=== PATIENT | female | born 1935 | race Caucasian/White ===

== ENCOUNTER → 2018-04-10 13:13 | Outpatient (CLI) | payer MEDICARE, OTHER, SELFPAY ==
[2018-04-10 13:50] LABS: Add Manual Diff / Slide Review NO; Basophils Percent Auto 1.2 % (0-2); Eosinophils Percent Auto 0.1 % (2-4); Hematocrit 31.2 % (36-46); Hemoglobin 10.9 g/dL (12.0-16.0); Lymphocytes Percent Auto 19.1 % (25-40); Mean Corpuscular HGB Conc 34.9 % (30-36); Mean Corpuscular Hemoglobin 33.7 PG (26-34); Mean Corpuscular Volume 96.7 fL (80-100); Monocytes Percent Auto 2.5 % (3-14); Neutrophils Absolute Auto 7500 /uL (3000-5900); Neutrophils Percent Auto 77.1 % (50-75); Platelet Count 245 X10^3/uL (150-400); Red Blood Cell Count 3.23 X10^6/uL (4.0-5.2); Red Cell Distribution Width 14.7 % (11.6-14.8); White Blood Cell Count 9.8 X10^3/uL (4.5-11.0)
[2018-04-10 14:02] LABS: BUN Creatinine Ratio 23.3 (6-22); Calcium 9.3 mg/dL (8.4-10.2); Estimated Glomerular Filt Rate 33.4 mL/min (>60); Glucose 114 mg/dL (80-110); HEMOLYSIS < 15 (0-50); Sodium 132 mmol/L (137-145)
== END ==
PROVIDERS: PCP Family Medicine; Visit Provider Internal Medicine Nephrology
DX: D63.1 Anemia in chronic kidney disease (principal)
CPT/HCPCS: 36415; 80048; 85025

== ENCOUNTER → 2018-05-08 13:04 | Oncology outpatient (ONC) | payer MEDICARE, OTHER, SELFPAY ==
[2018-05-08 13:29] LABS: Hematocrit 31.4 % (36-46); Hemoglobin 10.6 g/dL (12.0-16.0); Mean Corpuscular HGB Conc 33.7 % (30-36); Mean Corpuscular Hemoglobin 32.1 PG (26-34); Mean Corpuscular Volume 95.5 fL (80-100); Platelet Count 302 X10^3/uL (150-400); Red Blood Cell Count 3.29 X10^6/uL (4.0-5.2); White Blood Cell Count 12.5 X10^3/uL (4.5-11.0)
[2018-05-08 13:30] LABS: Add Manual Diff / Slide Review YES
[2018-05-08 13:33] LABS: Blood Urea Nitrogen 36 mg/dL (7-17); Calcium 9.5 mg/dL (8.4-10.2); Carbon Dioxide 30 mmol/L (22-32); Chloride 97 mmol/L (98-107); Estimated Glomerular Filt Rate 33.4 mL/min (>60); Glucose 89 mg/dL (80-110); HEMOLYSIS < 15 (0-50); Potassium 4.3 mmol/L (3.4-5.1); Sodium 136 mmol/L (137-145)
--- NOTE | 2018-05-08 13:48 | PC.NURSE ---
HG 10.6-no shot needed per parameters.Pt /caregiver informed
[2018-05-08 13:58] LABS: Neutrophils Absolute Manual 8625 /uL (3000-5900); Nucleated Red Blood Cells 1 #/Diff; RBC Morphology Normal Morphology; Total Cells Counted 100
== END ==
LOC: ONC 13:06
PROVIDERS: Internal Medicine Nephrology; PCP Family Medicine; Visit Provider Family Medicine
DX: D63.1 Anemia in chronic kidney disease (principal); D64.9 Anemia, unspecified
CPT/HCPCS: 36415; 80048; 85025

== ENCOUNTER → 2018-06-05 14:06 | Outpatient (CLI) | payer MEDICARE, OTHER, SELFPAY ==
[2018-06-05 14:24] LABS: Add Manual Diff / Slide Review NO; Basophils Percent Auto 0.7 % (0-2); Hematocrit 29.9 % (36-46); Hemoglobin 10.2 g/dL (12.0-16.0); Mean Corpuscular HGB Conc 34.1 % (30-36); Mean Corpuscular Hemoglobin 32.1 PG (26-34); Mean Corpuscular Volume 94.2 fL (80-100); Monocytes Percent Auto 4.1 % (3-14); Neutrophils Absolute Auto 9500 /uL (3000-5900); Neutrophils Percent Auto 80.2 % (50-75); Platelet Count 293 X10^3/uL (150-400); Red Blood Cell Count 3.17 X10^6/uL (4.0-5.2); Red Cell Distribution Width 14.5 % (11.6-14.8); White Blood Cell Count 11.9 X10^3/uL (4.5-11.0)
[2018-06-05 14:44] LABS: Blood Urea Nitrogen 35 mg/dL (7-17); Calcium 9.5 mg/dL (8.4-10.2); Carbon Dioxide 29 mmol/L (22-32); Chloride 94 mmol/L (98-107); Estimated Glomerular Filt Rate 36.1 mL/min (>60); Glucose 98 mg/dL (80-110); HEMOLYSIS < 15 (0-50); Potassium 4.4 mmol/L (3.4-5.1); Sodium 131 mmol/L (137-145)
== END ==
PROVIDERS: PCP Family Medicine; Visit Provider Internal Medicine Nephrology
DX: N18.3 Chronic kidney disease, stage 3 (moderate) (principal); D63.1 Anemia in chronic kidney disease
CPT/HCPCS: 36415; 80048; 85025

== ENCOUNTER 2018-06-14 10:55 | Inpatient (IN) | payer MEDICARE, OTHER, SELFPAY ==
[2018-06-14 11:00] VITALS: BP 170/88; PULSE 98; RESP 18; TEMP 36.4; O2SAT 99
--- NOTE | 2018-06-14 11:14 | ED_ITS ---
HPI - General Adult General Chief complaint: Altered Mental Status Stated complaint: sister states she is very distressed Time Seen by Provider: 06/14/18 11:02 Source: family Mode of arrival: ambulatory Limitations: no limitations History of Present Illness HPI narrative: 83-year-old female brought in by the family for concerns of not being able to take care of her at home. Patient's family reports that over the past several days the patient has become more confused and agitated at home. They report that she has been repeating herself on multiple things and apologizing all the time For no reason. No reports of trauma. Patient is living with her brother and his because the patient's is in a rehab facility after fall he took approximately 1 week ago. Patient's family reports that they feel like her mental status has been deteriorating over the past several days. Related Data Home Medications Medication Instructions Recorded Confirmed estradiol 1 mg PO QDAY #0 02/01/04 06/14/18 carvedilol [Coreg] 12.5 mg PO BID #0 11/12/16 06/14/18 prednisone 20 mg PO DAILY #0 05/03/17 06/14/18 sodium bicarbonate 650 mg PO BID #0 05/03/17 06/14/18 acyclovir 800 mg PO 5XD #0 09/19/17 06/14/18 potassium chloride [Klor-Con M20] 20 meq PO BIDCC #0 09/19/17 06/14/18 citalopram 20 mg tablet 20 mg PO DAILY 06/11/18 06/14/18 clotrimazole-betamethasone 1 1 applic TOP BID 10 Days #30 gram 06/11/18 06/14/18 %-0.05 % topical cream tqlzvtem-egj-QQ-lycopen-lutein 1 tab PO DAILY 06/14/18 06/14/18 [Centrum Silver] Previous Rx's Medication Instructions Recorded magnesium 200 mg PO QDAY #30 tab 03/26/17 quetiapine 100 mg tablet 100 mg PO HS 30 Days #30 tab 04/10/18 Allergies Allergy/AdvReac Type Severity Reaction Status Date / Time ascorbic acid Allergy Unknown Verified 06/14/18 11:44 aspirin [ASPIRIN] Allergy Unknown CHILDHOOD Verified 06/14/18 11:44 RX. Review of Systems Review of Systems Patient denies any symptoms Constitutional Denies headache(s) ENT Ears, Nose, Mouth, and Throat: Denies headache(s) Cardiovascular Denies chest pain and Denies dyspnea Respiratory Denies cough and Denies dyspnea Gastrointestinal Gastrointestinal: Denies abdominal pain, Denies diarrhea and Denies vomiting Genitourinary Denies dysuria and Denies urinary incontinence Musculoskeletal Denies myalgias and Denies arthralgias Integumentary/Breasts Denies lesions and Denies rash Neurologic Reports behavioral changes ( reported by family patient denies this), Denies confusion and Denies headache(s) Psychiatric Reports behavioral changes ( reported by family patient denies this) and Denies confusion Hematologic/Lymphatic Denies easy bleeding and Denies easy bruising PFSH Medical History Hypertension (Acute) Urinary retention (Acute) Social History Smoking Status: Never smoker Exam Initial Vital Signs Initial Vital Signs: Vital Signs Temperature 97.5 F L 06/14/18 11:00 Pulse Rate 98 H 06/14/18 11:00 Respiratory Rate 18 06/14/18 11:00 Blood Pressure 170/88 H 06/14/18 11:00 Pulse Oximetry 99 06/14/18 11:00 Const General: cooperative, comfortable, well groomed and No acute distress Orientation: alert and awake HENMT Head: normal to inspection and normocephalic Resp Effort & Inspection: normal respiratory effort Auscultation: clear to auscultation bilaterally Cardio Rate: regular rate Rhythm: regular rhythm Pulses: radial pulses present GI Inspection: non-distended Palpation: soft, No firm and No tender Other: patient with a bladder prolapse Back/Spine/Pelvis Back: No CVA tenderness Skin Lesions: no lesions Rashes: no rashes Neuro General: alert, awake and oriented ( person and place had trouble with the year) Speech: speech normal Extrem General: normal to inspection and capillary refill normal Psych Appearance: grossly normal, well kempt and not disheveled Course Orders Ordered: ED Orders 06/14/18 11:48 Consult to [employer] Stat 06/14/18 11:53 Acetaminophen Stat Ammonia (NH3) Stat Complete Blood Count AUTO DIFF Stat Comprehensive Metabolic Panel Stat Ethanol (ETOH) Stat Salicylate Stat Thyroid Stimulating Hormone Stat 06/14/18 13:25 Urinalysis and Microscopic Stat Urine Culture Stat Urine Drug Screen, Rapid Stat 06/14/18 16:36 Consult to Physician Routine 06/14/18 19:45 Education, smoking cessation ONGOING 06/14/18 19:49 Consult to [employer] Routine 06/15/18 05:00 Basic Metabolic Panel Routine Complete Blood Count AUTO DIFF Routine Magnesium Routine Acetaminophen (Tylenol) 650 mg PO Q6HR PRN PRN Reason: As Needed for Fever/Mild Pain Calcium Carbonate (Tums) 1,000 mg PO Q4HR PRN PRN Reason: Dyspepsia Carvedilol (Coreg) 12.5 mg PO BID [facility] Citalopram Hydrobromide (Celexa) 20 mg PO DAILY [facility] Enoxaparin Sodium (Lovenox) 30 mg SUBCUT DAILY [facility] Estradiol (Estrace) 1 mg PO DAILY IVAN Magnesium Hydroxide (Milk Of Magnesia) 30 ml PO DAILY PRN PRN Reason: Constipation Potassium Chloride (Klor-Con M20) 20 meq PO BIDWM IVAN Prednisone (Deltasone) 20 mg PO DAILY [facility] Quetiapine Fumarate (Seroquel) 100 mg PO BEDTIME [facility] Vital Signs - 8 hr 06/14/18 13:00 06/14/18 16:07 06/14/18 19:59 Pulse Rate 78 84 Respiratory Rate 21 18 Blood Pressure [Left Arm] 157/87 H 191/85 H Pulse Oximetry 98 99 99 Medical Decision Making [facility] Narrative Medical decision making narrative: patient is alert and oriented to person and place. She denies any symptoms upon my evaluation. She denies any urinary symptoms however did have a bladder prolapse and with multiple attempts to urinate here in the emergency department was unable to. A Arteaga catheter was placed with a return of greater than 1000 cc of urine. The Arteaga was left in place. It does not show that there is any signs of a urinary tract infection. Patient's family was at bedside state that she has been deteriorating over the past several days and is becoming more agitated. Unable to contact the patient' s primary doctor or her mental health provider because they are not in the office today. The last mental health provider notes stated they were going to increase her medication in the evening And then re-evaluate. This was done earlier this week. Patient was seen by social work here in the emergency department. She was also evaluated by the [facility] facility where her is currently located. They did not want to take the patient until they knew what her baseline mental status was at night. Patient's family refusing to take the patient home citing safety issues They state that they are not able to take care of her at home. discussed the case with Dr. Crowe who will admit for observation discussed the case with the family who are in agreement. The patient does not want to be admitted to the hospital. Does have an elevated white blood cell count but no other signs of infection patient is also hypothyroid Lab Data Lab results reviewed: Yes I reviewed the patient's lab results. Result diagrams: 06/14/18 11:53 06/14/18 11:53 Lab Results 06/14/18 06/14/18 06/14/18 Range/Units 11:53 11:53 11:53 WBC 13.3 H (4.5-11.0) X10^3/uL RBC 3.69 L (4.0-5.2) X10^6/uL Hgb 11.8 L (12.0-16.0) g/dL Hct 34.3 L (36-46) % MCV 93.2 (80-100) fL MCH 32.0 (26-34) PG MCHC 34.3 (30-36) % RDW 14.5 (11.6-14.8) % Plt Count 321 (150-400) X10^3/uL Neut % (Auto) 73.6 (50-75) % Lymph % (Auto) 19.7 L (25-40) % [place] % (Auto) 6.1 (3-14) % Eos % (Auto) 0.1 L (2-4) % Baso % (Auto) 0.5 (0-2) % Neut # (Auto) 9800 H (6403-2614) /uL Sodium 127 L (137-145) mmol/L Potassium 4.7 (3.4-5.1) mmol/L Chloride 92 L (98-107) mmol/L Carbon Dioxide 25 (22-32) mmol/L BUN 40 H (7-17) mg/dL Creatinine 1.60 H (0.52-1.04) mg/dL Estimated GFR 30.9 L (>60) mL/min BUN/Creatinine Ratio 25.0 H (6-22) Glucose 98 (80-110) mg/dL Calcium 10.1 (8.4-10.2) mg/dL Total Bilirubin 0.5 (0.2-1.3) mg/dL AST 29 (14-36) IU/L ALT 21 (9-52) IU/L Alkaline Phosphatase 68 (38-126) U/L Ammonia < 9.0 L (9-30) umol/L Total Protein 7.5 (6.3-8.2) g/dL Albumin 4.3 (3.5-5.0) g/dL Globulin 3.2 (1.7-4.1) g/dL Albumin/Globulin Ratio 1.3 (1.0-2.8) TSH (0.47-4.68) uIU/mL Urine Color Urine Appearance Urine pH (4.5-8.0) Ur Specific [place] (1.000-1.035) Urine Protein (Negative) Urine Glucose (UA) (Normal) g/dL Urine Ketones (NEGATIVE) Urine Occult Blood (Negative) Urine Nitrate (Negative) Urine Bilirubin (NEGATIVE) Urine Urobilinogen (0.2) E.U./dL Ur Leukocyte Esterase (NEGATIVE) Urine RBC (0-5/HPF) Urine WBC (0-5/HPF) Ur Squamous Epith Cells Urine Bacteria (None) Ur Culture Indicated? Micro UA Comment Salicylates < 1.0 (<20) mg/dL Urine Opiates Screen (Negative) Ur Oxycodone Screen (Negative) Urine Methadone Screen (Negative) Acetaminophen < 10 L (10-30) ug/mL Ur Barbiturates Screen (Negative) U Tricyclic Antidepress (Negative) Ur Phencyclidine Scrn (Negative) Ur Amphetamines Screen (Negative) U Methamphetamines Scrn (Negative) Ur MDMA Scrn (Ecstasy) (Negative) U Benzodiazepines Scrn (Negative) Urine Cocaine Screen (Negative) U Marijuana (THC) Screen (Negative) Ethyl Alcohol < 10 mg/dL 06/14/18 06/14/18 06/14/18 Range/Units 11:53 13:25 13:25 WBC (4.5-11.0) X10^3/uL RBC (4.0-5.2) X10^6/uL Hgb (12.0-16.0) g/dL Hct (36-46) % MCV (80-100) fL MCH (26-34) PG MCHC (30-36) % RDW (11.6-14.8) % Plt Count (150-400) X10^3/uL Neut % (Auto) (50-75) % Lymph % (Auto) (25-40) % [place] % (Auto) (3-14) % Eos % (Auto) (2-4) % Baso % (Auto) (0-2) % Neut # (Auto) (1771-8694) /uL Sodium (137-145) mmol/L Potassium (3.4-5.1) mmol/L Chloride (98-107) mmol/L Carbon Dioxide (22-32) mmol/L BUN (7-17) mg/dL Creatinine (0.52-1.04) mg/dL Estimated GFR (>60) mL/min BUN/Creatinine Ratio (6-22) Glucose (80-110) mg/dL Calcium (8.4-10.2) mg/dL Total Bilirubin (0.2-1.3) mg/dL AST (14-36) IU/L ALT (9-52) IU/L Alkaline Phosphatase (38-126) U/L Ammonia (9-30) umol/L Total Protein (6.3-8.2) g/dL Albumin (3.5-5.0) g/dL Globulin (1.7-4.1) g/dL Albumin/Globulin Ratio (1.0-2.8) TSH 16.70 H (0.47-4.68) uIU/mL Urine Color Yellow Urine Appearance Clear Urine pH 7.0 (4.5-8.0) Ur Specific [place] 1.015 (1.000-1.035) Urine Protein Negative (Negative) Urine Glucose (UA) Negative (Normal) g/dL Urine Ketones Negative (NEGATIVE) Urine Occult Blood Trace-lysed (Negative) Urine Nitrate Negative (Negative) Urine Bilirubin Negative (NEGATIVE) Urine Urobilinogen 0.2 (0.2) E.U./dL Ur Leukocyte Esterase Negative (NEGATIVE) Urine RBC 1-5/hpf (0-5/HPF) Urine WBC 0-1/hpf (0-5/HPF) Ur Squamous Epith Cells 0-1 /hpf Urine Bacteria Occasional (0-1) (None) Ur Culture Indicated? Not Reportable Micro UA Comment Not Reportable Salicylates (<20) mg/dL Urine Opiates Screen Negative (Negative) Ur Oxycodone Screen Negative (Negative) Urine Methadone Screen Negative (Negative) Acetaminophen (10-30) ug/mL Ur Barbiturates Screen Negative (Negative) U Tricyclic Antidepress Positive H (Negative) Ur Phencyclidine Scrn Negative (Negative) Ur Amphetamines Screen Negative (Negative) U Methamphetamines Scrn Negative (Negative) Ur MDMA Scrn (Ecstasy) Negative (Negative) U Benzodiazepines Scrn Negative (Negative) Urine Cocaine Screen Negative (Negative) U Marijuana (THC) Screen Negative (Negative) Ethyl Alcohol mg/dL Discharge Plan Departure Patient Disposition: Admitted as Observation Clinical Impression: Acute urinary retention, Hypothyroid, Acute alteration in mental status Discharge Date/Time: 06/14/18 16:47 Admit Date/Time: 06/14/18 16:31 Admit Provider: Malik Crowe
--- NOTE | 2018-06-14 11:42 | PC.NURSE ---
Pt has prolapsed bladder noted when pt escorted to bathroom. Pt states she can not void. Dr. Sheriff made aware.
[2018-06-14 12:25] LABS: Acetaminophen < 10 ug/mL (10-30); Alanine Aminotransferase 21 IU/L (9-52); Albumin 4.3 g/dL (3.5-5.0); Albumin Globulin Ratio 1.3 (1.0-2.8); Alkaline Phosphatase 68 U/L (38-126); Ammonia (NH3) < 9.0 umol/L (9-30); Aspartate Aminotransferase 29 IU/L (14-36); Bilirubin Total 0.5 mg/dL (0.2-1.3); Blood Urea Nitrogen 40 mg/dL (7-17); Calcium 10.1 mg/dL (8.4-10.2); Carbon Dioxide 25 mmol/L (22-32); Chloride 92 mmol/L (98-107); Estimated Glomerular Filt Rate 30.9 mL/min (>60); Ethanol (ETOH) < 10 mg/dL; Globulin 3.2 g/dL (1.7-4.1); Glucose 98 mg/dL (80-110); HEMOLYSIS 39 (0-50); Potassium 4.7 mmol/L (3.4-5.1); Sodium 127 mmol/L (137-145); Total Protein 7.5 g/dL (6.3-8.2)
[2018-06-14 12:26] LABS: Add Manual Diff / Slide Review NO; Basophils Percent Auto 0.5 % (0-2); Eosinophils Percent Auto 0.1 % (2-4); Hematocrit 34.3 % (36-46); Hemoglobin 11.8 g/dL (12.0-16.0); Lymphocytes Percent Auto 19.7 % (25-40); Mean Corpuscular HGB Conc 34.3 % (30-36); Mean Corpuscular Volume 93.2 fL (80-100); Monocytes Percent Auto 6.1 % (3-14); Neutrophils Absolute Auto 9800 /uL (3000-5900); Neutrophils Percent Auto 73.6 % (50-75); Platelet Count 321 X10^3/uL (150-400); Red Blood Cell Count 3.69 X10^6/uL (4.0-5.2); Red Cell Distribution Width 14.5 % (11.6-14.8); Salicylate < 1.0 mg/dL (<20); White Blood Cell Count 13.3 X10^3/uL (4.5-11.0)
[2018-06-14 13:00] VITALS: BP 157/87; PULSE 78; RESP 21; O2SAT 98
--- NOTE | 2018-06-14 13:31 | PC.NURSE ---
Dr. Sheriff reduced prolapsed bladder and I placed gandara without difficulty. > 1000 cc out.
[2018-06-14 13:41] LABS: Appearance Urine UA CLEAR; Bilirubin Urine UA NEGATIVE (NEGATIVE); Color Urine UA YELLOW; Glucose Urine UA NEGATIVE (Normal); Ketones Urine UA NEGATIVE (NEGATIVE); Leukocyte Esterase Urine UA NEGATIVE (NEGATIVE); Nitrite Urine UA Negative (Negative); Occult Blood Urine UA TRACE-LYSED (Negative); Protein Urine UA NEGATIVE (Negative); Specific Gravity Urine UA 1.015 (1.000-1.035); Urobilinogen Urine UA 0.2 E.U./dL (0.2)
[2018-06-14 13:52] LABS: Bacteria Urine Occasional (0-1); RBC Urine 1-5/HPF (0-5/HPF); Squamous Epithelial Cell Urine 0-1 /HPF; WBC Urine 0-1/HPF (0-5/HPF)
[2018-06-14 13:57] LABS: Urine Amphetamines Negative (Negative); Urine Barbiturates Negative (Negative); Urine Benzodiazepines Negative (Negative); Urine Cocaine Negative (Negative); Urine MDMA Negative (Negative); Urine Methadone Negative (Negative); Urine Methamphetamines Negative (Negative); Urine Morphine/Opi cutoff 2000 Negative (Negative); Urine Phencyclidine Negative (Negative); Urine Tetrahydrocannabinol Negative (Negative)
[2018-06-14 13:58] LABS: Urine Oxycodone Negative (Negative); Urine Tricyclic Antidepressant Positive (Negative)
[2018-06-14 16:07] VITALS: BP 191/85; PULSE 84; RESP 18; O2SAT 99
[2018-06-14 16:55] VITALS: BMI 20.4
[2018-06-14 19:10] VITALS: BP 192/95; PULSE 78; RESP 16; TEMP 36.9; O2SAT 97
--- NOTE | 2018-06-14 19:48 | PC.NURSE ---
Pt to acute care approx at 1710. Pt able to transfer from ER stretcher to AC bed SBA. Pt agitated and tearful stating, I don't know why I am here. I feel like I am getting railroaded by my sister and her ! Frequent reminders needed to pt to remind her that she has a catheter in place. Arteaga patent, draining clear yellow urine. Pt denies pain, nausea. and numbness and tingling. BA in place. Pt niece at bedside. 99% RA, LS clear. Pt orientated to room, call light, and bed controls with reminders needed d/t pt baseline dementia. Will continue to monitor.
--- NOTE | 2018-06-14 19:53 | PM.HP.1 ---
History of Present Illness Date Patient Seen: 06/14/18 Time Patient Seen: 19:53 Chief complaint: sister states she is very distressed Narrative: 83-year-old patient who usually lives with her who had a rather significant fall of a couple weeks ago I think falling down the stairs at home causing some bleeding intracranially as well as a neck injury that led to a visit 1st to our ER and then to [facility] for stay. On discharge from there he moved to [facility] which he's has been at for the past 4 days. In the meantime patient has been living with her brother and [id number] I think but apparently she has been quite disturbed by this process, quite confused, up through the night loudly complaining and disruptive. Seems to be getting worse apparently so she was brought to the emergency room today for evaluation. She was found to have significant urinary retention but nothing else that seen at the place. It seemed most appropriate for her to return home to see her usual MD in the office tomorrow but the family refused to take her home as the disruption that she caused was causing issues for the family that they could no longer tolerate. Talking with the patient today she has no idea why she is here she has a sense that it is due to some issues with family so she is frustrated and fearful she insisted several times that she just wanted to be back home with her even as I explained the above. She denies any particular complaints denies any issues at home. A grandniece I think came in later and added a calming influence. Patient History Medical History Hypertension (Acute) Family & Social History Safety & Behavioral: Feels Safe in Current Yes Environment Been Physically Hurt or No Threatened By a Person Tobacco & Substance use: Smoking Status Never smoker alcohol intake frequency 0-2 drinks per day Substance Use Type does not use Meds Home Medications Medication Instructions Recorded Confirmed Type estradiol 1 mg PO QDAY #0 02/01/04 06/14/18 History carvedilol [Coreg] 12.5 mg PO BID #0 11/12/16 06/14/18 History magnesium 200 mg PO QDAY #30 tab 03/26/17 06/14/18 Rx prednisone 20 mg PO DAILY #0 05/03/17 06/14/18 History sodium bicarbonate 650 mg PO BID #0 05/03/17 06/14/18 History acyclovir 800 mg PO 5XD #0 09/19/17 06/14/18 History potassium chloride [Klor-Con M20] 20 meq PO BIDCC #0 09/19/17 06/14/18 History quetiapine 100 mg tablet 100 mg PO HS 30 Days #30 tab 04/10/18 06/14/18 Rx citalopram 20 mg tablet 20 mg PO DAILY 06/11/18 06/14/18 History clotrimazole-betamethasone 1 1 applic TOP BID 10 Days #30 gram 06/11/18 06/14/18 History %-0.05 % topical cream amlucnsr-gad-RB-lycopen-lutein 1 tab PO DAILY 06/14/18 06/14/18 History [Centrum Silver] Allergies Allergy/AdvReac Type Severity Reaction Status Date / Time ascorbic acid Allergy Unknown Verified 06/14/18 11:44 aspirin [ASPIRIN] Allergy Unknown CHILDHOOD Verified 06/14/18 11:44 RX. Exam Vital Signs (past 8 hours): - 06/14/18 13:00 06/14/18 16:07 Pulse Rate 78 84 Respiratory Rate 21 18 Blood Pressure [Left Arm] 157/87 H 191/85 H Pulse Oximetry 98 99 Oxygen Delivery Method Room Air Objective Labs Result Diagrams: 06/14/18 11:53 06/14/18 11:53 Labs: Laboratory Results - last 24 hr 06/14/18 06/14/18 06/14/18 11:53 11:53 11:53 WBC 13.3 H RBC 3.69 L Hgb 11.8 L Hct 34.3 L MCV 93.2 MCH 32.0 MCHC 34.3 RDW 14.5 Plt Count 321 Neut % (Auto) 73.6 Lymph % (Auto) 19.7 L [place] % (Auto) 6.1 Eos % (Auto) 0.1 L Baso % (Auto) 0.5 Neut # (Auto) 9800 H Sodium 127 L Potassium 4.7 Chloride 92 L Carbon Dioxide 25 BUN 40 H Creatinine 1.60 H Estimated GFR 30.9 L BUN/Creatinine Ratio 25.0 H Glucose 98 Calcium 10.1 Total Bilirubin 0.5 AST 29 ALT 21 Alkaline Phosphatase 68 Ammonia < 9.0 L Total Protein 7.5 Albumin 4.3 Globulin 3.2 Albumin/Globulin Ratio 1.3 TSH Urine Color Urine Appearance Urine pH Ur Specific [place] Urine Protein Urine Glucose (UA) Urine Ketones Urine Occult Blood Urine Nitrate Urine Bilirubin Urine Urobilinogen Ur Leukocyte Esterase Urine RBC Urine WBC Ur Squamous Epith Cells Urine Bacteria Ur Culture Indicated? Micro UA Comment Salicylates < 1.0 Urine Opiates Screen Ur Oxycodone Screen Urine Methadone Screen Acetaminophen < 10 L Ur Barbiturates Screen U Tricyclic Antidepress Ur Phencyclidine Scrn Ur Amphetamines Screen U Methamphetamines Scrn Ur MDMA Scrn (Ecstasy) U Benzodiazepines Scrn Urine Cocaine Screen U Marijuana (THC) Screen Ethyl Alcohol < 10 06/14/18 06/14/18 06/14/18 11:53 13:25 13:25 WBC RBC Hgb Hct MCV MCH MCHC RDW Plt Count Neut % (Auto) Lymph % (Auto) [place] % (Auto) Eos % (Auto) Baso % (Auto) Neut # (Auto) Sodium Potassium Chloride Carbon Dioxide BUN Creatinine Estimated GFR BUN/Creatinine Ratio Glucose Calcium Total Bilirubin AST ALT Alkaline Phosphatase Ammonia Total Protein Albumin Globulin Albumin/Globulin Ratio TSH 16.70 H Urine Color Yellow Urine Appearance Clear Urine pH 7.[address] [place] [address] [place] 1.015 Urine Protein Negative Urine Glucose (UA) Negative Urine Ketones Negative Urine Occult Blood Trace-lysed Urine Nitrate Negative Urine Bilirubin Negative Urine Urobilinogen 0.2 Ur Leukocyte Esterase Negative Urine RBC 1-5/hpf Urine WBC 0-1/hpf Ur Squamous Epith Cells 0-1 /hpf Urine Bacteria Occasional (0-1) Ur Culture Indicated? Not Reportable Micro UA Comment Not Reportable Salicylates Urine Opiates Screen Negative Ur Oxycodone Screen Negative Urine Methadone Screen Negative Acetaminophen Ur Barbiturates Screen Negative U Tricyclic Antidepress Positive H Ur Phencyclidine Scrn Negative Ur Amphetamines Screen Negative U Methamphetamines Scrn Negative Ur MDMA Scrn (Ecstasy) Negative U Benzodiazepines Scrn Negative Urine Cocaine Screen Negative U Marijuana (THC) Screen Negative Ethyl Alcohol Assessment & Plan (1) Acute urinary retention: Problem details: No clear cause but this statue retention of over a L Current visit: Yes Status: Acute (2) 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 Significant issue for today with confusion, frustration, Current visit: Yes Status: Chronic (7) Chronic kidney disease (CKD) stage G3a/A1, moderately decreased glomerular filtration rate (GFR) between 45-59 mL/min/1.73 square meter and albuminuria creatinine ratio less than 30 mg/g: Current visit: Yes Status: Acute Plan: Assessment/Plan Narrative: In for the night, will be admitted tonight as well, at her request will arrange for a visit between the 2. He may be here another couple days and then back to snf, so she will need to have another place to stay as it seems that she cannot live at home alone. I will leave that up to her usual m.d. Dr. Nixon. For mariely will keep her Arteaga in place and provide basic care.
[2018-06-14 19:59] VITALS: O2SAT 99
[2018-06-14] MEDS: ESTRADIOL 1 MG TABLET PO (21:03)
[2018-06-14] MEDS: CARVEDILOL 12.5 MG TABLET PO (21:04)
[2018-06-14] MEDS: POTASSIUM CHLORIDE 20 MEQ TAB PO (21:04)
[2018-06-14] MEDS: QUETIAPINE 100 MG TABLET PO (21:04)
[2018-06-15] VITALS (10 sets, daily range): BP systolic 110–146; BP diastolic 56–81; PULSE 74–87; RESP 16; TEMP 35.9–36.7; O2SAT 96–99
--- NOTE | 2018-06-15 01:36 | PC.NURSE ---
Addendum entered by Hannah Ochoa R.N. 06/15/18 05:07: Silvina visited at 0310, she was less agitated, seemed to be comfortable being at 's bedside even though he was not interested in having conversation. She was much more cooperative when she returned to her room, although still fussy about the bed and particular way Gandara was secured to her leg. She is eager to consume food, and accepts most suggestions for snacks. No pain, vitals stable, moves well. Original Note: Shift summary [id number] - Silvina was awake at change of shift, anxious about circumstances, stating that she trusted relatives to help her with day to day care and they brought her to hospital without reason. She is angry about the lack of communication and fact that she has been unable to see her , Asad, who was hospitalized. Relatives would not take her to [place] to visit him, and now he is admitted to [facility] ( room 222) and she is worried about his condition. She complains of hunger, bed comfort, gandara catheter and general inconveniences of being in a hospital room without her possessions. She was given soup, and taken to her 's room ( her was asleep ) but she was given an update on his condition and informed that he had fever. She was less agitated after visit, more agreeable to eating, consumed ice cream and went to sleep. Silvina ambulates well with 1 person assist, she is able to fully communicate needs although she tends to perseverate and has evidence of short term memory deficits.
[2018-06-15 05:44] LABS: Add Manual Diff / Slide Review NO; Basophils Percent Auto 0.4 % (0-2); Eosinophils Percent Auto 0.3 % (2-4); Hematocrit 31.4 % (36-46); Hemoglobin 10.7 g/dL (12.0-16.0); Lymphocytes Percent Auto 28.5 % (25-40); Mean Corpuscular HGB Conc 34.2 % (30-36); Mean Corpuscular Hemoglobin 32.1 PG (26-34); Mean Corpuscular Volume 94.1 fL (80-100); Monocytes Percent Auto 7.5 % (3-14); Neutrophils Absolute Auto 7700 /uL (3000-5900); Neutrophils Percent Auto 63.3 % (50-75); Platelet Count 298 X10^3/uL (150-400); Red Blood Cell Count 3.34 X10^6/uL (4.0-5.2); White Blood Cell Count 12.2 X10^3/uL (4.5-11.0)
[2018-06-15 05:53] LABS: BUN Creatinine Ratio 24.7 (6-22); Blood Urea Nitrogen 37 mg/dL (7-17); Calcium 9.6 mg/dL (8.4-10.2); Carbon Dioxide 24 mmol/L (22-32); Chloride 92 mmol/L (98-107); Estimated Glomerular Filt Rate 33.3 mL/min (>60); Glucose 118 mg/dL (80-110); HEMOLYSIS < 15 (0-50); Magnesium 2.1 mg/dL (1.6-2.3); Potassium 3.7 mmol/L (3.4-5.1); Sodium 125 mmol/L (137-145)
[2018-06-15] MEDS: predniSONE 20 MG TABLET PO (09:43)
[2018-06-15] MEDS: POTASSIUM CHLORIDE 20 MEQ TAB PO ×2 (09:43→18:20)
[2018-06-15] MEDS: CARVEDILOL 12.5 MG TABLET PO ×2 (09:43→21:34)
[2018-06-15] MEDS: ESTRADIOL 1 MG TABLET PO (09:43)
[2018-06-15] MEDS: ENOXAPARIN 30 MG/0.3 ML SYRINGE SUBCUT (09:43)
[2018-06-15] MEDS: CITALOPRAM 20 MG TABLET PO (09:43)
--- NOTE | 2018-06-15 13:25 | PM.CN ---
History of Present Illness Chief complaint: sister states she is very distressed Reason for consult: Restlessness/agitation in hospital Requesting provider: Hugo Nixon Narrative: CC: I'm so happy to see you! HOSPITAL COURSE: Admitted 06/14/18, brought to hospital by family who stated they were unable to handle things at home, refused to take her home for follow-up as an outpatient with PCP. Vitals largely stable, labwork in the ED unremarkable, comparable to previous values, with the exception of TSH which is elevated compared to previous. COLLATERAL FROM STAFF: Some agitation overnight. Accepting po meds. Wanting to spend time with her who is also in the hospital. INTERVIEW: Pt is known to this sports writer with most recent visit on 06/11/2018. 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 She has responded well to Seroquel, and has not appeared overtly manic or paranoid in several months. Patient states that she is happy to see this provider, and easily recognizes me as Dr. Chen before I introduced myself. She reports feeling okay, frustrated about not being able to see her , and frustrated about what's been going on with her family before she came here. She is frustrated about being here, but is happy to be able to see her . She denies physical complaints, states overall she is feeling okay. I reflected that she looks like she is feeling better than when I saw her in clinic last week, and she smiles. She reports not sleeping last night because she was anxious to spend time with her . She states that she knows he needs medical treatment, but is open to see him a few times today if possible. She clearly identifies that she is in the hospital, aware of current situation, and recognizes this provider easily. PAST PSYCHIATRIC HISTORY: Manic and psychotic symptoms when I 1st met patient in July 2017 which have responded to Seroquel. Other psychiatric history is relatively unremarkable. [facility] Medical History Hypertension (Acute) Urinary retention (Acute) Social History household members: family Smoking Status: Never smoker Meds Home Medications Medication Instructions Recorded Confirmed Type estradiol 1 mg PO QDAY #0 01/31/06/14/18 History carvedilol [Coreg] 12.5 mg PO BID #0 11/12/16 06/14/18 History magnesium 200 mg PO QDAY #30 tab 03/26/17 06/14/18 Rx prednisone 20 mg PO DAILY #0 05/03/17 06/14/18 History sodium bicarbonate 650 mg PO BID #0 05/03/17 06/14/18 History acyclovir 800 mg PO 5XD #0 09/19/17 06/14/18 History potassium chloride [Klor-Con M20] 20 meq PO BIDCC #0 09/19/17 06/14/18 History quetiapine 100 mg tablet 100 mg PO HS 30 Days #30 tab 04/10/18 06/14/18 Rx citalopram 20 mg tablet 20 mg PO DAILY 06/11/18 06/14/18 History clotrimazole-betamethasone 1 1 applic TOP BID 10 Days #30 gram 06/11/18 06/14/18 History %-0.05 % topical cream [id number]-lycopen-lutein 1 tab PO DAILY 06/14/18 06/14/18 History [Centrum Silver] Allergies Allergy/AdvReac Type Severity Reaction Status Date / Time ascorbic acid Allergy Unknown Verified 06/14/18 11:44 aspirin [ASPIRIN] Allergy Unknown CHILDHOOD Verified 06/14/18 11:44 RX. Review of Systems Constitutional Constitutional: Denies difficulty sleeping and Denies fatigue ENT Ears, Nose, Mouth, and Throat: No dizziness Cardiovascular Cardiovascular: Reports system reviewed; no additional complaints, except as documented Respiratory Respiratory: Reports system reviewed and no additional complaints, except as documented Genitourinary Genitourinary: Denies difficulty voiding (prior to admission) and Denies urinary incontinence Musculoskeletal Musculoskeletal: Denies back pain and Denies stiffness Neurologic Neurologic: Denies behavioral changes and Denies dizziness Psychiatric Psychiatric: Reports as per HPI and Denies behavioral changes Endocrine Endocrine: Denies fatigue Exam Vital Signs (past 8 hours): - 06/15/18 07:00 06/15/18 08:39 06/15/18 12:11 Temperature 98 F 97.8 F Pulse Rate 82 81 Respiratory Rate 16 16 Blood Pressure 135/56 H 143/71 H Pulse Oximetry 97 97 99 Oxygen Delivery Method Room Air Oxygen Flow Rate 0 Narrative Exam Narrative: MENTAL STATUS EXAM: Appearance: Petite female with thinning white hair, wearing hospital garb Behavior: Calm, good eye contact, no psychomotor agitation or slowing Gait: Not observed today Speech: normal volume & rate, easily interruptible Mood: ? ok ? Affect: euthymic, congruent, mildly irritable at times, normal range and reactivity, even improved from last week Thought Process: linear, perseverative, goal-oriented Thought Content: Denies SI, no evidence of HI, no clear evidence of hallucinations, no evidence of paranoia today Attention: Distractible Orientation: grossly oriented to place, person, date, situation Memory: Some impairment, not formally tested Insight: Fair to Limited Judgment: fair to limited Objective Labs Result Diagrams: 06/15/18 05:30 06/15/18 05:30 Labs: Laboratory Results - last 24 hr 06/14/18 06/14/18 06/15/18 13:25 13:25 05:30 WBC 12.2 H RBC 3.34 L Hgb 10.7 L Hct 31.4 L MCV 94.1 MCH 32.1 MCHC 34.2 RDW 14.0 Plt Count 298 Neut % (Auto) 63.3 Lymph % (Auto) 28.5 [place] % (Auto) 7.5 Eos % (Auto) 0.3 L Baso % (Auto) 0.4 Neut # (Auto) 7700 H Sodium Potassium Chloride Carbon Dioxide BUN Creatinine Estimated GFR BUN/Creatinine Ratio Glucose Calcium Magnesium Urine Color Yellow Urine Appearance Clear Urine pH 7.0 Ur Specific [place] 1.015 Urine Protein Negative Urine Glucose (UA) Negative Urine Ketones Negative Urine Occult Blood Trace-lysed Urine Nitrate Negative Urine Bilirubin Negative Urine Urobilinogen 0.2 Ur Leukocyte Esterase Negative Urine RBC 1-5/hpf Urine WBC 0-1/hpf Ur Squamous Epith Cells 0-1 /hpf Urine Bacteria Occasional (0-1) Ur Culture Indicated? Not Reportable Micro UA Comment Not Reportable Urine Opiates Screen Negative Ur Oxycodone Screen Negative Urine Methadone Screen Negative Ur Barbiturates Screen Negative U Tricyclic Antidepress Positive H Ur Phencyclidine Scrn Negative Ur Amphetamines Screen Negative U Methamphetamines Scrn Negative Ur MDMA Scrn (Ecstasy) Negative U Benzodiazepines Scrn Negative Urine Cocaine Screen Negative U Marijuana (THC) Screen Negative 06/15/18 05:30 WBC RBC Hgb Hct MCV MCH MCHC RDW Plt Count Neut % (Auto) Lymph % (Auto) [place] % (Auto) Eos % (Auto) Baso % (Auto) Neut # (Auto) Sodium 125 L Potassium 3.7 Chloride 92 L Carbon Dioxide 24 BUN 37 H Creatinine 1.50 H Estimated GFR 33.3 L BUN/Creatinine Ratio 24.7 H Glucose 118 H Calcium 9.6 Magnesium 2.1 Urine Color Urine Appearance Urine pH Ur Specific [place] Urine Protein Urine Glucose (UA) Urine Ketones Urine Occult Blood Urine Nitrate Urine Bilirubin Urine Urobilinogen Ur Leukocyte Esterase Urine RBC Urine WBC Ur Squamous Epith Cells Urine Bacteria Ur Culture Indicated? Micro UA Comment Urine Opiates Screen Ur Oxycodone Screen Urine Methadone Screen Ur Barbiturates Screen U Tricyclic Antidepress Ur Phencyclidine Scrn Ur Amphetamines Screen U Methamphetamines Scrn Ur MDMA Scrn (Ecstasy) U Benzodiazepines Scrn Urine Cocaine Screen U Marijuana (THC) Screen Assessment & Plan Plan: Assessment/Plan Narrative: ASSESSMENT: Silvina Pavon is an 83-year-old female, , with autoimmune renal disease, anemia, and hypergammaglobulinemia; known to me from outpatient clinic where I follow her for symptoms of mood and paranoia including episode in July likely precipitated by ongoing corticosteroid treatment. Quetiapine has been quite effective for her, with significant improvement in manic and paranoid symptoms, and we have maintained her on this medication at 100 mg dose each night. By my assessment, she is at her baseline, appears less anxious than when I saw her in clinic one week ago. Certainly, the stress of her 's accident and medical illness, as well as change in living situation are stressful for her, and I suspect that some level of agitation is due to increased stress. She has the potential for manic symptoms, particularly due to the need for ongoing treatment with prednisone, so we should monitor closely if she is not sleeping consistently. We had stopped citalopram previously, with no adverse consequences for mood or anxiety, this can be stopped in the hospital. Given her response to quetiapine, it would also be appropriate to use a 25 mg dose b.i.d. as needed for severe agitation or anxiety. I would be concerned about giving medications like benzodiazepines as they may cause disinhibition or worsen agitation. I would like to get EKG for current QTc, as quetiapine can cause prolongation & we were planning to repeat this in the near future with PCP. Medically, her TSH is elevated, I will defer to PCP if this needs to be addressed. Since I have known this patient, her sister Katya has been a good source of support and I suspect she may have input about disposition. DIAGNOSES: Unspecified mood disorder F39 History of manic episode induced by corticosteroids RECOMMENDATIONS: - Stop citalopram - Continue quetiapine 100mg PO QHS - Start quetiapine 25mg BID prn agitation - defer to primary team if TSH needs to be addressed - Obtain EKG to check QTc Time Spent With Patient Time with patient: 25 - 35 minutes
--- NOTE | 2018-06-15 13:28 | P.CONS_ITS ---
History of Present Illness Chief complaint: sister states she is very distressed Reason for consult: Restlessness/agitation in hospital Requesting provider: Hugo Nixon Narrative: CC: I'm so happy to see you! HOSPITAL COURSE: Admitted 06/14/18, brought to hospital by family who stated they were unable to handle things at home, refused to take her home for follow-up as an outpatient with PCP. Vitals largely stable, labwork in the ED unremarkable, comparable to previous values, with the exception of TSH which is elevated compared to previous. COLLATERAL FROM STAFF: Some agitation overnight. Accepting po meds. Wanting to spend time with her who is also in the hospital. INTERVIEW: Pt is known to this sql report writer with most recent visit on 06/11/2018. 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 She has responded well to Seroquel, and has not appeared overtly manic or paranoid in several months. Patient states that she is happy to see this provider, and easily recognizes me as Dr. Chen before I introduced myself. She reports feeling okay, frustrated about not being able to see her , and frustrated about what's been going on with her family before she came here. She is frustrated about being here, but is happy to be able to see her . She denies physical complaints, states overall she is feeling okay. I reflected that she looks like she is feeling better than when I saw her in clinic last week, and she smiles. She reports not sleeping last night because she was anxious to spend time with her . She states that she knows he needs medical treatment, but is open to see him a few times today if possible. She clearly identifies that she is in the hospital, aware of current situation, and recognizes this provider easily. PAST PSYCHIATRIC HISTORY: Manic and psychotic symptoms when I 1st met patient in July 2017 which have responded to Seroquel. Other psychiatric history is relatively unremarkable. [facility] Medical History Hypertension (Acute) Urinary retention (Acute) Social History household members: family Smoking Status: Never smoker Meds Home Medications Medication Instructions Recorded Confirmed Type estradiol 1 mg PO QDAY #0 01/31/06/14/18 History carvedilol [Coreg] 12.5 mg PO BID #0 11/12/16 06/14/18 History magnesium 200 mg PO QDAY #30 tab 03/26/17 06/14/18 Rx prednisone 20 mg PO DAILY #0 05/03/17 06/14/18 History sodium bicarbonate 650 mg PO BID #0 05/03/17 06/14/18 History acyclovir 800 mg PO 5XD #0 09/19/17 06/14/18 History potassium chloride [Klor-Con M20] 20 meq PO BIDCC #0 09/19/17 06/14/18 History quetiapine 100 mg tablet 100 mg PO HS 30 Days #30 tab 04/10/18 06/14/18 Rx citalopram 20 mg tablet 20 mg PO DAILY 06/11/18 06/14/18 History clotrimazole-betamethasone 1 1 applic TOP BID 10 Days #30 gram 06/11/18 History %-0.05 % topical cream [id number]-sib-[id number]-lycopen-lutein 1 tab PO DAILY 06/14/18 06/14/18 History [Centrum Silver] Allergies Allergy/AdvReac Type Severity Reaction Status Date / Time ascorbic acid Allergy Unknown Verified 06/14/18 11:44 aspirin [ASPIRIN] Allergy Unknown CHILDHOOD Verified 06/14/18 11:44 RX. Review of Systems Constitutional Constitutional: Denies difficulty sleeping and Denies fatigue ENT Ears, Nose, Mouth, and Throat: No dizziness Cardiovascular Cardiovascular: Reports system reviewed; no additional complaints, except as documented Respiratory Respiratory: Reports system reviewed and no additional complaints, except as documented Genitourinary Genitourinary: Denies difficulty voiding (prior to admission) and Denies urinary incontinence Musculoskeletal Musculoskeletal: Denies back pain and Denies stiffness Neurologic Neurologic: Denies behavioral changes and Denies dizziness Psychiatric Psychiatric: Reports as per HPI and Denies behavioral changes Endocrine Endocrine: Denies fatigue Exam Vital Signs (past 8 hours): - 06/15/18 07:00 06/15/18 08:39 06/15/18 12:11 Temperature 98 F 97.8 F Pulse Rate 82 81 Respiratory Rate 16 16 Blood Pressure 135/56 H 143/71 H Pulse Oximetry 97 97 99 Oxygen Delivery Method Room Air Oxygen Flow Rate 0 Narrative Exam Narrative: MENTAL STATUS EXAM: Appearance: Petite female with thinning white hair, wearing hospital garb Behavior: Calm, good eye contact, no psychomotor agitation or slowing Gait: Not observed today Speech: normal volume & rate, easily interruptible Mood: ? ok ? Affect: euthymic, congruent, mildly irritable at times, normal range and reactivity, even improved from last week Thought Process: linear, perseverative, goal-oriented Thought Content: Denies SI, no evidence of HI, no clear evidence of hallucinations, no evidence of paranoia today Attention: Distractible Orientation: grossly oriented to place, person, date, situation Memory: Some impairment, not formally tested Insight: Fair to Limited Judgment: fair to limited Objective Labs Result Diagrams: 06/15/18 05:30 06/15/18 05:30 Labs: Laboratory Results - last 24 hr 06/14/18 06/14/18 06/15/18 13:25 13:25 05:30 WBC 12.2 H RBC 3.34 L Hgb 10.7 L Hct 31.4 L MCV 94.1 MCH 32.1 MCHC 34.2 RDW 14.0 Plt Count 298 Neut % (Auto) 63.3 Lymph % (Auto) 28.5 [place] % (Auto) 7.5 Eos % (Auto) 0.3 L Baso % (Auto) 0.4 Neut # (Auto) 7700 H Sodium Potassium Chloride Carbon Dioxide BUN Creatinine Estimated GFR BUN/Creatinine Ratio Glucose Calcium Magnesium Urine Color Yellow Urine Appearance Clear Urine pH 7.0 Ur Specific [place] 1.015 Urine Protein Negative Urine Glucose (UA) Negative Urine Ketones Negative Urine Occult Blood Trace-lysed Urine Nitrate Negative Urine Bilirubin Negative Urine Urobilinogen 0.2 Ur Leukocyte Esterase Negative Urine RBC 1-5/hpf Urine WBC 0-1/hpf Ur Squamous Epith Cells 0-1 /hpf Urine Bacteria Occasional (0-1) Ur Culture Indicated? Not Reportable Micro UA Comment Not Reportable Urine Opiates Screen Negative Ur Oxycodone Screen Negative Urine Methadone Screen Negative Ur Barbiturates Screen Negative U Tricyclic Antidepress Positive H Ur Phencyclidine Scrn Negative Ur Amphetamines Screen Negative U Methamphetamines Scrn Negative Ur MDMA Scrn (Ecstasy) Negative U Benzodiazepines Scrn Negative Urine Cocaine Screen Negative U Marijuana (THC) Screen Negative 06/15/18 05:30 WBC RBC Hgb Hct MCV MCH MCHC RDW Plt Count Neut % (Auto) Lymph % (Auto) [place] % (Auto) Eos % (Auto) Baso % (Auto) Neut # (Auto) Sodium 125 L Potassium 3.7 Chloride 92 L Carbon Dioxide 24 BUN 37 H Creatinine 1.50 H Estimated GFR 33.3 L BUN/Creatinine Ratio 24.7 H Glucose 118 H Calcium 9.6 Magnesium 2.1 Urine Color Urine Appearance Urine pH Ur Specific [place] Urine Protein Urine Glucose (UA) Urine Ketones Urine Occult Blood Urine Nitrate Urine Bilirubin Urine Urobilinogen Ur Leukocyte Esterase Urine RBC Urine WBC Ur Squamous Epith Cells Urine Bacteria Ur Culture Indicated? Micro UA Comment Urine Opiates Screen Ur Oxycodone Screen Urine Methadone Screen Ur Barbiturates Screen U Tricyclic Antidepress Ur Phencyclidine Scrn Ur Amphetamines Screen U Methamphetamines Scrn Ur MDMA Scrn (Ecstasy) U Benzodiazepines Scrn Urine Cocaine Screen U Marijuana (THC) Screen Assessment & Plan Plan: Assessment/Plan Narrative: ASSESSMENT: Silvina Pavon is an 83-year-old female, , with autoimmune renal disease , anemia, and hypergammaglobulinemia; known to me from outpatient clinic where I follow her for symptoms of mood and paranoia including episode in July likely precipitated by ongoing corticosteroid treatment. Quetiapine has been quite effective for her, with significant improvement in manic and paranoid symptoms, and we have maintained her on this medication at 100 mg dose each night. By my assessment, she is at her baseline, appears less anxious than when I saw her in clinic one week ago. Certainly, the stress of her 's accident and medical illness, as well as change in living situation are stressful for her , and I suspect that some level of agitation is due to increased stress. She has the potential for manic symptoms, particularly due to the need for ongoing treatment with prednisone, so we should monitor closely if she is not sleeping consistently. We had stopped citalopram previously, with no adverse consequences for mood or anxiety, this can be stopped in the hospital. Given her response to quetiapine, it would also be appropriate to use a 25 mg dose b.i.d. as needed for severe agitation or anxiety. I would be concerned about giving medications like benzodiazepines as they may cause disinhibition or worsen agitation. I would like to get EKG for current QTc, as quetiapine can cause prolongation & we were planning to repeat this in the near future with PCP. Medically, her TSH is elevated, I will defer to PCP if this needs to be addressed. Since I have known this patient, her sister Katya has been a good source of support and I suspect she may have input about disposition. DIAGNOSES: Unspecified mood disorder F39 History of manic episode induced by corticosteroids RECOMMENDATIONS: - Stop citalopram - Continue quetiapine 100mg PO QHS - Start quetiapine 25mg BID prn agitation - defer to primary team if TSH needs to be addressed - Obtain EKG to check QTc Time Spent With Patient Time with patient: 25 - 35 minutes
--- NOTE | 2018-06-15 16:11 | CM.IDA ---
DCP Assessment Note: Pt was seen in the ED by ANODE WORKER, ILSA Ocampo, unable to access her note. [facility] declined to admit from the ED d/t pt's h/o wondering at night and unknown Seroquel dosing(?) [facility] requests addtl observation at in order to identify pt's needs and decide if [facility] can accommodate patient. This ANODE WORKER was able to review case w/ Dr Hutson and Dr Chen today after their assessment. Dr Hutson familiar w/this pt and family but feels there is no home plan that is safe at this time. Family can not continue to care for pt at their home and spouse is not capable anymore -short term and skilled nursing(he is currently admitted in the ICU). Dr Chen has seen pt in the outpt setting, see her note. She feels pt is doing well today, she has remained calm and cooperative w/care today, see note for information. According to brief conversation w/ Michelle Enriquez, ED SWer, family might have some funding for private payment but inevitably Medicaid might be needed for assembler arranger care planning. DPOA is sister Katya P# [phone]. This ANODE WORKER unable to contact pt's DPOA to review DCP options and encourage the completion of a Medicaid application. I did contact Eri at [facility] and requested continue review of this pt's needs and a decision on [facility]'s capacity to care for this pt. Likely private payment to begin, pt remains observation status. Follow closely and f/u w/DPOA this w/e. Dr Chen back next week. ZEINA [place] Discharge Planning/Care Management CM Discharge Assessment Start: 06/15/18 16:07 Freq: Status: Active Protocol: Document 06/15/18 16:07 VIGNESH (Rec: 06/15/18 16:11 VIGNESH [id number]) Discharge Planning Assessment Assigned Offset Label Rewinder VIGNESH History Provided By Family Member Medical Record Prior Living Arrangements House Household Members family Type of transporation used prior to Relies on Others admit Independent with ADL's No Is patient alert and oriented? No Patient Discharge Plan Description Intermediate Facility Referrals Initiated Intermediate Review Status In Process Next Review Type Discharge Review
--- NOTE | 2018-06-15 16:42 | CM.SWNOTE ---
ED PLYWOOD AND VENEER REPAIRER Note: Note from June 15 original note not found Presenting problem: According to not provided to ED PLYWOOD AND VENEER REPAIRER written by pt's brother, she has been confused, repeating the same thing over and over. Although given reassurances, she has been fearful, and worried about going to a chcf. She was reported to be very demanding, sitting in the dark, compaining about the TV, too much light from the windows and wanted all music off. It was stated that she tended to be picky with food, but was eating small amounts. In terms of ADLS, pt was basically staying in bed a lot, but supposedly was able to get out of bed to go to the bathroom on her own. According to ehr brother Chris, who composed the information provided, pt had some periods of lucidity, but was often confused. Until June 06, pt's had been caring for pt, but he fell, was taken to [place] and then was residing at [facility]. The hope was that this pt could also go to [facility]. Nadia, from [facility] evaluated pt and did not feel that she could accept ehr at this time. She was concerned that pt might have more needs than could be managed at their facility especially with the concerns of the night time calls, and need for the bathroom. Although pt currently had a catheter, she did not seem to understand that there was not a need to go to the toilet. ED PLYWOOD AND VENEER REPAIRER had a lengthy meeting with pt's sister Katya ( Joanna Gonzalez) [phone]. She stated that she is the HCPOA if is unable to make the decisions. (at the time of this meeting pt's was back in the ED to be re-evaluated) Pt's sister Katya expressed that they had a very caring supportive family. Silvina Cruz has 2 surviving daughters; one son is due to suicide. Pt's daughters are Gabriela and Suzanne. Pt and her have been for 48 years. 's daughter Joan is also involved and supportive, but at this time, focused on the care and concerns of her father, pt's . [facility] met very briefly with pt with pt's RN, and pt's sister and char in the room. She had been inquiring about her and it was determined that it was important for pt to know that her was back in the emergency room, but not a lot of other information was provided to her. Her stare was vacant, and she seemed to lack the insight about her condition. She expressed a lot of anger towards her sister and repeatedly stated that she had trusted her. She responded well to her neice and at that point pt was escorted upstairs to a room. ED PLYWOOD AND VENEER REPAIRER spoke with Dennise, the PLYWOOD AND VENEER REPAIRER in care management about this pt and situation. It was determined that pt would need to be hospitalized given that she was not accepted at [facility] and there was not a safe discharge. Pt's MH dx was not provided, but she is followed by Dr Nixon (PCP) and Dr Chen(psychiatrist) CM to follow for discharge planning. Discharge Planning/Care Management CM Discharge Assessment Start: 06/15/18 16:07 Freq: Status: Active Protocol: Document 06/15/18 16:07 VIGNESH (Rec: 06/15/18 16:11 [id number]) Discharge Planning Assessment Assigned Soap Mixer History Provided By Family Member Medical Record Prior Living Arrangements House Household Members family Type of transporation used prior to Relies on Others admit Independent with ADL's No Is patient alert and oriented? No Patient Discharge Plan Description Senior Care Facility Referrals Initiated Senior Care Review Status In Process Next Review Type Discharge Review ED Crisis Response Assessment Start: 06/15/18 16:38 Freq: Status: Active Protocol: Document 06/14/18 14:38 BG (Rec: 06/15/18 16:42 BG [id number]) ED Crisis Response Assessment PLYWOOD AND VENEER REPAIRER Assessment Type Other Reason for PLYWOOD AND VENEER REPAIRER Referral Discharge planning Referred by ED staff Presenting Problem Pt is an 83 yo woman who has been increasingly agitated at home. She has been staying with ehr brother since her fell 06/06/18. Crisis Plan Pt is not able to return to brother's home as she was up throughout the night, fearful, agitated and needing constant reassurance. Resources Provided see attached note Action taken Admitted to hospital
--- NOTE | 2018-06-15 18:30 | PM.PN.1 ---
Subjective Date Patient Seen: 06/15/18 Time Patient Seen: 07:31 Interval history: Patient feeling better today. Has Arteaga placed. No other significant changes or complaints. Less anxious today. Was able to see her . Still struggling with mental status intermittently. Was a little confused last night. Otherwise no significant new changes or complaints. No abdominal pain. No frequency or urgency. Exam Vital Signs (past 8 hours): - 06/15/18 12:11 06/15/18 15:36 Temperature 97.8 F 98.0 F Pulse Rate 81 74 Respiratory Rate 16 16 Blood Pressure 143/71 H 138/81 H Pulse Oximetry 99 97 Oxygen Delivery Method Room Air Oxygen Flow Rate 0 Narrative Exam Narrative: Alert elderly female in no acute distress Lungs are clear. Heart regular rate and rhythm. Abdomen is soft positive bowel sounds nontender. Extremities are normal. 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 Appreciate Dr. Chen and her input. Will start intermittent Seroquel for agitation. Clearly this is the major issue that is keeping her from being able to go home. Very difficult. It has been the major stress on her . But otherwise seems to be okay. Patient at this time appears to be stable on will continue following. Hypothyroidism. Patient has been hypothyroid for some time. Has refused medication due to her perceived side effects. No change in treatment. Urinary retention. Will continue Arteaga and discontinued tomorrow morning. Re-evaluate at that time. History of autoimmune renal disease. Stable. Will re-evaluate in a.m.. 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 Will follow. DVT prophylaxis. On treatment. Disposition. Discussed extensively today with social Service. Really is the issue is placement. Her is in the hospital and has been recently injured. She is incapable of taking care of herself at home. Family is now apparently refusing to be involved. At this point will continue to search for safe environment and re-evaluate tomorrow Quality VTE Deep Vein Thrombosis/Pulmonary Embolism Present on Admission: No
--- NOTE | 2018-06-15 19:45 | PC.NURSE ---
iv catheter has infiltrated, per dr. Hutson, okay with no iv access. per family, would like a nutrition and dietary consult, dr. Hutson states he will order for patient. family was here to visit and help patient to ICU to visit . patient is resting in bed at this time with call light in reach.
[2018-06-15] MEDS: QUETIAPINE 100 MG TABLET PO (21:35)
[2018-06-16] VITALS (7 sets, daily range): BP systolic 123–132; BP diastolic 54–70; PULSE 64–70; RESP 13–18; TEMP 36.3–36.4; O2SAT 94–99
--- NOTE | 2018-06-16 02:25 | PC.NURSE ---
Addendum entered by Hannah Ochoa R.N. 06/16/18 05:24: Silvina has been sleeping soundly without wakening [id number], aroused for purposes of vitals and to remove the Arteaga, also to assess whether she wants to visit . She was comfortable in bed, preferred to remain sleeping and did not want to get up. Arteaga removed at 0520. Original Note: Shift summary [id number] - Silvina was awake at change of shift, seemed to be in a good mood, she reviewed her day, and seemed less anxious about her situation about being hospitalized. She shared that she wanted to see her night and requested that I take her down to see him. Shortly after being reassured that I would take her to ICU later in shift to visit, she fell soundly asleep.
[2018-06-16 05:57] LABS: Add Manual Diff / Slide Review NO; Basophils Percent Auto 0.1 % (0-2); Eosinophils Percent Auto 0.1 % (2-4); Hematocrit 29.9 % (36-46); Hemoglobin 10.3 g/dL (12.0-16.0); Lymphocytes Percent Auto 28.3 % (25-40); Mean Corpuscular HGB Conc 34.4 % (30-36); Mean Corpuscular Hemoglobin 32.1 PG (26-34); Mean Corpuscular Volume 93.4 fL (80-100); Monocytes Percent Auto 6.8 % (3-14); Neutrophils Absolute Auto 5800 /uL (3000-5900); Neutrophils Percent Auto 64.7 % (50-75); Platelet Count 270 X10^3/uL (150-400); Red Cell Distribution Width 14.2 % (11.6-14.8)
[2018-06-16 06:01] LABS: HEMOLYSIS < 15 (0-50); Sodium 127 mmol/L (137-145)
[2018-06-16 06:04] LABS: BUN Creatinine Ratio 21.3 (6-22); Blood Urea Nitrogen 32 mg/dL (7-17); Calcium 9.1 mg/dL (8.4-10.2); Carbon Dioxide 25 mmol/L (22-32); Chloride 97 mmol/L (98-107); Estimated Glomerular Filt Rate 33.3 mL/min (>60); Glucose 93 mg/dL (80-110); Potassium 4.3 mmol/L (3.4-5.1)
--- NOTE | 2018-06-16 09:14 | P.PN_ITS ---
Subjective Date Patient Seen: 06/16/18 Time Patient Seen: 09:11 Interval history: The patient is sleeping this morning. Cranky and irritated when I woke her up. No complaints of pain or other issues. Overall has had a good night. Exam Vital Signs (past 8 hours): - 06/16/18 04:05 06/16/18 05:06 06/16/18 08:23 Temperature 97.5 F L Pulse Rate 68 Respiratory Rate 16 Blood Pressure 128/70 H Pulse Oximetry 94 94 95 Oxygen Delivery Method Room Air Oxygen Flow Rate 0 Narrative Exam Narrative: Alert elderly female lying in bed no acute distress. Lungs are clear. Heart regular rate and rhythm. Abdomen is soft positive bowel sounds nontender. She is angry but interactive and appropriate. Not cooperative with questions or unclear of orientation. 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 At this point she seems to be stable. While she has difficult I do not think she has unable to be cared for outside the hospital. Will need to make some changes and hopefully find placement either with family or in another location. Biggest issue we have. Hypothyroidism. Patient has refused in the past for treatment will hold treatment at this time. Urinary retention etiology is unclear. Hopefully will be resolved Arteaga was discontinued. Hopefully she will remain stable. Re-evaluate over the next 8 hr. History of autoimmune renal failure. Stable. Will continue prednisone. Hypogammaglobinemia. Not an issue at this time. Will be followed as outpatient. DVT prophylaxis. On treatment. Disposition. Really this is a placement issue at this time. Have discussed extensively with social service. Family appears not to be willing to take her home. I think she is stable. Should be okay to go both emotionally and medically. We will see what we can set up. Quality VTE Deep Vein Thrombosis/Pulmonary Embolism Present on Admission: No
--- NOTE | 2018-06-16 09:17 | PC.NURSE ---
Day shift: Pt very agitated this AM on with staff home therapy rn. HR reg. VS ok. Lungs clear and RA 96%. 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 Bed alarm on. High fall risk. Dr Nixon met w/ Pt as well and she was not cooperative. stated that hard part would be finding placement for the Pt. Call light in reach and door ajar. Pt refused AM meds as well. When she is more cooperative will give meds. Will continue to monitor Pt.
--- NOTE | 2018-06-16 12:05 | PT.IPTN ---
Current Diagnoses Iron deficiency anemia, unspecified (06/14/18) Hypo-osmolality and hyponatremia (06/14/18) Hypokalemia (06/14/18) Unspecified dementia without behavioral disturbance (06/14/18) Major depressive disorder, single episode, unspecified (06/14/18) Chronic kidney disease, stage 3 (moderate) (06/14/18) Other retention of urine (06/14/18) Physical Therapy Treatment Note M3 PT-IP Subjective Start: 06/16/18 12:03 Freq: NEEDED Status: Active Protocol: Document 06/16/18 12:03 AB (Rec: 06/16/18 12:04 AB [id number]) Subjective Physical Therapy Visit Type Type Patient Refusal Notes attempted eval x 3 but pt refused. pt not very pleasant and stated that she is sleeping and not to talk to her.
--- NOTE | 2018-06-16 12:09 | PC.NURSE ---
Day shift: Pt refusing care from BIOSTATISTICIAN. Has been clam though. Family member was in w/ Pt at approx 1130 and Pt did not want to wake up. Per that family member more family will be up to see Pt this afternoon. Call light in reach. Bed alarm on. Door ajar. No s/s of pain or discomfort at this time.
[2018-06-16] MEDS: CARVEDILOL 12.5 MG TABLET PO (13:28)
[2018-06-16] MEDS: POTASSIUM CHLORIDE 20 MEQ TAB PO (13:28)
[2018-06-16] MEDS: ESTRADIOL 1 MG TABLET PO (13:29)
[2018-06-16] MEDS: QUETIAPINE 25 MG TABLET PO (13:29)
[2018-06-16] MEDS: predniSONE 20 MG TABLET PO (13:29)
--- NOTE | 2018-06-16 13:32 | PC.NURSE ---
Day shift: Pt awake now and vry confused. keeps asking what is going on. Family in room to help answer questions. Will give AM meds now that she is more cooperative. Called Dr Hutson to let know she is awake and family in room. He did not want to give any Magnesium at this time. Call light in reach.
--- NOTE | 2018-06-16 14:12 | CM.DPC ---
DCP Cont: Per MD, pt is medically stable for discharge pending safe d/c plan. Pt's spouse still in ICU and currently somewhat confused and not able to fully participate in d/c planning discussion for the pt and spouse likely hospitalized for at least a week before discharge. CASS called [facility] admissions Eri and confirmed that she spoke extensively yesterday with pt's DPOA/Sister Zeferino and discussed possible options for d/c including potential for private pay at [facility], possible Respite at [facility] if they have an opening, or [facility] for Respite/LTC per sister Zeferino's preference since she lives in [place]. Per Eri today, [facility] would need at least 48 hours of RN notes on the pt to determine her behaviors and needs before considering her for private pay placement. CASS called pt's DPOA sister Zeferino ([phone]) and confirmed that she plans to further discuss d/c planning with the pt today to determine likely preference of 1) Respite stay at [facility] 2) Respite stay/LTC at [facility] (and they likely will have an opening on Monday). CASS called admissions Carmencita at [facility] to inquire about availability and possible Respite for the pt and Carmencita confirmed with her Administrators that currently they do not have an opening for Respite but to call back on Monday. Plan: SW to follow closely with sister/DPVIDA Mcgarry after her discussion with the pt regarding d/c planning preferences. [facility] currently is full. [facility] on [facility] anticipates an opening for Respite on Monday. [facility] needs 48 hours of RN notes on behaviors and pt needs to determine if they can accept pt for private pay Respite while pt's spouse is currently admitted in ICU. ZEINA Davis
--- NOTE | 2018-06-16 14:48 | OT.IP.EVAL ---
Current Diagnoses Iron deficiency anemia, unspecified (06/14/18) Hypo-osmolality and hyponatremia (06/14/18) Hypokalemia (06/14/18) Unspecified dementia without behavioral disturbance (06/14/18) Major depressive disorder, single episode, unspecified (06/14/18) Chronic kidney disease, stage 3 (moderate) (06/14/18) Other retention of urine (06/14/18) Past Medical History (Last Updated 06/14/18 @ 20:30 by Cristopher Sheriff DO) Hypertension (Acute) Urinary retention (Acute) Occupational Therapy Inpatient Evaluation/Re-Eval M1 PT/OT-IP Prior Functional Status Start: 06/16/18 14:25 Freq: NEEDED Status: Active Protocol: Document 06/16/18 14:25 [facility] (Rec: 06/16/18 14:48 [facility] [id number]) Medical Review Prior Functional Status Medical History Reviewed Yes Prior Functional Level (Other details) Family not present, pt poor historian and not will talk about or aware of her situation. Social History Household Members family Living Arrangements House M2 OT-IP Current Condition Start: 06/16/18 14:25 Freq: Status: Active Protocol: Document 06/16/18 14:25 [facility] (Rec: 06/16/18 14:48 [facility] [id number]) Occupational Therapy Current Condition Current Condition Evaluation Date 06/16/18 Treatment Diagnosis Unspecified mood disorder Diagnosis Onset Date 06/14/18 Weight Bearing Status Weight Bearing Status Weight Bear as Tolerated M3 OT- IP Subjective and Pain Start: 06/16/18 14:25 Freq: Status: Active Protocol: Document 06/16/18 14:25 [facility] (Rec: 06/16/18 14:48 [facility] [id number]) OT- Subjective Occupational Therapy Visit Type Type Initial Evaluation Visit Start Time 12:50 Visit Stop Time 13:05 Total Visit Minutes 15 Occupational Therapy Visit Comments Patient Comments Pt very agitated, having difficulty to follow commands, and decreased memory. OT Pain Assessment Pain When Pain Assessed At Rest Pain Present Pain Present Denied Pain M4 OT- IP ADL's Start: 06/16/18 14:25 Freq: Status: Active Protocol: Document 06/16/18 14:25 [facility] (Rec: 06/16/18 14:48 [facility] [id number]) OT ADL-Dressing General Eval Lower Body Dressing Ability Total Assistance Comments OT Dressing Comments Pt refusing to kylie her socks and wanting therapist to kylie socks for her. OT ADL-Toileting General Evaluation Toileting Ability Standby Assistance Devices Toileting Assistive Devices Commode Comments OT Toileting Comments SBA to transfer without device to BSC, assist for set-up for toilet paper and wipes and able to do her own pericare needs. M6 OT- IP Functional Cognition Start: 06/16/18 14:25 Freq: Status: Active Protocol: Document 06/16/18 14:25 [facility] (Rec: 06/16/18 14:48 [facility] [id number]) Cognitive Factors Limiting Selfcare Function Cognitive Ability Level of Alertness Confusional State Patient Orientation Name Cognitive Comments Cognitive Assessment Comments Pt responds to name however not wanting to partake in therapy and needing encouragement and reminders that she wanted to get up and use the bathroom/BSC. OT- Vision and Hearing OT- Vision Assessment Vision Assessment Comments Pt states lights are too bright for her therefore bathroom light turned off and BSC brought out to pt. M7 OT- IP Mobility and Balance Start: 06/16/18 14:25 Freq: Status: Active Protocol: Document 06/16/18 14:25 [facility] (Rec: 06/16/18 14:48 [facility] [id number]) OT- Bed Mobility Assessment Rolling Type of Rolling Roll to Left Level of Assistance Standby Assistance Supine to Sit Supine to Sit Assist Standby Assistance Sit to Supine Sit to Supine Assist Standby Assistance Scooting Scooting to Edge of Bed Standby Assistance OT-Transfer Assessment Sit to and From Stand Sit to and from Stand Standby Assistance Transfers Transfer Ability Standby Assistance 1 Person Assistance Technique Transfer Destination Bed Bedside Commode Transfer Technique Stand Step Pivot Devices Transfer Assistive Devices None Comments Mobility Comments Pt able to get into and out of the bed with SBA and transfer to and from BSC SBA. OT- Gait Assessment Comments Gait Ability Comments Pt only wanting to get use the BSC and not wanting to do anything else for OT eval. OT- Balance Assessment Sitting Balance and Reactions Static Sitting Balance Ability Normal Dynamic Sitting Balance Ability Normal Standing Balance and Reactions Static Standing Balance Ability Good M8 OT- IP Objective Assessments Start: 06/16/18 14:25 Freq: Status: Active Protocol: Document 06/16/18 14:25 [facility] (Rec: 06/16/18 14:48 [facility] [id number]) OT Gross Range of Motion Upper Extremity Range of Motion ROM Impairments WFL for needs of bed mobility and toileting. OT Sensation Assessment Comments Summary Comments Pt states her hands are cold and bluish in color. M9 OT- IP Assessment and Plan Start: 06/16/18 14:25 Freq: Status: Active Protocol: Document 06/16/18 14:25 [facility] (Rec: 06/16/18 14:48 [facility] [id number]) OT Summary Assessment and Plan Potential Rehabilitation Potential Poor Analytic Complexity at Evaluation Low Summary OT Impairments Balance Coordination Functional Cognition Functional Mobility Self-Feeding Grooming Dressing Toileting Bathing Progress Towards Goals Slow Progress due to Medical Issues Slow Progress due to Activity Tolerance Slow Progress due to Cognition Assessment Summary Pt decreased rehab potential due to confusion, frustrated, and needing lots of encouragement to participate in therapy. Per doctor's note , feel that pt is at her baseline. Pt will need assist at home mainly due to her decreased functional cognition . Therefore discharge pt from OT services.
--- NOTE | 2018-06-16 15:25 | PT.IPTN ---
Current Diagnoses Iron deficiency anemia, unspecified (06/14/18) Hypo-osmolality and hyponatremia (06/14/18) Hypokalemia (06/14/18) Unspecified dementia without behavioral disturbance (06/14/18) Major depressive disorder, single episode, unspecified (06/14/18) Chronic kidney disease, stage 3 (moderate) (06/14/18) Other retention of urine (06/14/18) Physical Therapy Treatment Note M3 PT-IP Subjective Start: 06/16/18 12:03 Freq: NEEDED Status: Active Protocol: Document 06/16/18 15:24 AB (Rec: 06/16/18 15:24 AB [id number]) Subjective Physical Therapy Visit Type Type Patient Refusal Notes checked on pt 3x and pt gets agitated easily and refusing PT.
--- NOTE | 2018-06-16 22:39 | PC.NURSE ---
Evening Shift Note Pt alert and confused, otherwise sleeping. Pt constantly reminded of why she was admitted and stating she is confused. Pt unhappy w/ care from this RN. This RN attempted to ask pt what it is that she needs. 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 Don't you know how to do your job? Are you new at this? I'm paying you all this money for you not to know what to do. Pt also verbally abusive in similar fashion to CLINICAL INFORMATICS MANAGER. Various attempts made to communicate w/ pt in an attempt to fulfill needs, pt refusing care and medication at times. Only cooperative when family is present. Family apologetic of pt's behavior, pt continually expressing to family members of dislike of this RN and cheapness of hospital d/t to lack of flannel blankets and cotton underwear. Also telling family members to please find her a new place to stay and pay any amount necessary. VSS, 98% on RA, no complaints of pain. Up several times to bathroom w/ family, refusing help from this RN. Pt family helped pt back to bed and currently sleeping peacefully. Bed alarm on, pt w/in view from nurses station.
[2018-06-17] VITALS (12 sets, daily range): BP systolic 128–148; BP diastolic 67–79; PULSE 62–93; RESP 16–20; TEMP 36.1–36.6; O2SAT 95–99
--- NOTE | 2018-06-17 01:33 | PC.NURSE ---
Addendum entered by Mariely Arenas R.N. 06/17/18 06:53: Still unable to urinate. Bladder scan indicating 402cc in bladder. Dr Nixon informed of I&O since catheter removed and stated to allow patient more time to urinate. Original Note: Addendum entered by Mariely Arenas R.N. 06/17/18 04:08: Up to bathroom again stating she needs to urinate but unable to void. Bladder scan indicating 382cc. Will continue to monitor. Original Note: Patient has been asleep since start of shift but now awakened and expressing anxiety/fear over not knowing where she is or why she is here. Very pleasant but particular about how cares are provided. Was cooperative with staff maintaining calm environment and constant reassurance. Repetitive in conversation and seems very distressed but can be reassured for brief periods of time. Does know who she is and date and remembers that fell. Complains of humming noise in ears but no hearing difficulty noted. Breath sounds are CTA with RA sat of 98%. HRR. Denies nausea. BT present and abdomen is soft; did get up to bathroom and had very small amounts of formed stool; did not urinate. Denies any pain. Is independent with bed mobility and is assisted to bathroom with walker and 1 assist; fearful of falling but is unsure if she has had any falls. Skin is dry but otherwise intact. Fall risk score is high and bed alarm is activated.
[2018-06-17] MEDS: POTASSIUM CHLORIDE 20 MEQ TAB PO ×2 (09:10→16:43)
[2018-06-17] MEDS: predniSONE 20 MG TABLET PO (09:11)
[2018-06-17] MEDS: QUETIAPINE 25 MG TABLET PO ×2 (09:11→16:44)
[2018-06-17] MEDS: CARVEDILOL 12.5 MG TABLET PO ×2 (09:11→20:18)
[2018-06-17] MEDS: ENOXAPARIN 30 MG/0.3 ML SYRINGE SUBCUT (09:12)
[2018-06-17] MEDS: ESTRADIOL 1 MG TABLET PO (09:13)
--- NOTE | 2018-06-17 10:42 | PM.PN.1 ---
Subjective Date Patient Seen: 06/17/18 Time Patient Seen: 10:43 Interval history: The patient feeling somewhat down this morning. Feeling weak. No pain anywhere that she can state. No headaches. No other complaints. Having difficulty urinating. Did have a bowel movement this morning. Exam Vital Signs (past 8 hours): - 06/17/18 06:35 06/17/18 08:01 06/17/18 08:49 Temperature 97.8 F 97.4 F L Pulse Rate 62 65 Respiratory Rate 20 16 Blood Pressure 148/79 H 146/73 H Pulse Oximetry 99 99 96 Oxygen Delivery Method Room Air Oxygen Flow Rate 0 Narrative Exam Narrative: Alert elderly female no acute distress HEENT exam is unremarkable. Neck is supple without adenopathy. Lungs are clear. Heart regular rate and rhythm. Abdomen is soft positive bowel sounds nontender. She is alert seems to be oriented to me and place. Nonfocal neurologic exam. Objective Labs Result Diagrams: 06/16/18 05:33 06/16/18 05:33 Assessment & Plan Plan: Assessment/Plan Narrative: Urinary retention. I am hoping we do not have to put the catheter back and I am not sure why this is developing. Does not appear to be infection. Medications have not changed but at this point was placed catheter and will need to be on a catheter until Urology sees since we do not have that access here. We will see what happens over the next 2 hr. If not will placed. Patient understands. Hyponatremia. New. Patient has not been drinking a lot of fluid. May be related to her mental disease. We will see how things go. I do not think we have to restrict her fluids but will re-evaluate in a.m.. Will check other metabolic panels at that time. I do not think her renal disease is active at this time. Mood disorder. Overall stable. Major issue in her care. Will follow. Weakness. I think this is a combination of issues. I think a lot of this has to do with her being less mobile. No other changes. Will follow up in a.m.. PT OT consult. DVT prophylaxis. On treatment. Disposition. PT OT evaluation. We will see what her sodium does. Re-evaluate in a.m.. Discussed with social service clearly will have to find placement. At this point I am not sure she is safe will see how PT and OT evaluate her. She understands questions answered Quality VTE Deep Vein Thrombosis/Pulmonary Embolism Present on Admission: No
--- NOTE | 2018-06-17 11:18 | PC.NURSE ---
Day shift: Morning has been good with Pt. Anxiety still present as well as repeating the same question many times (I don't know what is going on and why am I here). Pt does respond well to reorientation to her current situation. She can ambulate using the FWW to the BR. She is also able to feed herself. She is confused and would not be safe to be home alone. Bladder scanned at approx 1100 and 585ml present. Per Dr Nixon he wants to wait as long as possible to place a Arteaga. Pt denies any bladder discomfort and no distention present. Pt did have a medium and well formed BM this AM as well. Plan for lunch is to take her to ICU to visit w/ her spouse. Most of her anxiety has been r/t him as well as her current situation. Family in room as this is written. Call light in reach. Pt aware of todays plan and she took all her AM meds as well as the Lovenox injection.
--- NOTE | 2018-06-17 12:12 | PC.NURSE ---
Day shift: Pt going to ICU now (1212) to have lunch w/ her spouse followed by approx 6 family members. HEATHER Pollack is pushing Pt in WC. Pt has sweatshirt and sweatpants on and appears to be comfortable but still has increased anxiety. She will likely be down there for 30 minutes.
--- NOTE | 2018-06-17 12:25 | PT.IIE ---
Current Diagnoses Iron deficiency anemia, unspecified (06/14/18) Hypo-osmolality and hyponatremia (06/14/18) Hypokalemia (06/14/18) Unspecified dementia without behavioral disturbance (06/14/18) Major depressive disorder, single episode, unspecified (06/14/18) Chronic kidney disease, stage 3 (moderate) (06/14/18) Other retention of urine (06/14/18) Medical History (Last Updated 06/14/18 @ 20:30 by Cristopher Sheriff DO) Hypertension (Acute) Urinary retention (Acute) Physical Therapy Inpatient Evaluation/Re-Eval M1 PT/OT-IP Prior Functional Status Start: 06/16/18 12:03 Freq: NEEDED Status: Active Protocol: Document 06/17/18 12:25 [facility] (Rec: 06/17/18 15:36 [facility] [id number]) Medical Review Prior Functional Status Medical History Reviewed Yes Mobility and Gait Pt does not note what her prior level of mobility is. Social History Household Members family Living Arrangements House Number of Floors (Floors) Two Floors Number of Stairs To Enter/Railing? 2 SE without rail; 15 steps to get to 2nd level (per spouse' s PT note) L rail ascending Home Environment Walk in Shower Built-In Shower Seat Home Equipment Straight Cane Grab Bars In Shower Employment Status Retired Additional Social History Comment pt's spouse is also currently admitted @ [facility], planning for him to d/c back to [facility]. M1 PT/OT-IP Prior Functional Status Start: 06/16/18 14:25 Freq: NEEDED Status: Active Protocol: Document 06/16/18 14:25 [facility] (Rec: 06/16/18 14:48 [facility] [id number]) Medical Review Prior Functional Status Medical History Reviewed Yes Prior Functional Level (Other details) Family not present, pt poor historian and not will to talk or aware of her sitiuation. Social History Household Members family Living Arrangements House M2 PT-IP Current Condition Start: 06/16/18 12:03 Freq: NEEDED Status: Active Protocol: Document 06/17/18 12:25 RCC (Rec: 06/17/18 15:36 RCC [id number]) Physical Therapy Current Condition Current Condition Evaluation Date 06/17/18 Treatment Diagnosis distressed, impaired activity tolerance, hyponatremia, urinary retention Onset Date 06/14/18 Weight Bearing Status Weight Bearing Status Weight Bear as Tolerated M3 PT-IP Subjective Start: 06/16/18 12:03 Freq: NEEDED Status: Active Protocol: Document 06/17/18 12:25 RCC (Rec: 06/17/18 15:36 [facility] [id number]) Subjective Physical Therapy Visit Type Type Initial Evaluation Visit Start Time 12:14 Visit Stop Time 12:25 Total Visit Minutes 11 Notes Pt on BSC with CNAs prior to ambulation. Number of MOLD YARD SUPERVISOR Visits 0 Physical Therapy Visit Comments Patient Comments pt states I have no idea what 's going on right now, I want to see my . Short Term Goals to see her M4 PT-IP Mobility and Gait Start: 06/16/18 12:03 Freq: NEEDED Status: Active Protocol: Document 06/17/18 12:25 RCC (Rec: 06/17/18 15:36 [facility] [id number]) PT-Transfer Assessment Sit to and From Stand Sit to and from Stand Contact Guard Assistance Equipment Transfer Assistive Device Gait Belt Front Wheeled Walker Transfers Transfer Destination Wheelchair Transfer Technique Stand Step Pivot Transfer Ability Level of Assist Contact Guard Assistance Gait Assessment Gait Gait Assistance Required: Standby Assistance Distance (Feet) (feet) 10 Assistive Devices Assistive Device Gait Belt Front Wheeled Walker Gait Deviations General Gait Pattern Ataxic Decreased Stride Length Decreased Feet Clearance Factors Limiting Gait Function Factors Limiting Gait Function Decreased Activity Tolerance Decreased Strength Difficulty Following Directions Poor Balance Poor Safety Awareness Comments Gait Comments pt initially turned L vs R when cued verbally, focused on going to see her and increased coaxing required to get pt to ambulate to w/c. She demonstrates unsteady gait using a FWW, requires constant cuing with mobility. PT-Balance Assessment Sitting Balance and Reactions Static Sitting Balance Ability Good Dynamic Sitting Balance Ability Fair Standing Balance and Reactions Static Standing Balance Ability Fair Dynamic Standing Balance Ability Poor Device Used FWW M5 PT-IP Objective Assessments Start: 06/16/18 12:03 Freq: NEEDED Status: Active Protocol: Document 06/17/18 12:25 RCC (Rec: 06/17/18 15:36 [facility] [id number]) Orientation Orientation/Cognition Level of Alertness Confusional State Orientation Name Safety Awareness Decreased Safety Awareness Strength Comments Strength Comments not able to be assessed. M6 PT-IP Treatment Start: 06/16/18 12:03 Freq: NEEDED Status: Active Protocol: Document 06/17/18 12:25 RCC (Rec: 06/17/18 15:36 [facility] [id number]) Physical Therapy Treatment Education Education Provided Safety M7 PT-IP Assessment and Plan Start: 06/16/18 12:03 Freq: NEEDED Status: Active Protocol: Document 06/17/18 12:25 RCC (Rec: 06/17/18 15:36 [facility] [id number]) PT Summary Assessment and Plan Potential Rehabilitation Potential Fair Status of Condition at Evaluation Evolving Summary Impairments Strength Balance Cognition Transfers Gait Activity Tolerance Assessment Summary Pt willing to ambulate a short distance to the w/c to be transported for lunch with her in his ICU room. Otherwise, pt not motivated at this time to mobilize further . She is not safe to be out of bed without close guarding, and demonstrates unsteady gait using a FWW. Her is typically her care-licensed home inspector, but given his current state, he will not be able to provide assistance. Pt wants to d/c to where her is d/c to, and the burden of care of this pt, according to ER documentation, was too high for them to handle safely at home. Goals Bed Mobility Goal Standby Assistance Transfer Goal Standby Assistance Gait Goal Standby Assistance Front Wheel Walker Gait Distance 150 Other Goals up/down 2 steps without rail and CGA Days to Meet Goals 3 Frequency of Treatment Frequency Of Treatment Once a Day Treatment Plan Physical Therapy Treatment Plan Bed Mobility Training Transfer Training Gait Training Therapeutic Exercise Balance Retraining Discharge Planning Neuromuscular Re-ed Recommendations To Nursing Amount of Assist Needed 1 Person Assist Discharge Recommendations PT Discharge Recommendations Home with 24/7 Assist SNF Rehab Other Discharge Recommendations pt will require 24/7 assistance
--- NOTE | 2018-06-17 12:43 | PC.NURSE ---
Day shift: Pt back on unit at approx 1240 from PACU under the care of HEATHER Pollack. Pt still attempting to void. Has had multiple well formed BM's. Per MD Arteaga to be placed. Will check if MD ordered Arteaga placement.
--- NOTE | 2018-06-17 13:39 | PC.NURSE ---
Day shift: Arteaga placed by Flori GARCIA at approx 1330. She reported badder prolapse out of the vagina. She tucked it back in. Junaid SZYMANSKI as this is written.
--- NOTE | 2018-06-17 13:56 | PC.NURSE ---
Day shift: Called Dr Nixon's phone and left message about Arteaga placement ant the 2 inch prolapse out of vagina at 1400. Left call back number w/ any questions. Answering service did not answer and on hold for over 10 minutes 3 times.
--- NOTE | 2018-06-17 14:06 | PC.NURSE ---
Pt tollerated catheter placement well. Pt's bladder was protruding from her interior vagina wall approx. 2 inches outside of vagina. Bladder was gently tucked back up inside the vagina after catheter placement.
--- NOTE | 2018-06-17 14:54 | CM.DPC ---
DCP/continued: Reviewed chart. Per UR/RN patient changed to inpatient status today by Dr. Nixon. Met briefly with patient to explain role and updated white board. Patient appeared slightly agitated at time of LEVEL VIAL INSIDE GRINDER visit. Notified patient of her current status. Patient reports that she is not interested in discussing d/c planning at this time. However, does mention that she would like to go where her spouse goes. Current plan for spouse is to return to [facility] when medically stable if bed available. LEVEL VIAL INSIDE GRINDER left vm with admit at [facility] requesting that they review both patient and spouse records. P: Pending. Patient confirms that she would like to go to [facility] if spouse returns there however, unwilling to discuss additional options. ZEINA Parry
--- NOTE | 2018-06-17 17:15 | PC.NURSE ---
Addendum entered by Leanne Bautista R.N. 06/17/18 17:22: Pt resting peacefully in bed after dinner. Bed alarm on. W/in direct view of nurses station. Original Note: Evening Shift Note Pt alert, confused/forgetful of current situation, easily redirected/comforted. Pt very pleasant this shift in contrast to yesterday. Very appreciative of care and attention stating you guys take good care of me. Frequently apologizing for forgetfulness and current state. Pt reassured, easily comforted w/ company from this RN and ACCIDENT REPORT CLERK. Seroquel given x1 for increased anxiety, has not slept today. VSS, 98% on RA. No complaints of pain. Pt w/ good appetite, drank 2 ensures and a vanilla pudding. Currently being fed dinner by ACCIDENT REPORT CLERK. Arteaga patent and draining clear ortiz urine. Skin intact, mesh brief on.
[2018-06-17] MEDS: QUETIAPINE 100 MG TABLET PO (20:19)
[2018-06-18] VITALS (7 sets, daily range): BP systolic 140–175; BP diastolic 61–79; PULSE 66–77; RESP 16–18; TEMP 36.3–36.8; O2SAT 95–100
--- NOTE | 2018-06-18 00:11 | PC.NURSE ---
NOC shift pt is calm and resting in bed; bed alarm on. Patient cooperative to care, but fixated on and how he is doing. Patient kept asking about and how he is doing in between answering my questions. Reassured patient that we will get an update for her. Denying pain. Arteaga draining to gravity. Alert and oriented to self, situation, and month.
[2018-06-18 05:40] LABS: Alanine Aminotransferase 22 IU/L (9-52); Albumin 3.4 g/dL (3.5-5.0); Albumin Globulin Ratio 1.3 (1.0-2.8); Alkaline Phosphatase 63 U/L (38-126); Aspartate Aminotransferase 17 IU/L (14-36); BUN Creatinine Ratio 32.1 (6-22); Bilirubin Total 0.2 mg/dL (0.2-1.3); Blood Urea Nitrogen 45 mg/dL (7-17); Calcium 9.4 mg/dL (8.4-10.2); Carbon Dioxide 27 mmol/L (22-32); Chloride 99 mmol/L (98-107); Estimated Glomerular Filt Rate 36.1 mL/min (>60); Globulin 2.7 g/dL (1.7-4.1); Glucose 102 mg/dL (80-110); HEMOLYSIS < 15 (0-50); Potassium 4.7 mmol/L (3.4-5.1); Sodium 130 mmol/L (137-145); Total Protein 6.1 g/dL (6.3-8.2)
--- NOTE | 2018-06-18 08:37 | PM.PN.1 ---
Subjective Date Patient Seen: 06/18/18 Time Patient Seen: 08:37 Interval history: Patient actually feeling a little better this morning. Little more relaxed. No other significant changes. No pain. Less confused this morning. Had catheter placed. Definitely had prolapse on placement. Exam Vital Signs (past 8 hours): Oxygen Delivery Method Room Air Oxygen Flow Rate 0 Narrative Exam Narrative: Alert female in no acute distress Lungs are clear. Heart regular rate and rhythm. Abdomen is soft positive bowel sounds nontender. Extremities are normal. Neurologic exam is nonfocal. Objective Labs Result Diagrams: 06/16/18 05:33 06/18/18 05:14 Labs: Laboratory Results - last 24 hr 06/18/18 05:14 Sodium 130 L Potassium 4.7 Chloride 99 Carbon Dioxide 27 BUN 45 H Creatinine 1.40 H Estimated GFR 36.1 L BUN/Creatinine Ratio 32.1 H Glucose 102 Calcium 9.4 Total Bilirubin 0.2 AST 17 ALT 22 Alkaline Phosphatase 63 Total Protein 6.1 L Albumin 3.4 L Globulin 2.7 Albumin/Globulin Ratio 1.3 Assessment & Plan Plan: Assessment/Plan Narrative: Hyponatremia. Actually improved today. Will hold any type of fluid restrictions and re-evaluate in a.m. to make sure stable. Urinary retention. Possibly secondary to uterine prolapse. Consult Dr. Loredo. Discussed with her. Continue Arteaga for now. May be pessary. Mood disorder. Overall stable. Appreciate Dr. Chen input. Weakness. Continue physical and occupational therapy. DVT prophylaxis. Stable. On treatment. Disposition. Hopefully will have placed in the next 24-48 hours depending on how things go. Re-evaluate in a.m.. Discussed with social service for Quality VTE Deep Vein Thrombosis/Pulmonary Embolism Present on Admission: No
[2018-06-18] MEDS: ESTRADIOL 1 MG TABLET PO (09:12)
[2018-06-18] MEDS: POTASSIUM CHLORIDE 20 MEQ TAB PO ×2 (09:12→17:19)
[2018-06-18] MEDS: CARVEDILOL 12.5 MG TABLET PO ×2 (09:12→20:23)
[2018-06-18] MEDS: ENOXAPARIN 30 MG/0.3 ML SYRINGE SUBCUT (09:12)
[2018-06-18] MEDS: QUETIAPINE 25 MG TABLET PO ×2 (09:12→20:23)
[2018-06-18] MEDS: predniSONE 20 MG TABLET PO (09:13)
--- NOTE | 2018-06-18 09:20 | PT.IPTN ---
Current Diagnoses Iron deficiency anemia, unspecified (06/17/18) Hypo-osmolality and hyponatremia (06/17/18) Hypokalemia (06/17/18) Unspecified dementia without behavioral disturbance (06/17/18) Major depressive disorder, single episode, unspecified (06/17/18) Chronic kidney disease, stage 3 (moderate) (06/17/18) Other retention of urine (06/17/18) Altered mental status, unspecified (06/17/18) Physical Therapy Treatment Note M2 PT-IP Current Condition Start: 06/16/18 12:03 Freq: NEEDED Status: Active Protocol: Document 06/18/18 09:40 TMS (Rec: 06/18/18 11:03 TMS [id number]) Physical Therapy Current Condition Current Condition Evaluation Date 06/17/18 Treatment Diagnosis distressed, impaired activity tolerance, hyponatremia, urinary retention Onset Date 06/14/18 Weight Bearing Status Weight Bearing Status Weight Bear as Tolerated M3 PT-IP Subjective Start: 06/16/18 12:03 Freq: NEEDED Status: Active Protocol: Document 06/18/18 09:40 TMS (Rec: 06/18/18 11:03 TMS [id number]) Subjective Physical Therapy Visit Type Type Treatment Note Visit Start Time 09:20 Visit Stop Time 09:40 Total Visit Minutes 20 Number of KENNEL ASSISTANT Visits 1 Physical Therapy Visit Comments Patient Comments Pt. sitting on EOB with RN present, needs to go to B.R. M4 PT-IP Mobility and Gait Start: 06/16/18 12:03 Freq: NEEDED Status: Active Protocol: Document 06/18/18 09:40 TMS (Rec: 06/18/18 11:03 TMS [id number]) PT-Transfer Assessment Sit to and From Stand Sit to and from Stand Contact Guard Assistance Equipment Transfer Assistive Device Gait Belt Front Wheeled Walker Transfers Transfer Destination Toilet Transfer Ability Level of Assist Contact Guard Assistance Minimal Assistance Gait Assessment Gait Gait Assistance Required: Contact Guard Assist Distance (Feet) (feet) 20 Assistive Devices Assistive Device Gait Belt Front Wheeled Walker Gait Deviations General Gait Pattern Ataxic Decreased Stride Length Decreased Feet Clearance Factors Limiting Gait Function Factors Limiting Gait Function Decreased Activity Tolerance Decreased Strength Difficulty Following Directions Poor Balance Poor Safety Awareness Comments Gait Comments Pt. needs cues and min-A to help steer walker with toilet and sink approach M5 PT-IP Objective Assessments Start: 06/16/18 12:03 Freq: NEEDED Status: Active Protocol: Document 06/17/18 12:25 RCC (Rec: 06/17/18 15:36 RCC [id number]) Orientation Orientation/Cognition Level of Alertness Confusional State Orientation Name Safety Awareness Decreased Safety Awareness Strength Comments Strength Comments not able to be assessed. M6 PT-IP Treatment Start: 06/16/18 12:03 Freq: NEEDED Status: Active Protocol: Document 06/17/18 12:25 RCC (Rec: 06/17/18 15:36 RCC [id number]) Physical Therapy Treatment Education Education Provided Safety M7 PT-IP Assessment and Plan Start: 06/16/18 12:03 Freq: NEEDED Status: Active Protocol: Document 06/18/18 09:40 TMS (Rec: 06/18/18 11:03 TMS [id number]) PT Summary Assessment and Plan Summary Assessment Summary Pt. very anxious, slighly unsteady with gait with many cues needed for turns and sink /toilet approach. Not willing to walk further secondary to anxiety. Frequency of Treatment Frequency Of Treatment Once a Day Treatment Plan Physical Therapy Treatment Plan Bed Mobility Training Transfer Training Gait Training Therapeutic Exercise Balance Retraining Discharge Planning Neuromuscular Re-ed Recommendations To Nursing Amount of Assist Needed 1 Person Assist Discharge Recommendations PT Discharge Recommendations SNF Rehab
--- NOTE | 2018-06-18 10:58 | PC.NURSE ---
Day shift: Pt more oriented to situation this AM. Understands and knows her is sick and downstairs in ICU. HAs small BM this AM. Arteaga output good. Eating well. Does still have anxiety but better than previous days. HAs been appreciative of care. Pt's spouse was brought up by ICU PASSENGER FLAGMAN this morning for a visit at approx 1015. No reports of any drama.
--- NOTE | 2018-06-18 15:06 | CM.DPNOTE ---
DCP/continued: Reviewed chart. Spoke with Dr. Nixon this AM re: d/c planning. PT/OT evaluating for potential needs. DINKEY DISPATCHER had brief discussion with patient on 06-17-18 during that visit patient agreeable to have [facility] evaluate. Patient reports that she would like to go where my spouse is going. Patient currently patient at [facility] and came from [facility]. DINKEY DISPATCHER placed call to Nadia at [facility] this AM she will evaluate both patient and spouse today. Nadia inquiring about medication for anxiety. Notified Nadia that DINKEY DISPATCHER would discuss with Dr. Nixon in AM. P: Pending. [facility] reviewing for admit. ZEINA Parry
[2018-06-18] MEDS: QUETIAPINE 100 MG TABLET PO (20:23)
[2018-06-19] VITALS (8 sets, daily range): BP systolic 149–154; BP diastolic 49–82; PULSE 66–75; RESP 16–18; TEMP 36.2–36.6; O2SAT 96–100; BMI 19.8
--- NOTE | 2018-06-19 07:42 | PC.NURSE ---
Day shift: Talked with Dr Loredo and she wants Pt to go to [facility] to have procedure done. Discussed w/ MULTIPLE WIRE SAWYER and charge out clerk. More to follow.
--- NOTE | 2018-06-19 08:16 | PC.NURSE ---
Day shift: Pt A&Ox3 this AM. She presents with mild anxiety but much improved from 3 days prior. She is eating and drinking. SBA to BR. Arteaga output good. Denies pain. Not impulsive. VS stable. RA 97%. Report of some skin breakdown coccyx and rt glute. Will inspect when Pt up to BSC. Call light in reach. Keeping her high fall risk. Bed alarm on. She likes her door open so it is. She is also sensitive to the lights.
--- NOTE | 2018-06-19 08:18 | PM.PN.1 ---
Subjective Date Patient Seen: 06/19/18 Time Patient Seen: 08:18 Interval history: Overall patient doing well this morning. Sleepy. No complaints of pain. Dr. Loredo tried to see her yesterday but patient was sleeping. No other changes. Exam Vital Signs (past 8 hours): - 06/19/18 00:32 06/19/18 01:00 06/19/18 08:08 Temperature 97.7 F Pulse Rate 66 Respiratory Rate 16 Blood Pressure 149/49 H Pulse Oximetry 99 98 96 Oxygen Delivery Method Room Air Oxygen Flow Rate 0 Narrative Exam Narrative: Alert smiling female no acute distress. Mucous membranes moist. Neck is supple without adenopathy. Lungs are clear. Heart regular rate and rhythm. Abdomen is soft positive bowel sounds nontender. Extremities without cyanosis clubbing edema. Objective Labs Result Diagrams: 06/16/18 05:33 06/18/18 05:14 Assessment & Plan Plan: Assessment/Plan Narrative: Hyponatremia. Actually seems to be doing well. I think we are okay. Will continue on current medicine make no changes in treatment and follow-up in a.m.. I suspect no further treatment will be needed but will see how things go. With her renal disease will have to follow. Urinary retention. Appreciate Dr. Loredo help. Discussed with her she will be taken to her office so she can get her into the full lithotomy position and make exam he is here. Hopefully pessary will be placed today. Otherwise seems to be doing well. Mood disorder. Discussed with Dr. Chen. Appreciate her input. Question will be whether we can add a benzodiazepine for transfer. Also needs EKG for QT interval evaluation. Weakness. Continue physical therapy and occupational therapy. Multifactorial. Do not feel stroke or other issue is present. May have been related to her hyponatremia will see how she does. DVT prophylaxis on treatment. Disposition. Hopefully discharge tomorrow. Quality VTE Deep Vein Thrombosis/Pulmonary Embolism Present on Admission: No
--- NOTE | 2018-06-19 09:06 | PC.NURSE ---
Day shift: Per discussion with charge attendant Pt's can't leave the unit and go to the [facility].
--- NOTE | 2018-06-19 09:15 | PC.NURSE ---
Day shift: proof carrier talked with Angie and the plan is back to the original. Pt will go to Dr Palacios at 1345 today.
--- NOTE | 2018-06-19 09:25 | OT.IP.TRT ---
Current Diagnoses Iron deficiency anemia, unspecified (06/17/18) Hypo-osmolality and hyponatremia (06/17/18) Hypokalemia (06/17/18) Unspecified dementia without behavioral disturbance (06/17/18) Unspecified psychosis not due to a substance or known physiological condition (06/17/18) Major depressive disorder, single episode, unspecified (06/17/18) Unspecified mood [affective] disorder (06/17/18) Chronic kidney disease, stage 3 (moderate) (06/17/18) Other retention of urine (06/17/18) Altered mental status, unspecified (06/17/18) Occupational Therapy Treatment Note M2 OT-IP Current Condition Start: 06/16/18 14:25 Freq: Status: Active Protocol: Document 06/16/18 14:25 CCC (Rec: 06/16/18 14:48 [facility] [id number]) Occupational Therapy Current Condition Current Condition Evaluation Date 06/16/18 Treatment Diagnosis Unspecified mood disorder Diagnosis Onset Date 06/14/18 Weight Bearing Status Weight Bearing Status Weight Bear as Tolerated M3 OT- IP Subjective and Pain Start: 06/16/18 14:25 Freq: Status: Active Protocol: Document 06/19/18 13:31 PJM (Rec: 06/19/18 13:47 PJM [id number]) OT- Subjective Occupational Therapy Visit Type Type Treatment Note Visit Start Time 08:40 Visit Stop Time 09:25 Total Visit Minutes 45 Notes OUTSIDE SALES MANAGER requested OT recheck pt's self care status today. Occupational Therapy Visit Comments Patient Comments I don't see why I have to do all this. You are bothering me . Patient/Caregiver Goals to go to sleep OT Pain Assessment Pain When Pain Assessed After Treatment Pain Present Pain Present Denied Pain M4 OT- IP ADL's Start: 06/16/18 14:25 Freq: Status: Active Protocol: Document 06/19/18 13:31 PJM (Rec: 06/19/18 13:47 PJM [id number]) OT YDY-Njau-Hzedyjt General Evaluation Self-Feeding Ability Independent OT ADL-Grooming General Evaluation Grooming Ability Standby Assistance OT ADL-Oral Care General Eval Oral Care Ability Standby Assistance Comments Oral Care Comments Pt did not get any toothpaste on brush, and declined assistance with applying it resulting in decreased thoroughness for task. OT ADL-Dressing General Eval Upper Body Dressing Ability Standby Assistance Areas Needing Assistance Shoes Comments OT Dressing Comments Pt SBA to don slip on shoes; pt declined other dressing tasks this session. OT ADL-Toileting Comments OT Toileting Comments Pt has gandara in place. OT ADL-Bathing Comments OT Bathing Comments Pt declined shower. M6 OT- IP Functional Cognition Start: 06/16/18 14:25 Freq: Status: Active Protocol: Document 06/19/18 13:31 PJM (Rec: 06/19/18 13:47 PJ [id number]) Cognitive Factors Limiting Selfcare Function Cognitive Ability Level of Alertness Alert Patient Orientation Name Place Attention Span Ability Capable of Focused Attention Ability to Follow Commands Able to Follow One Step Commands Memory Description Short Term Impaired Problem Solving Ability Unable to Identify Errors Executive Function Ability Unable to Remember Details Cognitive Comments Cognitive Assessment Comments Pt irritable with conversation /questions from therapist and mildly argumentative. Illogical thought processes. Pt able to sequence basic self care but with decreased attention to detail resulting in decreased thoroughness. OT- Vision and Hearing OT- Hearing Assessment OT- Hearing Assessment WFL M7 OT- IP Mobility and Balance Start: 06/16/18 14:25 Freq: Status: Active Protocol: Document 06/19/18 13:31 PJM (Rec: 06/19/18 13:47 PJ [id number]) OT- Bed Mobility Assessment Rolling Level of Assistance Standby Assistance Sit to Supine Sit to Supine Assist Standby Assistance OT-Transfer Assessment Sit to and From Stand Sit to and from Stand Standby Assistance Transfers Transfer Ability Standby Assistance Technique Transfer Destination Bed Devices Transfer Assistive Devices Front Wheeled Walker Comments Mobility Comments Pt declined gait belt and any CGA from therapist. No loss of balance noted. OT- Gait Assessment Gait Gait Assistance Required: Standby Assistance Distance (Feet) (feet) 15 Assistive Devices Assistive Device Front Wheeled Walker Comments Gait Ability Comments Pt declined gait belt and any CGA from therapist. No loss of balance noted. Pt tends to leave FWW behind and states I don't use this thing at home . OT- Balance Assessment Sitting Balance and Reactions Static Sitting Balance Ability Good Standing Balance and Reactions Static Standing Balance Ability Good M9 OT- IP Assessment and Plan Start: 06/16/18 14:25 Freq: Status: Active Protocol: Document 06/19/18 13:31 PJM (Rec: 06/19/18 13:47 PJ [id number]) OT Summary Assessment and Plan Summary OT Impairments Functional Cognition Assessment Summary Pt seen again by OT today at OUTSIDE SALES MANAGER request. Pt SBA with functional mobility and grooming standing at sink. Pt difficult to engage in self care tasks with irritability noted, but no new sensorimotor deficits identified that would interfere with basic self care. Pt's major deficit appears to decreased functional cognition with history of dementia noted. Suspect pt's performance today may be close to her baseline. , who is currently an in pt here as well, is no longer able to care for pt. Pt currently needs 24 hr assist for safety, intermittent cuing for all self care tasks and assist with all IADL's due to cognitive deficits. No further OT goals identified for this admission. D/C OT. Treatment Plan Other Treatment Recommendations and Next D/C OT Treatment Focus Discharge Recommendations Other Discharge Recommendations Pt currently needs 24 hr assist for safety, intermittent cuing for all self care tasks and assist with all IADL's due to cognitive deficits
[2018-06-19 09:41] LABS: Blood Urea Nitrogen 39 mg/dL (7-17); Calcium 9.8 mg/dL (8.4-10.2); Carbon Dioxide 27 mmol/L (22-32); Chloride 98 mmol/L (98-107); Estimated Glomerular Filt Rate 39.3 mL/min (>60); Glucose 85 mg/dL (80-110); HEMOLYSIS < 15 (0-50); Potassium 4.1 mmol/L (3.4-5.1); Sodium 131 mmol/L (137-145)
[2018-06-19] MEDS: CARVEDILOL 12.5 MG TABLET PO ×2 (09:45→21:39)
[2018-06-19] MEDS: POTASSIUM CHLORIDE 20 MEQ TAB PO ×2 (09:45→21:39)
[2018-06-19] MEDS: ENOXAPARIN 30 MG/0.3 ML SYRINGE SUBCUT (09:45)
[2018-06-19] MEDS: predniSONE 20 MG TABLET PO (09:46)
[2018-06-19] MEDS: ESTRADIOL 1 MG TABLET PO (09:46)
[2018-06-19] MEDS: QUETIAPINE 25 MG TABLET PO (09:46)
--- NOTE | 2018-06-19 11:03 | PM.CN ---
History of Present Illness Chief complaint: sister states she is very distressed Requesting provider: Hugo Nixon Narrative: UPDATED HOSPITAL COURSE: -Ongoing urinary retention, new hyponatremia (consuming a lot of fluids) -quetiapine: receiving HS dosing, also receiving 25mg BID scheduled instead of prn (1 dose 13:29 06/16, 2 doses 06/17 -I have not been able to locate EKG INTERVIEW: Silvina Cruz has her niece Nicole present at bedside, would like her to stay for out interview. She reports being happy to see this internal communications writer. She reports feeling ok today, nothing specific bothering her, wishing she could spend more time with her . She also wonders when she can go home. She denies feeling scared or frightened in the hospital. She reports some anxiety, but not severe, and I reflected that she seems much less anxious compared to our clinic visits. She reports feeling more tired during the day than is typical for her. She easily recognizes this provider and easily identifies me as Dr. Chen. STAFF REPORT: Significant improvement in mental status over the last several days, fully oriented today to the exam, not seeming to need as needed dosing for a severe anxiety or agitation PFSH Medical History Hypertension (Acute) Urinary retention (Acute) Social History household members: family Smoking Status: Never smoker Meds Home Medications Medication Instructions Recorded Confirmed Type estradiol 1 mg PO QDAY #0 02/01/04 06/14/18 History carvedilol [Coreg] 12.5 mg PO BID #0 11/12/16 06/14/18 History magnesium 200 mg PO QDAY #30 tab 03/26/17 06/14/18 Rx prednisone 20 mg PO DAILY #0 05/03/17 06/14/18 History sodium bicarbonate 650 mg PO BID #0 05/03/17 06/14/18 History acyclovir 800 mg PO 5XD #0 09/19/17 06/14/18 History potassium chloride [Klor-Con M20] 20 meq PO BIDCC #0 09/19/17 06/14/18 History quetiapine 100 mg tablet 100 mg PO HS 30 Days #30 tab 04/10/18 06/14/18 Rx citalopram 20 mg tablet 20 mg PO DAILY 06/11/18 06/14/18 History clotrimazole-betamethasone 1 1 applic TOP BID 10 Days #30 gram 06/11/18 06/14/18 History %-0.05 % topical cream [id number]-bav-QW-lycopen-lutein 1 tab PO DAILY 06/14/18 06/14/18 History [Centrum Silver] Allergies Allergy/AdvReac Type Severity Reaction Status Date / Time ascorbic acid Allergy Unknown Verified 06/14/18 11:44 aspirin [ASPIRIN] Allergy Unknown CHILDHOOD Verified 06/14/18 11:44 RX. Review of Systems Constitutional Constitutional: Denies anorexia and Reports fatigue Eyes Eyes: Denies change in vision ENT Ears, Nose, Mouth, and Throat: No abnormal hearing Cardiovascular Cardiovascular: Denies chest pain Respiratory Respiratory: Denies cough Gastrointestinal Gastrointestinal: Denies abdominal pain Genitourinary Genitourinary: Reports difficulty voiding and Reports prolapse symptoms Musculoskeletal Musculoskeletal: Reports numbness (in feet, they fell asleep) Neurologic Neurologic: Denies abnormal hearing and Reports numbness (in feet, they fell asleep) Psychiatric Psychiatric: Reports as per HPI Endocrine Endocrine: Reports fatigue Exam Vital Signs (past 8 hours): - 06/19/18 08:00 06/19/18 08:08 Temperature 98 F Pulse Rate 75 Respiratory Rate 18 Blood Pressure 154/75 H Pulse Oximetry 100 96 Oxygen Delivery Method Room Air Oxygen Flow Rate 0 Narrative Exam Narrative: MENTAL STATUS EXAM: Appearance: Petite female with thinning white hair, covered with blanket Behavior: Calm, good eye contact, no psychomotor agitation or slowing, no overt tremor observed Gait: Not observed today Speech: normal volume & rate, easily interruptible Mood: ? ok ? Affect: euthymic, congruent, mildly irritable at times, normal range and reactivity Thought Process: linear, perseverative, goal-oriented Thought Content: Denies SI, no evidence of HI, no clear evidence of hallucinations, no evidence of paranoia today Attention: Distractible Orientation: grossly oriented to place, person, date, situation Memory: Some impairment, not formally tested Insight: Fair to Limited Judgment: fair to limited EKG completed, sinus rhythm with rate 69, QT 367, QTc 386 Objective Labs Result Diagrams: 06/16/18 05:33 06/19/18 08:25 Labs: Laboratory Results - last 24 hr 06/19/18 08:25 Sodium 131 L Potassium 4.1 Chloride 98 Carbon Dioxide 27 BUN 39 H Creatinine 1.30 H Estimated GFR 39.3 L BUN/Creatinine Ratio 30.0 H Glucose 85 Calcium 9.8 Assessment & Plan (1) Acute alteration in mental status: Current visit: Yes Status: Acute (2) Unspecified mood [affective] disorder: Current visit: No Status: Acute (3) Unspecified psychosis not due to a substance or known physiological condition: Current visit: No Status: Acute Plan: Assessment/Plan Narrative: ASSESSMENT: Silvina Pavon is an 83-year-old female, , with autoimmune renal disease, anemia, and hypergammaglobulinemia; known to me from outpatient clinic where I follow her for symptoms of mood and paranoia including episode in July likely precipitated by ongoing corticosteroid treatment. Quetiapine has been quite effective for her, with significant improvement in manic and paranoid symptoms, and we have maintained her on this medication at 100 mg dose each night. Patient appears to be stable from a psychiatric perspective, even better than her baseline in recent clinic visits. QTC is not elevated, which is reassuring given quetiapine. She is receiving schedule daytime doses of quetiapine rather than as needed, and I would like to switch this to as needed only for severe anxiety or agitation, both in the hospital and upon discharge. Given her history, I would be hesitant to use benzodiazepines in any kind of regular fashion with the potential to precipitate delirium and worsen her overall mental status. 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 Nixon. She should have existing follow-up visit with me scheduled. - Thank you for involving me in this patient's care, I will continue to check in as I am available while patient is in the hospital, and please contact me urgently for any worsening symptoms.
--- NOTE | 2018-06-19 11:21 | PC.NURSE ---
Day shift: Talked to Dr Chen this Am and she is going to stop the 25mg Seraquil morning dose. She will let Dr Nixon know. She also asked about the EKG results and those were read to her by this ghost writer.
--- NOTE | 2018-06-19 12:45 | PC.NURSE ---
Day shift: Pt allowed to sleep through lunch. Tray is in her room. No s/s of pain/discomfort/distress. Call light in reach and door open. Bed alarm is on as well.
--- NOTE | 2018-06-19 14:00 | PC.NURSE ---
Day shift: Pt off unit in WC w/ her niece and this verse writer at 1350. Taken to [facility] to see Dr Loredo. Pt tolerated the ride well. Pt has light sensitivity and has this writers sunglasses on. Awaiting call from Dr Loredo to retrieve Pt at this time. Pt is under their care until back to this unit.
--- NOTE | 2018-06-19 14:31 | PT.IPTN ---
Current Diagnoses Iron deficiency anemia, unspecified (06/17/18) Hypo-osmolality and hyponatremia (06/17/18) Hypokalemia (06/17/18) Unspecified dementia without behavioral disturbance (06/17/18) Unspecified psychosis not due to a substance or known physiological condition (06/17/18) Major depressive disorder, single episode, unspecified (06/17/18) Unspecified mood [affective] disorder (06/17/18) Chronic kidney disease, stage 3 (moderate) (06/17/18) Other retention of urine (06/17/18) Altered mental status, unspecified (06/17/18) Physical Therapy Treatment Note M2 PT-IP Current Condition Start: 06/16/18 12:03 Freq: NEEDED Status: Active Protocol: Document 06/18/18 09:40 TMS (Rec: 06/18/18 11:03 TMS [id number]) Physical Therapy Current Condition Current Condition Evaluation Date 06/17/18 Treatment Diagnosis distressed, impaired activity tolerance, hyponatremia, urinary retention Onset Date 06/14/18 Weight Bearing Status Weight Bearing Status Weight Bear as Tolerated M3 PT-IP Subjective Start: 06/16/18 12:03 Freq: NEEDED Status: Active Protocol: Document 06/19/18 14:28 AB (Rec: 06/19/18 14:31 AB [id number]) Subjective Physical Therapy Visit Type Type Patient Refusal Notes checked on pt again this afternoon and pt refused stating that she is sleeping and for PT to check on somebody else. Checked on pt again and nurse stated that they will get her up for a procedure and for PT to assist pt. initiated getting pt out of bed but pt refused stated that she needs to wake up first but nurse has checked on pt and woke her up 10 mins prior already. PT informed pt that the Dr is waiting for her and pt stated that the doctor can wait for her since she has been paying him enough already. pt's niece present. Pt continues to refuse to get out of bed. Left pt with nurse.
--- NOTE | 2018-06-19 14:39 | PC.NURSE ---
Day shift: Pt back on this unit at approx 1430 from [facility]. Pt's niece stated that the bladder was not prolapsed per Dr Loredo. Will pass along in report. Pt back to bed w/ no s/s of pain or discomfort. She is still anxious though. This is her baseline. Call light in reach. Bed alarm is on. Pt retrieved by Keyanna ROMERO.
--- NOTE | 2018-06-19 15:22 | CM.DPC ---
DCP/continued: Reviewed chart. Spoke with Dr. Nixon this AM. He reports that patient having outpatient procedure today at Dr. Loredo's office. In addition, he has consulted Dr. Chen for patient's anxiety. Spoke briefly with Dr. Chen and she reports that she sees patient as outpatient as well. She plans to adjust medications and will be available for hospital and or SNF for questions. Spoke with Nadia at [facility] and she confirms if patient remains mentally stable that they can accept. PASRR signed by Dr. Nixon for hospital exempt discharge. P: [facility] when medically stable. CM team to follow closely. ZEINA Parry
[2018-06-19] MEDS: QUETIAPINE 100 MG TABLET PO (21:40)
[2018-06-20 05:38] VITALS: BP 154/76; PULSE 61; RESP 18; TEMP 36.5; O2SAT 99
[2018-06-20 06:51] LABS: Add Manual Diff / Slide Review NO; Basophils Percent Auto 0.1 % (0-2); Hematocrit 29.2 % (36-46); Lymphocytes Percent Auto 25.7 % (25-40); Mean Corpuscular HGB Conc 34.2 % (30-36); Mean Corpuscular Hemoglobin 32.3 PG (26-34); Mean Corpuscular Volume 94.5 fL (80-100); Monocytes Percent Auto 4.6 % (3-14); Neutrophils Absolute Auto 7200 /uL (3000-5900); Neutrophils Percent Auto 69.6 % (50-75); Platelet Count 257 X10^3/uL (150-400); Red Blood Cell Count 3.09 X10^6/uL (4.0-5.2); Red Cell Distribution Width 14.2 % (11.6-14.8); White Blood Cell Count 10.3 X10^3/uL (4.5-11.0)
[2018-06-20 07:00] VITALS: BP 150/79; PULSE 72; RESP 18; TEMP 36.6; O2SAT 96; O2SAT 99
[2018-06-20 07:00] LABS: BUN Creatinine Ratio 31.5 (6-22); Blood Urea Nitrogen 41 mg/dL (7-17); Calcium 9.7 mg/dL (8.4-10.2); Carbon Dioxide 25 mmol/L (22-32); Chloride 101 mmol/L (98-107); Estimated Glomerular Filt Rate 39.3 mL/min (>60); Glucose 94 mg/dL (80-110); HEMOLYSIS < 15 (0-50); Potassium 4.7 mmol/L (3.4-5.1); Sodium 131 mmol/L (137-145)
--- NOTE | 2018-06-20 08:36 | PM.DS.1 ---
History of Present Illness Date Patient Seen: 06/20/18 Time Patient Seen: 08:36 Chief complaint: sister states she is very distressed Narrative: View Report History [address] [address] History & Physical Report Patient: Silvina Pavon MR#: [id number] : 1935 Acct:[id number] Age/Sex: 83 / F ADM Date: 06/14/18 Loc: 214-1 Date of Service:06/14/[address]: Malik Crowe MD ADDENDUM Exam: Frail appearing older woman at 1st quite friendly but becomes a little agitated with time. HEENT unremarkable neck is benign chest is clear heart regular without murmur abdomen soft nontender normoactive bowel tones extremities benign neurologically nonfocal. Family history: No similar issues noted in the family. Addendum Documented By: Malik Crowe MD 06/14/182108 Addendum Signed By: <Electronically signed by Malik Crowe MD> 06/14/182109 History of Present Illness Date Patient Seen: 06/14/18 Time Patient Seen: 19:53 Chief complaint: sister states she is very distressed Narrative: 83-year-old patient who usually lives with her who had a rather significant fall of a couple weeks ago I think falling down the stairs at home causing some bleeding intracranially as well as a neck injury that led to a visit 1st to our ER and then to [facility] for stay. On discharge from there he moved to [facility] which he's has been at for the past 4 days. In the meantime patient has been living with her brother and [id number] I think but apparently she has been quite disturbed by this process, quite confused, up through the night loudly complaining and disruptive. Seems to be getting worse apparently so she was brought to the emergency room today for evaluation. She was found to have significant urinary retention but nothing else that seen at the place. It seemed most appropriate for her to return home to see her usual MD in the office tomorrow but the family refused to take her home as the disruption that she caused was causing issues for the family that they could no longer tolerate. Talking with the patient today she has no idea why she is here she has a sense that it is due to some issues with family so she is frustrated and fearful she insisted several times that she just wanted to be back home with her even as I explained the above. She denies any particular complaints denies any issues at home. A grandniece I think came in later and added a calming influence. Discharge Providers Date of admission: 06/17/18 10:40 Primary care physician: Hugo Nixon MD Consults: 06/14/18 11:48 Consult to Queen'S Counsel Stat Comment: geriatric, anxiety, family can't take care of her 06/14/18 16:36 Consult to Physician Routine Comment: Consulting Provider: Malik Crowe Reason for consultation: admission Has provider been notified: Yes 06/14/18 19:49 Consult to [facility]'S Counsel Routine Comment: placement issues until home 06/14/18 20:56 Consult to Dietitian, Adult Routine Comment: Reason For Exam: decrease in PO intake with acute stress. 06/15/18 08:44 Consult to Physician Routine Comment: Consulting Provider: Meri Chen Reason for consultation: behavior changes in patient Has provider been notified: Yes 06/15/18 16:15 Consult to Occupational Therapy Evaluate & Treat Comment: Physician Instructions: Evaluate and treat Consult to Physical Therapy Evaluate & Treat Comment: Physician Instructions: Evaluate and Treat 06/15/18 19:02 Consult to Dietitian, Adult Routine Comment: Reason For Exam: mentally struggling and poor diet. recomendations 06/17/18 10:42 Consult to Occupational Therapy Evaluate & Treat Comment: Physician Instructions: Evaluate and treat Consult to Physical Therapy Evaluate & Treat Comment: Physician Instructions: Evaluate and Treat 06/18/18 08:36 Consult to Physician Routine Comment: Consulting Provider: Stacey Loredo Reason for consultation: urinary retention Has provider been notified: Yes 06/19/18 08:50 Consult to Occupational Therapy Evaluate & Treat Comment: Physician Instructions: Evaluate and treat Discharge provider: Hugo Nixon MD Summary Discharge Diagnosis: Hyponatremia Urinary retention Mood disorder Weakness Hospital Course: Hyponatremia. Patient was admitted and noted to be hyponatremic. She was given some IV hydration and usual diet and slowly improved. It was felt to be secondary to her change in mental status and possible medication. She resolved most of her hyponatremia and will be followed as outpatient. Urinary retention. Patient was noted on admission to be in urinary retention Arteaga was placed. This never been an issue in the previous history. She was having minimal pain. No infection. Discontinued Arteaga and within 24 hr she was retaining again. Arteaga was placed. There was some concern over possible uterine prolapse and Dr. Loredo was consulted. She felt like it was not large enough to be causing the problem. Due to the fact that we do not have Urology availability here in the hospital will follow up with an outpatient and continue Arteaga. Mood disorder. Patient was seen by Dr. Chen while in the hospital. [place] to be actually quit doing quite well. EKG was undertaken which did not show any abnormality. Check she was stable with most of her anxiety throughout the course of the admission. She was getting 25 mg of her Seroquel as needed for increased anxiety which did well. Dr. Chen does not want to have any benzodiazepines as this may cause worsening in her mental status. Dr. Chen would like to see her in 2 weeks. Weakness. Probably combination of multiple issues including her hyponatremia. Physical therapy was introduced. No definitive cause was found. Will continue OT PT as outpatient hopefully she can get strong and will follow from there. Disposition unclear what the final disposition will be. We will have to work this out with social Service over time. She will follow up with me in 2 weeks she will follow up with Dr. Chen around 2 weeks. She will be set up with appointment as outpatient with Urology. Status at Discharge Cognitive/behavioral status at discharge: At baseline Functional status at discharge: independent ambulation Overall status at discharge: patient is progressing back to baseline Time Spent with Patient Greater than 30 minutes Exam Vital Signs (past 8 hours): - 06/20/18 05:38 Temperature 97.7 F Pulse Rate 61 Respiratory Rate 18 Blood Pressure 154/76 H Pulse Oximetry 99 Oxygen Delivery Method Room Air Oxygen Flow Rate 0 Objective Labs Result Diagrams: 06/20/18 06:25 06/20/18 06:25 Labs: Laboratory Results - last 24 hr 06/19/18 06/20/18 06/20/18 08:25 06:25 06:25 WBC 10.3 RBC 3.09 L Hgb 10.0 L Hct 29.2 L MCV 94.5 MCH 32.3 MCHC 34.2 RDW 14.2 Plt Count 257 Neut % (Auto) 69.6 Lymph % (Auto) 25.7 [place] % (Auto) 4.6 Eos % (Auto) 0.0 L Baso % (Auto) 0.1 Neut # (Auto) 7200 H Sodium 131 L 131 L Potassium 4.1 4.7 Chloride 98 101 Carbon Dioxide 27 25 BUN 39 H 41 H Creatinine 1.30 H 1.30 H Estimated GFR 39.3 L 39.3 L BUN/Creatinine Ratio 30.0 H 31.5 H Glucose 85 94 Calcium 9.8 9.7 Discharge Plan Discharge Plan Patient Disposition: SNF Transfer to: [facility] Under care of provider: Dr. Nixon Transportation: Wheelchair Labs: cbc and bmp in one week please Consult as needed: Dental, Hearing, Podiatry and Vision I certify the postop hospital residential care is medically necessary on a continuing basis for any conditions for which he/ she received care during this hospitalization.: Yes The receiving facility has agreed to accept transfer and provide medical treatment.: Yes Discharge Health Status Brief summary of current health status: Patient came in with mental status changes and urinary retention. Was sound to be hypo natremia. Was admitted and with hydration observation patient improved. Multidrug resistant organism: No MDRO Precautions: [place] Provider Discharge Instructions Diet: Diet as Tolerated Liquid consistency: Normal/Thin Food texture: Regular Activity: As tolerated Catheter: 2-way Arteaga Catheter comment: Patient with urinary retention. Will need to be seen by urologist as outpa [facility] Reason for rehabilitation: Recovery r/t decondition Rehab type: Physical therapy and Occupational therapy Discharge Data Primary Care Provider: Hugo iNxon Attending Provider: Hugo Nixon Admit Date/Time: 06/17/18 10:40 Quality VTE Deep Vein Thrombosis/Pulmonary Embolism Present on Admission: No
--- NOTE | 2018-06-20 08:44 | P.DS_ITS ---
History of Present Illness Date Patient Seen: 06/20/18 Time Patient Seen: 08:36 Chief complaint: sister states she is very distressed Narrative: View Report History [address] [address] History & Physical Report Patient: Silvina Pavon MR#: [id number] : 1935 Acct:[id number] Age/Sex: 83 / F ADM Date: 06/14/18 Loc: 214-1 Date of Service:06/14/[address]: Malik Crowe MD ADDENDUM Exam: Frail appearing older woman at 1st quite friendly but becomes a little agitated with time. HEENT unremarkable neck is benign chest is clear heart regular without murmur abdomen soft nontender normoactive bowel tones extremities benign neurologically nonfocal. Family history: No similar issues noted in the family. Addendum Documented By: Malik Crowe MD 06/14/182108 Addendum Signed By: <Electronically signed by Malik Crowe MD> 06/14/182109 History of Present Illness Date Patient Seen: 06/14/18 Time Patient Seen: 19:53 Chief complaint: sister states she is very distressed Narrative: 83-year-old patient who usually lives with her who had a rather significant fall of a couple weeks ago I think falling down the stairs at home causing some bleeding intracranially as well as a neck injury that led to a visit 1st to our ER and then to [facility] for stay. On discharge from there he moved to [facility] which he's has been at for the past 4 days. In the meantime patient has been living with her brother and sister-in- law I think but apparently she has been quite disturbed by this process, quite confused, up through the night loudly complaining and disruptive. Seems to be getting worse apparently so she was brought to the emergency room today for evaluation. She was found to have significant urinary retention but nothing else that seen at the place. It seemed most appropriate for her to return home to see her usual MD in the office tomorrow but the family refused to take her home as the disruption that she caused was causing issues for the family that they could no longer tolerate. Talking with the patient today she has no idea why she is here she has a sense that it is due to some issues with family so she is frustrated and fearful she insisted several times that she just wanted to be back home with her even as I explained the above. She denies any particular complaints denies any issues at home. A grandniece I think came in later and added a calming influence. Discharge Providers Date of admission: 06/17/18 10:40 Primary care physician: Hugo Nixon MD Consults: 06/14/18 11:48 Consult to Social Services Manager Stat Comment: geriatric, anxiety, family can't take care of her 06/14/18 16:36 Consult to Physician Routine Comment: Consulting Provider: Malik Crowe Reason for consultation: admission Has provider been notified: Yes 06/14/18 19:49 Consult to Social Services Manager Routine Comment: placement issues until home 06/14/18 20:56 Consult to Dietitian, Adult Routine Comment: Reason For Exam: decrease in PO intake with acute stress. 06/15/18 08:44 Consult to Physician Routine Comment: Consulting Provider: Meri Chen Reason for consultation: behavior changes in patient Has provider been notified: Yes 06/15/18 16:15 Consult to Occupational Therapy Evaluate & Treat Comment: Physician Instructions: Evaluate and treat Consult to Physical Therapy Evaluate & Treat Comment: Physician Instructions: Evaluate and Treat 06/15/18 19:02 Consult to Dietitian, Adult Routine Comment: Reason For Exam: mentally struggling and poor diet. recomendations 06/17/18 10:42 Consult to Occupational Therapy Evaluate & Treat Comment: Physician Instructions: Evaluate and treat Consult to Physical Therapy Evaluate & Treat Comment: Physician Instructions: Evaluate and Treat 06/18/18 08:36 Consult to Physician Routine Comment: Consulting Provider: Stacey Loredo Reason for consultation: urinary retention Has provider been notified: Yes 06/19/18 08:50 Consult to Occupational Therapy Evaluate & Treat Comment: Physician Instructions: Evaluate and treat Discharge provider: Hugo Nixon MD Summary Discharge Diagnosis: Hyponatremia Urinary retention Mood disorder Weakness Hospital Course: Hyponatremia. Patient was admitted and noted to be hyponatremic. She was given some IV hydration and usual diet and slowly improved. It was felt to be secondary to her change in mental status and possible medication. She resolved most of her hyponatremia and will be followed as outpatient. Urinary retention. Patient was noted on admission to be in urinary retention Arteaga was placed. This never been an issue in the previous history. She was having minimal pain. No infection. Discontinued Arteaga and within 24 hr she was retaining again. Arteaga was placed. There was some concern over possible uterine prolapse and Dr. Loredo was consulted. She felt like it was not large enough to be causing the problem. Due to the fact that we do not have Urology availability here in the hospital will follow up with an outpatient and continue Arteaga. Mood disorder. Patient was seen by Dr. Chen while in the hospital. [place] to be actually quit doing quite well. EKG was undertaken which did not show any abnormality. Check she was stable with most of her anxiety throughout the course of the admission. She was getting 25 mg of her Seroquel as needed for increased anxiety which did well. Dr. Chen does not want to have any benzodiazepines as this may cause worsening in her mental status. Dr. Chen would like to see her in 2 weeks. Weakness. Probably combination of multiple issues including her hyponatremia. Physical therapy was introduced. No definitive cause was found. Will continue OT PT as outpatient hopefully she can get strong and will follow from there. Disposition unclear what the final disposition will be. We will have to work this out with social Service over time. She will follow up with me in 2 weeks she will follow up with Dr. Chen around 2 weeks. She will be set up with appointment as outpatient with Urology. Status at Discharge Cognitive/behavioral status at discharge: At baseline Functional status at discharge: independent ambulation Overall status at discharge: patient is progressing back to baseline Time Spent with Patient Greater than 30 minutes Exam Vital Signs (past 8 hours): - 06/20/18 05:38 Temperature 97.7 F Pulse Rate 61 Respiratory Rate 18 Blood Pressure 154/76 H Pulse Oximetry 99 Oxygen Delivery Method Room Air Oxygen Flow Rate 0 Objective Labs Result Diagrams: 06/20/18 06:25 06/20/18 06:25 Labs: Laboratory Results - last 24 hr 06/19/18 06/20/18 06/20/18 08:25 06:25 06:25 WBC 10.3 RBC 3.09 L Hgb 10.0 L Hct 29.2 L MCV 94.5 MCH 32.3 MCHC 34.2 RDW 14.2 Plt Count 257 Neut % (Auto) 69.6 Lymph % (Auto) 25.7 [place] % (Auto) 4.6 Eos % (Auto) 0.0 L Baso % (Auto) 0.1 Neut # (Auto) 7200 H Sodium 131 L 131 L Potassium 4.1 4.7 Chloride 98 101 Carbon Dioxide 27 25 BUN 39 H 41 H Creatinine 1.30 H 1.30 H Estimated GFR 39.3 L 39.3 L BUN/Creatinine Ratio 30.0 H 31.5 H Glucose 85 94 Calcium 9.8 9.7 Discharge Plan Discharge Plan Patient Disposition: SNF Transfer to: [facility] Under care of provider: Dr. Nixon Transportation: Wheelchair Labs: cbc and bmp in one week please Consult as needed: Dental, Hearing, Podiatry and Vision I certify the postop hospital usp care is medically necessary on a continuing basis for any conditions for which he/ she received care during this hospitalization.: Yes The receiving facility has agreed to accept transfer and provide medical treatment.: Yes Discharge Health Status Brief summary of current health status: Patient came in with mental status changes and urinary retention. Was sound to be hypo natremia. Was admitted and with hydration observation patient improved. Multidrug resistant organism: No MDRO Precautions: [place] Provider Discharge Instructions Diet: Diet as Tolerated Liquid consistency: Normal/Thin Food texture: Regular Activity: As tolerated Catheter: 2-way Arteaga Catheter comment: Patient with urinary retention. Will need to be seen by urologist as outpa [facility] Reason for rehabilitation: Recovery r/t decondition Rehab type: Physical therapy and Occupational therapy Discharge Data Primary Care Provider: Hugo Nixon Attending Provider: Hugo Nixon Admit Date/Time: 06/17/18 10:40 Quality VTE Deep Vein Thrombosis/Pulmonary Embolism Present on Admission: No
--- NOTE | 2018-06-20 09:05 | PT.IPTN ---
Current Diagnoses Iron deficiency anemia, unspecified (06/17/18) Hypo-osmolality and hyponatremia (06/17/18) Hypokalemia (06/17/18) Unspecified dementia without behavioral disturbance (06/17/18) Unspecified psychosis not due to a substance or known physiological condition (06/17/18) Major depressive disorder, single episode, unspecified (06/17/18) Unspecified mood [affective] disorder (06/17/18) Chronic kidney disease, stage 3 (moderate) (06/17/18) Other retention of urine (06/17/18) Altered mental status, unspecified (06/17/18) Physical Therapy Treatment Note M2 PT-IP Current Condition Start: 06/16/18 12:03 Freq: NEEDED Status: Active Protocol: Document 06/18/18 09:40 TMS (Rec: 06/18/18 11:03 TMS [id number]) Physical Therapy Current Condition Current Condition Evaluation Date 06/17/18 Treatment Diagnosis distressed, impaired activity tolerance, hyponatremia, urinary retention Onset Date 06/14/18 Weight Bearing Status Weight Bearing Status Weight Bear as Tolerated M3 PT-IP Subjective Start: 06/16/18 12:03 Freq: NEEDED Status: Active Protocol: Document 06/20/18 09:03 MDD (Rec: 06/20/18 10:22 MDD [id number]) Subjective Physical Therapy Visit Type Type Patient Refusal Visit Start Time 09:05 Visit Stop Time 09:03 Total Visit Minutes 2 Physical Therapy Visit Comments Patient Comments Pt refuses therapy this am, stating I can't get up now, I just went to the bathroom. When questioned, agreeable to try to get to her chair for lunch. M7 PT-IP Assessment and Plan Start: 06/16/18 12:03 Freq: NEEDED Status: Active Protocol: Document 06/18/18 09:40 TMS (Rec: 06/18/18 11:03 TMS [id number]) PT Summary Assessment and Plan Summary Assessment Summary Pt. very anxious, slighly unsteady with gait with many cues needed for turns and sink /toilet approach. Not willing to walk further secondary to anxiety. Frequency of Treatment Frequency Of Treatment Once a Day Treatment Plan Physical Therapy Treatment Plan Bed Mobility Training Transfer Training Gait Training Therapeutic Exercise Balance Retraining Discharge Planning Neuromuscular Re-ed Recommendations To Nursing Amount of Assist Needed 1 Person Assist Discharge Recommendations PT Discharge Recommendations SNF Rehab
[2018-06-20 10:30] VITALS: PULSE 72
[2018-06-20] MEDS: CARVEDILOL 12.5 MG TABLET PO (10:30)
[2018-06-20] MEDS: POTASSIUM CHLORIDE 20 MEQ TAB PO (10:30)
[2018-06-20] MEDS: ENOXAPARIN 30 MG/0.3 ML SYRINGE SUBCUT (10:30)
[2018-06-20] MEDS: ESTRADIOL 1 MG TABLET PO (10:31)
--- NOTE | 2018-06-20 11:11 | PC.NURSE ---
Addendum entered by Meagan Dorsey R.N. 06/20/18 12:33: Call to Nadia for report, RN from [facility] will call back to nurses station. Original Note: Addendum entered by Meagan Dorsey R.N. 06/20/18 11:41: 1130-Pt down to ICU to visit with spouse and will d/c to [facility] from ICU. Niece is with Pt, and sister is en route. Attempted report to [facility], unable. Will retry Original Note: Am shift Pt continues with anxiety, although per Staff that have cared for patient this week, it is improved at this time. CM into see Pt and discuss transition to [facility]. This is upsetting to Pt, and bruce Nunes is at bedside to help calm Pt. Reassured of continued care
--- NOTE | 2018-06-20 14:16 | CM.DPC ---
Addendum entered by ZEINA Madison 06/20/18 14:27: DC NOte: In addition, sister Zeferino notified of DC and was going to drive from [place] to meet pt either at or [facility]. Original Note: DC Note: DC order for SNF in place and [facility] has accepted pt. Discussed DC w/Dr Ramires this morning; she is aware pt will DC to [facility] today, she has left detailed instructions/med orders in her prog notes and pt has been scheduled for f/u August 17, [facility] staff can call to request f/u sooner if needed. Met w/pt w/assist from HEATHER Vallecillo. Pt remains concerned that she will no longer see Asad, her (currently admitted in the critical care unit). Pt was escorted down to visit her before [facility] staff came to take her to the [facility] campus. Patient, RN Coordinator JOSE Hugo, HEATHER Vallecillo, and CHIEF ENGINEER'S HELPER aware and agreeable to this plan. DC to [facility] via w/c today. ZEINA Madison
== END 2018-06-20 13:10 | DRG 641 ==
LOC: ED 16:27 → AC 16:32
PROVIDERS: Admitting Provider Family Medicine; Emergency Provider Emergency Medicine; Family Provider Family Medicine; PCP Family Medicine; Visit Provider Family Medicine
DX: E87.1 Hypo-osmolality and hyponatremia (principal); R33.9 Retention of urine, unspecified; F39 Unspecified mood [affective] disorder; I12.9 Hypertensive chronic kidney disease with stage 1 through stage 4 chronic kidney disease, or unspecified chronic kidney disease; N18.3 Chronic kidney disease, stage 3 (moderate); E87.6 Hypokalemia; D50.9 Iron deficiency anemia, unspecified; F03.90 Unspecified dementia, unspecified severity, without behavioral disturbance, psychotic disturbance, mood disturbance, and anxiety; F32.9 Major depressive disorder, single episode, unspecified; D89.2 Hypergammaglobulinemia, unspecified; N28.89 Other specified disorders of kidney and ureter; E03.9 Hypothyroidism, unspecified
CPT/HCPCS: 36415; 36591; 51701; 80048; 80053; 80305; 80320; 80329; 81001; 82140; 83735; 84443; 85025; 87086; 93005; 93010; 97162; 97165; 97530; 97535; 99232; 99283; G0378; G0480; J1650

== ENCOUNTER → 2018-07-04 13:42 | Outpatient (CLI) | payer MEDICARE, OTHER, SELFPAY ==
[2018-06-14 16:55] VITALS: BMI 20.4
[2018-07-04 13:59] LABS: Add Manual Diff / Slide Review NO; Basophils Percent Auto 0.5 % (0-2); Eosinophils Percent Auto 0.1 % (2-4); Hematocrit 31.3 % (36-46); Hemoglobin 10.8 g/dL (12.0-16.0); Mean Corpuscular HGB Conc 34.4 % (30-36); Mean Corpuscular Hemoglobin 32.4 PG (26-34); Mean Corpuscular Volume 93.9 fL (80-100); Monocytes Percent Auto 1.9 % (3-14); Neutrophils Absolute Auto 7900 /uL (3000-5900); Neutrophils Percent Auto 84.5 % (50-75); Platelet Count 202 X10^3/uL (150-400); Red Blood Cell Count 3.33 X10^6/uL (4.0-5.2); Red Cell Distribution Width 14.3 % (11.6-14.8); White Blood Cell Count 9.3 X10^3/uL (4.5-11.0)
[2018-07-04 14:13] LABS: BUN Creatinine Ratio 29.2 (6-22); Blood Urea Nitrogen 35 mg/dL (7-17); Carbon Dioxide 24 mmol/L (22-32); Chloride 94 mmol/L (98-107); Estimated Glomerular Filt Rate 43.1 mL/min (>60); Glucose 105 mg/dL (80-110); HEMOLYSIS < 15 (0-50); Sodium 127 mmol/L (137-145)
== END ==
PROVIDERS: Family Provider Family Medicine; PCP Family Medicine; Visit Provider Internal Medicine Nephrology
DX: I12.9 Hypertensive chronic kidney disease with stage 1 through stage 4 chronic kidney disease, or unspecified chronic kidney disease (principal); N18.3 Chronic kidney disease, stage 3 (moderate); D63.1 Anemia in chronic kidney disease
CPT/HCPCS: 36415; 80048; 85025

== ENCOUNTER 2018-07-16 17:11 | Inpatient (IN) | payer MEDICARE, OTHER, SELFPAY ==
[2018-07-16] VITALS (7 sets, daily range): BP systolic 79–110; BP diastolic 40–69; PULSE 65–90; RESP 16–17; O2SAT 94–99; BMI 19.1
[2018-07-16] MEDS: SODIUM CHLORIDE 0.9% 1,000 ML 500 ML IV (17:52)
[2018-07-16 18:14] LABS: Add Manual Diff / Slide Review NO; Basophils Percent Auto 0.5 % (0-2); Hematocrit 32.7 % (36-46); Hemoglobin 11.3 g/dL (12.0-16.0); Mean Corpuscular HGB Conc 34.7 % (30-36); Mean Corpuscular Hemoglobin 31.8 PG (26-34); Mean Corpuscular Volume 91.8 fL (80-100); Monocytes Percent Auto 2.8 % (3-14); Neutrophils Absolute Auto 8300 /uL (3000-5900); Neutrophils Percent Auto 83.7 % (50-75); Platelet Count 211 X10^3/uL (150-400); Red Blood Cell Count 3.56 X10^6/uL (4.0-5.2); Red Cell Distribution Width 13.9 % (11.6-14.8); White Blood Cell Count 9.9 X10^3/uL (4.5-11.0)
[2018-07-16 18:33] LABS: Alanine Aminotransferase 26 IU/L (9-52); Albumin 3.6 g/dL (3.5-5.0); Albumin Globulin Ratio 1.3 (1.0-2.8); Alkaline Phosphatase 56 U/L (38-126); Aspartate Aminotransferase 22 IU/L (14-36); Bilirubin Total 0.6 mg/dL (0.2-1.3); Blood Urea Nitrogen 38 mg/dL (7-17); Calcium 8.7 mg/dL (8.4-10.2); Carbon Dioxide 22 mmol/L (22-32); Chloride 94 mmol/L (98-107); Creatine Kinase < 20 U/L (30-135); Estimated Glomerular Filt Rate 25.4 mL/min (>60); Globulin 2.7 g/dL (1.7-4.1); Glucose 213 mg/dL (80-110); HEMOLYSIS < 15 (0-50); Potassium 4.2 mmol/L (3.4-5.1); Sodium 126 mmol/L (137-145); Total Protein 6.3 g/dL (6.3-8.2)
--- NOTE | 2018-07-16 19:04 | ED.WEAKNESS ---
HPI - Weakness General Chief complaint: Weakness Stated complaint: GLF, Hypotension Time Seen by Provider: 07/16/18 18:12 Source: family and EMS Mode of arrival: EMS Limitations: altered mental status History of Present Illness HPI Narrative: 83-year-old female with multiple medical problems including renal failure and hypothyroid presents by EMS for evaluation of mental status change, generalized weakness and a ground level fall earlier today. On arrival EMS found her blood pressure in the 80s. [facility] and had her [place] catheter removed. The patient has had no fever or chills nor nausea or vomiting. She is normally quite verbal at baseline is able to ambulate but has had a departure from her normal over the past day or 2, this is confirmed by nursing and the patient's family MD Complaint: generalized weakness Onset (ago): hour(s) Duration: constant Location: generalized Migration: none Severity: moderate Context: recent illness Associated symptoms: denies other symptoms Related Data Home Medications Medication Instructions Recorded Confirmed estradiol 1 mg PO QDAY #0 02/01/04 06/14/18 carvedilol [Coreg] 12.5 mg PO BID #0 11/12/16 06/14/18 prednisone 20 mg PO DAILY #0 05/03/17 06/14/18 sodium bicarbonate 650 mg PO BID #0 05/03/17 06/14/18 potassium chloride [Klor-Con M20] 20 meq PO BIDCC #0 09/19/17 06/14/18 [id number]-VF-lycopen-lutein 1 tab PO DAILY 06/14/18 06/14/18 [Centrum Silver] Previous Rx's Medication Instructions Recorded acetaminophen 650 mg PO Q6HR PRN #60 tab 06/20/18 calcium carbonate 1,000 mg PO Q4HR PRN #100 tab 06/20/18 magnesium hydroxide [Milk of 30 ml PO DAILY PRN #100 ml 06/20/18 Magnesia] quetiapine 100 mg tablet 100 mg PO BEDTIME 30 Days #30 tab 07/10/18 quetiapine 25 mg tablet 25 mg PO BID PRN 30 Days #60 tab 07/10/18 Allergies Allergy/AdvReac Type Severity Reaction Status Date / Time ascorbic acid Allergy Unknown Verified 06/14/18 11:44 aspirin [ASPIRIN] Allergy Unknown CHILDHOOD Verified 06/14/18 11:44 RX. Review of Systems Review of Systems Patient does not participate in a review of systems unobtainable due to mental status [facility] Medical History Hypertension (Acute) Urinary retention (Acute) Social History household members: family Smoking Status: Never smoker Exam Narrative Exam Narrative: 83-year-old female known by myself and other staff is clearly in distress and not at her baseline. Initial Vital Signs Initial Vital Signs: Vital Signs Pulse Rate 90 07/16/18 17:12 Respiratory Rate 17 07/16/18 17:12 Blood Pressure 79/40 L 07/16/18 17:12 Pulse Oximetry 97 07/16/18 17:12 Const General: cooperative, well developed and in distress Nutritional Appearance: well nourished Orientation: obtunded Limitations: altered mental status HENMT Head: normal to inspection Nose: external nose normal Face and sinus: normal facial exam Mouth: No moist mucous membranes Eyes General: appearance normal, both eyes and all related structures Eyelids: eyelids normal Conjunctivae: conjunctivae normal Sclera: sclerae normal Pupils: PERRL EOM: EOM intact bilaterally Resp Effort & Inspection: normal respiratory effort, able to speak in complete sentences, no respiratory distress and no use of accessory muscles Auscultation: clear to auscultation bilaterally, no rales, no rhonchi and no wheezes Cardio Rate: regular rate Rhythm: regular rhythm Heart Sounds: no click, no gallops, no murmurs and no rubs Pulses: normal peripheral pulses GI Inspection: non-distended Palpation: soft, no hepatosplenomegaly, No guarding, No pulsatile mass and tender (suprapubic) Auscultation: normal bowel sounds Skin General: no rashes or lesions noted, No jaundice and No petechiae Other: Dry skin with poor turgor Neuro Speech: abnormal speech Motor: muscle tone normal throughout Psych Appearance: disheveled Scores GCS Ming coma scale eye opening: To sound [place] coma scale verbal response: Words [place] coma scale motor response: Localising [place] coma scale total score: 11 Course Orders Ordered: ED Orders 07/16/18 18:00 Complete Blood Count AUTO DIFF Stat Comprehensive Metabolic Panel Stat Troponin & CK Cardiac Panel Stat 07/16/18 19:10 UA Complete [Urinalysis and Microscopic] Stat Urine Culture Stat 07/16/18 19:55 XR acute abdomen series Stat 07/16/18 21:06 Blood Culture Stat Lactate (Lactic Acid) Stat 07/17/18 05:00 Basic Metabolic Panel Stat Complete Blood Count AUTO DIFF Stat Sodium Chloride (Normal Saline 0.9%) 1,000 mls @ 125 mls/hr IV CONT IVAN Last Admin: 07/17/18 00:10 Dose: 125 mls/hr Methylprednisolone (Solu-Medrol 125 Mg Vial) 60 mg IV Q6HR IVAN Discontinued Medications Sodium Chloride (Normal Saline 0.9%) 1,000 mls @ 500 mls/hr IV CONT IVAN Last Infusion: 07/16/18 19:53 Dose: 0 mls/hr Admin: 07/16/18 17:52 Dose: 500 mls/hr Ceftriaxone Sodium/Dextrose (Rocephin) 1 gm in 50 mls @ 100 mls/hr IV NOW ONE Stop: 07/16/18 21:23 Last Infusion: 07/16/18 21:38 Dose: 0 mls/hr Admin: 07/16/18 20:59 Dose: 100 mls/hr Sodium Chloride (Normal Saline 0.9%) 1,000 mls @ 1,000 mls/hr IV BOLUS ONE Stop: 07/16/18 21:53 Last Infusion: 07/16/18 21:49 Dose: 0 mls/hr Admin: 07/16/18 20:59 Dose: 1,000 mls/hr Methylprednisolone (Solu-Medrol 125 Mg Vial) 125 mg IV NOW ONE Stop: 07/16/18 20:55 Last Admin: 07/16/18 20:59 Dose: 125 mg Vital Signs - 8 hr 07/16/18 18:29 07/16/18 18:32 07/16/18 18:45 Temperature Pulse Rate 74 73 72 Respiratory Rate 17 16 16 Blood Pressure Blood Pressure [Right Arm] 98/59 L 98/57 L 100/55 L Pulse Oximetry 94 97 95 07/16/18 19:32 07/16/18 20:36 07/16/18 21:03 Temperature Pulse Rate 65 69 66 Respiratory Rate 16 17 16 Blood Pressure Blood Pressure [Right Arm] 110/53 L 97/53 L 105/69 Pulse Oximetry 96 95 99 07/17/18 00:20 Temperature 96.3 F L Pulse Rate 60 Respiratory Rate 12 Blood Pressure 135/72 H Blood Pressure [Right Arm] Pulse Oximetry 95 MDM - Weakness Differential Diagnosis Differential diagnosis: Likely acute myocardial infarction, anemia, hypoglycemia, hypothyroidism, rhabdomyolysis, sepsis and dehydration Medical Records Attestation: I reviewed the patient's medical records. Lab Data Attestation: I reviewed the patient's lab results. Result diagrams: 07/16/18 18:00 07/16/18 18:00 Lab Results 07/16/18 07/16/18 07/16/18 Range/Units 18:00 18:00 19:10 WBC 9.9 (4.5-11.0) X10^3/uL RBC 3.56 L (4.0-5.2) X10^6/uL Hgb 11.3 L (12.0-16.0) g/dL Hct 32.7 L (36-46) % MCV 91.8 (80-100) fL MCH 31.8 (26-34) PG MCHC 34.7 (30-36) % RDW 13.9 (11.6-14.8) % Plt Count 211 (150-400) X10^3/uL Neut % (Auto) 83.7 H (50-75) % Lymph % (Auto) 13.0 L (25-40) % [place] % (Auto) 2.8 L (3-14) % Eos % (Auto) 0.0 L (2-4) % Baso % (Auto) 0.5 (0-2) % Neut # (Auto) 8300 H (2668-7213) /uL Sodium 126 L (137-145) mmol/L Potassium 4.2 (3.4-5.1) mmol/L Chloride 94 L (98-107) mmol/L Carbon Dioxide 22 (22-32) mmol/L BUN 38 H (7-17) mg/dL Creatinine 1.90 H (0.52-1.04) mg/dL Estimated GFR 25.4 L (>60) mL/min BUN/Creatinine Ratio 20.0 (6-22) Glucose 213 H (80-110) mg/dL Lactate (0.7-2.1) mmol/L Calcium 8.7 (8.4-10.2) mg/dL Total Bilirubin 0.6 (0.2-1.3) mg/dL AST 22 (14-36) IU/L ALT 26 (9-52) IU/L Alkaline Phosphatase 56 (38-126) U/L Total Creatine Kinase < 20 L (30-135) U/L CK-MB (CK-2) TNP Troponin I 0.070 H (0.01-0.034) ng/mL Total Protein 6.3 (6.3-8.2) g/dL Albumin 3.6 (3.5-5.0) g/dL Globulin 2.7 (1.7-4.1) g/dL Albumin/Globulin Ratio 1.3 (1.0-2.8) Procalcitonin (<0.5) ng/mL Urine Color Yellow Urine Appearance Cloudy Urine pH 8.0 (4.5-8.0) Ur Specific [place] 1.010 (1.000-1.035) Urine Protein 1+ H (Negative) Urine Glucose (UA) Negative (Normal) g/dL Urine Ketones 1+ H (NEGATIVE) Urine Occult Blood 3+ H (Negative) Urine Nitrate Negative (Negative) Urine Bilirubin Negative (NEGATIVE) Urine Urobilinogen 0.2 (0.2) E.U./dL Ur Leukocyte Esterase 3+ H (NEGATIVE) Urine RBC None seen (0-5/HPF) Urine WBC >100/hpf H (0-5/HPF) Urine Bacteria Many (>30) H (None) Ur Culture Indicated? Specimen cultured Micro UA Comment Not Reportable 07/16/18 07/16/18 Range/Units 21:06 Unknown WBC (4.5-11.0) X10^3/uL RBC (4.0-5.2) X10^6/uL Hgb (12.0-16.0) g/dL Hct (36-46) % MCV (80-100) fL MCH (26-34) PG MCHC (30-36) % RDW (11.6-14.8) % Plt Count (150-400) X10^3/uL Neut % (Auto) (50-75) % Lymph % (Auto) (25-40) % [place] % (Auto) (3-14) % Eos % (Auto) (2-4) % Baso % (Auto) (0-2) % Neut # (Auto) (2910-7077) /uL Sodium (137-145) mmol/L Potassium (3.4-5.1) mmol/L Chloride (98-107) mmol/L Carbon Dioxide (22-32) mmol/L BUN (7-17) mg/dL Creatinine (0.52-1.04) mg/dL Estimated GFR (>60) mL/min BUN/Creatinine Ratio (6-22) Glucose (80-110) mg/dL Lactate 0.7 (0.7-2.1) mmol/L Calcium (8.4-10.2) mg/dL Total Bilirubin (0.2-1.3) mg/dL AST (14-36) IU/L ALT (9-52) IU/L Alkaline Phosphatase (38-126) U/L Total Creatine Kinase (30-135) U/L CK-MB (CK-2) Troponin I (0.01-0.034) ng/mL Total Protein (6.3-8.2) g/dL Albumin (3.5-5.0) g/dL Globulin (1.7-4.1) g/dL Albumin/Globulin Ratio (1.0-2.8) Procalcitonin 0.24 (<0.5) ng/mL Urine Color Urine Appearance Urine pH (4.5-8.0) Ur Specific [place] (1.000-1.035) Urine Protein (Negative) Urine Glucose (UA) (Normal) g/dL Urine Ketones (NEGATIVE) Urine Occult Blood (Negative) Urine Nitrate (Negative) Urine Bilirubin (NEGATIVE) Urine Urobilinogen (0.2) E.U./dL Ur Leukocyte Esterase (NEGATIVE) Urine RBC (0-5/HPF) Urine WBC (0-5/HPF) Urine Bacteria (None) Ur Culture Indicated? Micro UA Comment MDM Narrative Medical decision making narrative: Patient presents with mental status change in clearly has a UTI and acute renal failure which are likely contributing to her mental status change. She is of significant departure from her baseline as confirmed by family and healthcare providers Discharge Plan Departure Patient Disposition: Admitted As Inpatient Clinical Impression: Acute renal failure, Acute metabolic encephalopathy, Acute UTI Discharge Date/Time: 07/16/18 21:51 Interventions: ED Discharge Assessment Last Done: 07/16/18 21:50 Admit Date/Time: 07/16/18 21:02 Admit Provider: Hugo Nixon
[2018-07-16 19:23] LABS: RBC Urine None Seen (0-5/HPF)
[2018-07-16 19:25] LABS: Bilirubin Urine UA NEGATIVE (NEGATIVE); Color Urine UA YELLOW; Glucose Urine UA NEGATIVE (Normal); Ketones Urine UA 1+ (NEGATIVE); Leukocyte Esterase Urine UA 3+ (NEGATIVE); Nitrite Urine UA Negative (Negative); Occult Blood Urine UA 3+ (Negative); Protein Urine UA 1+ (Negative); Urobilinogen Urine UA 0.2 E.U./dL (0.2)
[2018-07-16 19:28] LABS: Appearance Urine UA CLOUDY
[2018-07-16 19:30] LABS: Bacteria Urine Many (>30); Culture Indicated Urine Specimen Cultured; WBC Urine >100/HPF (0-5/HPF)
--- NOTE | 2018-07-16 19:55 | DI.RAD.S_ITS ---
PROCEDURE: XR ACUTE ABDOMEN SERIES INDICATIONS: Abdominal pain TECHNIQUE: One view chest and two views of the abdomen were acquired. COMPARISON: None. FINDINGS: Surgical changes and devices: None. Chest: Lungs are clear. Heart size is normal. No pleural effusions. No pneumoperitoneum. Abdomen: Bowel gas pattern is normal. No suspicious calcifications. Visualized solid organ contours appear normal. Bones: No suspicious bony lesions. IMPRESSION: No acute cardiopulmonary or intra-abdominal findings. Dictated by: Silvina Leon M.D. on 07/16/2018 at 20:23 Approved by: Silvina Leon M.D. on 07/16/2018 at 20:23
--- NOTE | 2018-07-16 20:08 | PC.NURSE ---
called to [facility] and spoke to nurse Angi about pt baseline. Angi reported pt is not herself. states she is usually alert and consous talking alot. pt is a 1pa and gets around ok.
--- NOTE | 2018-07-16 20:12 | PC.NURSE ---
pt laying on stretcher sleeping. Pt having difficulty staying awake and dozes off while speaking to her. 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
--- NOTE | 2018-07-16 20:35 | PC.NURSE ---
spoke to pt sister Zeferino, she reports pt is usually up moving around and taking care of simple life tasks. pt recently and pt had been declining since his passing. was caregiver. pt was then placed at [facility] and had a catheter placed for reasons she did not know. pt was moved from [facility] to [facility] and catheter was removed to trial and see if she will void.
[2018-07-16] MEDS: CEFTRIAXONE 1 GM/50 ML FROZ.PIGGY IV (20:59)
[2018-07-16] MEDS: SODIUM CHLORIDE 0.9% 1,000 ML 1000 ML IV (20:59)
[2018-07-16] MEDS: methylPREDNISolone 125 MG/2 ML VIAL IV (20:59)
[2018-07-16 21:40] LABS: Lactate (Lactic Acid) 0.7 mmol/L (0.7-2.1)
[2018-07-16 22:00] LABS: Procalcitonin 0.24 ng/mL (<0.5)
[2018-07-17] VITALS (10 sets, daily range): BP systolic 135–160; BP diastolic 68–80; PULSE 60–85; RESP 12–20; TEMP 35.7–36.8; O2SAT 95–98; BMI 18.9
[2018-07-17] MEDS: SODIUM CHLORIDE 0.9% 1,000 ML 125 ML IV ×3 (00:10→21:25)
--- NOTE | 2018-07-17 02:10 | ED_ITS ---
HPI - Weakness General Chief complaint: Weakness Stated complaint: GLF, Hypotension Time Seen by Provider: 07/16/18 18:12 Source: family and EMS Mode of arrival: EMS Limitations: altered mental status History of Present Illness HPI Narrative: 83-year-old female with multiple medical problems including renal failure and hypothyroid presents by EMS for evaluation of mental status change, generalized weakness and a ground level fall earlier today. On arrival EMS found her blood pressure in the 80s. She recently was transferred [facility] the [facility] and had her Arte[place] catheter removed. The patient has had no fever or chills nor nausea or vomiting. She is normally quite verbal at baseline is able to ambulate but has had a departure from her normal over the past day or 2, this is confirmed by nursing and the patient's family MD Complaint: generalized weakness Onset (ago): hour(s) Duration: constant Location: generalized Migration: none Severity: moderate Context: recent illness Associated symptoms: denies other symptoms Related Data Home Medications Medication Instructions Recorded Confirmed estradiol 1 mg PO QDAY #0 02/01/04 06/14/18 carvedilol [Coreg] 12.5 mg PO BID #0 11/12/16 06/14/18 prednisone 20 mg PO DAILY #0 05/03/17 06/14/18 sodium bicarbonate 650 mg PO BID #0 05/03/17 06/14/18 potassium chloride [Klor-Con M20] 20 meq PO BIDCC #0 09/19/17 06/14/18 htvmoywk-ryk-EB-lycopen-lutein 1 tab PO DAILY 06/14/18 06/14/18 [Centrum Silver] Previous Rx's Medication Instructions Recorded acetaminophen 650 mg PO Q6HR PRN #60 tab 06/20/18 calcium carbonate 1,000 mg PO Q4HR PRN #100 tab 06/20/18 magnesium hydroxide [Milk of 30 ml PO DAILY PRN #100 ml 06/20/18 Magnesia] quetiapine 100 mg tablet 100 mg PO BEDTIME 30 Days #30 tab 07/10/18 quetiapine 25 mg tablet 25 mg PO BID PRN 30 Days #60 tab 07/10/18 Allergies Allergy/AdvReac Type Severity Reaction Status Date / Time ascorbic acid Allergy Unknown Verified 06/14/18 11:44 aspirin [ASPIRIN] Allergy Unknown CHILDHOOD Verified 06/14/18 11:44 RX. Review of Systems Review of Systems Patient does not participate in a review of systems unobtainable due to mental status [facility] Medical History Hypertension (Acute) Urinary retention (Acute) Social History household members: family Smoking Status: Never smoker Exam Narrative Exam Narrative: 83-year-old female known by myself and other staff is clearly in distress and not at her baseline. Initial Vital Signs Initial Vital Signs: Vital Signs Pulse Rate 90 07/16/18 17:12 Respiratory Rate 17 07/16/18 17:12 Blood Pressure 79/40 L 07/16/18 17:12 Pulse Oximetry 97 07/16/18 17:12 Const General: cooperative, well developed and in distress Nutritional Appearance: well nourished Orientation: obtunded Limitations: altered mental status HENMT Head: normal to inspection Nose: external nose normal Face and sinus: normal facial exam Mouth: No moist mucous membranes Eyes General: appearance normal, both eyes and all related structures Eyelids: eyelids normal Conjunctivae: conjunctivae normal Sclera: sclerae normal Pupils: PERRL EOM: EOM intact bilaterally Resp Effort & Inspection: normal respiratory effort, able to speak in complete sentences, no respiratory distress and no use of accessory muscles Auscultation: clear to auscultation bilaterally, no rales, no rhonchi and no wheezes Cardio Rate: regular rate Rhythm: regular rhythm Heart Sounds: no click, no gallops, no murmurs and no rubs Pulses: normal peripheral pulses GI Inspection: non-distended Palpation: soft, no hepatosplenomegaly, No guarding, No pulsatile mass and tender (suprapubic) Auscultation: normal bowel sounds Skin General: no rashes or lesions noted, No jaundice and No petechiae Other: Dry skin with poor turgor Neuro Speech: abnormal speech Motor: muscle tone normal throughout Psych Appearance: disheveled Scores GCS Ming coma scale eye opening: To sound [place] coma scale verbal response: Words [place] coma scale motor response: Localising Ming coma scale total score: 11 Course Orders Ordered: ED Orders 07/16/18 18:00 Complete Blood Count AUTO DIFF Stat Comprehensive Metabolic Panel Stat Troponin & CK Cardiac Panel Stat 07/16/18 19:10 UA Complete [Urinalysis and Microscopic] Stat Urine Culture Stat 07/16/18 19:55 XR acute abdomen series Stat 07/16/18 21:06 Blood Culture Stat Lactate (Lactic Acid) Stat 07/17/18 05:00 Basic Metabolic Panel Stat Complete Blood Count AUTO DIFF Stat Sodium Chloride (Normal Saline 0.9%) 1,000 mls @ 125 mls/hr IV CONT IVAN Last Admin: 07/17/18 00:10 Dose: 125 mls/hr Methylprednisolone (Solu-Medrol 125 Mg Vial) 60 mg IV Q6HR IVAN Discontinued Medications Sodium Chloride (Normal Saline 0.9%) 1,000 mls @ 500 mls/hr IV CONT VIAN Last Infusion: 07/16/18 19:53 Dose: 0 mls/hr Admin: 07/16/18 17:52 Dose: 500 mls/hr Ceftriaxone Sodium/Dextrose (Rocephin) 1 gm in 50 mls @ 100 mls/hr IV NOW ONE Stop: 07/16/18 21:23 Last Infusion: 07/16/18 21:38 Dose: 0 mls/hr Admin: 07/16/18 20:59 Dose: 100 mls/hr Sodium Chloride (Normal Saline 0.9%) 1,000 mls @ 1,000 mls/hr IV BOLUS ONE Stop: 07/16/18 21:53 Last Infusion: 07/16/18 21:49 Dose: 0 mls/hr Admin: 07/16/18 20:59 Dose: 1,000 mls/hr Methylprednisolone (Solu-Medrol 125 Mg Vial) 125 mg IV NOW ONE Stop: 07/16/18 20:55 Last Admin: 07/16/18 20:59 Dose: 125 mg Vital Signs - 8 hr 07/16/18 18:29 07/16/18 18:32 07/16/18 18:45 Temperature Pulse Rate 74 73 72 Respiratory Rate 17 16 16 Blood Pressure Blood Pressure [Right Arm] 98/59 L 98/57 L 100/55 L Pulse Oximetry 94 97 95 07/16/18 19:32 07/16/18 20:36 07/16/18 21:03 Temperature Pulse Rate 65 69 66 Respiratory Rate 16 17 16 Blood Pressure Blood Pressure [Right Arm] 110/53 L 97/53 L 105/69 Pulse Oximetry 96 95 99 07/17/18 00:20 Temperature 96.3 F L Pulse Rate 60 Respiratory Rate 12 Blood Pressure 135/72 H Blood Pressure [Right Arm] Pulse Oximetry 95 MDM - Weakness Differential Diagnosis Differential diagnosis: Likely acute myocardial infarction, anemia, hypoglycemia , hypothyroidism, rhabdomyolysis, sepsis and dehydration Medical Records Attestation: I reviewed the patient's medical records. Lab Data Attestation: I reviewed the patient's lab results. Result diagrams: 07/16/18 18:00 07/16/18 18:00 Lab Results 07/16/18 07/16/18 07/16/18 Range/Units 18:00 18:00 19:10 WBC 9.9 (4.5-11.0) X10^3/uL RBC 3.56 L (4.0-5.2) X10^6/uL Hgb 11.3 L (12.0-16.0) g/dL Hct 32.7 L (36-46) % MCV 91.8 (80-100) fL MCH 31.8 (26-34) PG MCHC 34.7 (30-36) % RDW 13.9 (11.6-14.8) % Plt Count 211 (150-400) X10^3/uL Neut % (Auto) 83.7 H (50-75) % Lymph % (Auto) 13.0 L (25-40) % [place] % (Auto) 2.8 L (3-14) % Eos % (Auto) 0.0 L (2-4) % Baso % (Auto) 0.5 (0-2) % Neut # (Auto) 8300 H (1390-8032) /uL Sodium 126 L (137-145) mmol/L Potassium 4.2 (3.4-5.1) mmol/L Chloride 94 L (98-107) mmol/L Carbon Dioxide 22 (22-32) mmol/L BUN 38 H (7-17) mg/dL Creatinine 1.90 H (0.52-1.04) mg/dL Estimated GFR 25.4 L (>60) mL/min BUN/Creatinine Ratio 20.0 (6-22) Glucose 213 H (80-110) mg/dL Lactate (0.7-2.1) mmol/L Calcium 8.7 (8.4-10.2) mg/dL Total Bilirubin 0.6 (0.2-1.3) mg/dL AST 22 (14-36) IU/L ALT 26 (9-52) IU/L Alkaline Phosphatase 56 (38-126) U/L Total Creatine Kinase < 20 L (30-135) U/L CK-MB (CK-2) TNP Troponin I 0.070 H (0.01-0.034) ng/mL Total Protein 6.3 (6.3-8.2) g/dL Albumin 3.6 (3.5-5.0) g/dL Globulin 2.7 (1.7-4.1) g/dL Albumin/Globulin Ratio 1.3 (1.0-2.8) Procalcitonin (<0.5) ng/mL Urine Color Yellow Urine Appearance Cloudy Urine pH 8.0 (4.5-8.0) Ur Specific [place] 1.010 (1.000-1.035) Urine Protein 1+ H (Negative) Urine Glucose (UA) Negative (Normal) g/dL Urine Ketones 1+ H (NEGATIVE) Urine Occult Blood 3+ H (Negative) Urine Nitrate Negative (Negative) Urine Bilirubin Negative (NEGATIVE) Urine Urobilinogen 0.2 (0.2) E.U./dL Ur Leukocyte Esterase 3+ H (NEGATIVE) Urine RBC None seen (0-5/HPF) Urine WBC >100/hpf H (0-5/HPF) Urine Bacteria Many (>30) H (None) Ur Culture Indicated? Specimen cultured Micro UA Comment Not Reportable 07/16/18 07/16/18 Range/Units 21:06 Unknown WBC (4.5-11.0) X10^3/uL RBC (4.0-5.2) X10^6/uL Hgb (12.0-16.0) g/dL Hct (36-46) % MCV (80-100) fL MCH (26-34) PG MCHC (30-36) % RDW (11.6-14.8) % Plt Count (150-400) X10^3/uL Neut % (Auto) (50-75) % Lymph % (Auto) (25-40) % [place] % (Auto) (3-14) % Eos % (Auto) (2-4) % Baso % (Auto) (0-2) % Neut # (Auto) (2582-2142) /uL Sodium (137-145) mmol/L Potassium (3.4-5.1) mmol/L Chloride (98-107) mmol/L Carbon Dioxide (22-32) mmol/L BUN (7-17) mg/dL Creatinine (0.52-1.04) mg/dL Estimated GFR (>60) mL/min BUN/Creatinine Ratio (6-22) Glucose (80-110) mg/dL Lactate 0.7 (0.7-2.1) mmol/L Calcium (8.4-10.2) mg/dL Total Bilirubin (0.2-1.3) mg/dL AST (14-36) IU/L ALT (9-52) IU/L Alkaline Phosphatase (38-126) U/L Total Creatine Kinase (30-135) U/L CK-MB (CK-2) Troponin I (0.01-0.034) ng/mL Total Protein (6.3-8.2) g/dL Albumin (3.5-5.0) g/dL Globulin (1.7-4.1) g/dL Albumin/Globulin Ratio (1.0-2.8) Procalcitonin 0.24 (<0.5) ng/mL Urine Color Urine Appearance Urine pH (4.5-8.0) Ur Specific [place] (1.000-1.035) Urine Protein (Negative) Urine Glucose (UA) (Normal) g/dL Urine Ketones (NEGATIVE) Urine Occult Blood (Negative) Urine Nitrate (Negative) Urine Bilirubin (NEGATIVE) Urine Urobilinogen (0.2) E.U./dL Ur Leukocyte Esterase (NEGATIVE) Urine RBC (0-5/HPF) Urine WBC (0-5/HPF) Urine Bacteria (None) Ur Culture Indicated? Micro UA Comment MDM Narrative Medical decision making narrative: Patient presents with mental status change in clearly has a UTI and acute renal failure which are likely contributing to her mental status change. She is of significant departure from her baseline as confirmed by family and healthcare providers Discharge Plan Departure Patient Disposition: Admitted As Inpatient Clinical Impression: Acute renal failure, Acute metabolic encephalopathy, Acute UTI Discharge Date/Time: 07/16/18 21:51 Interventions: ED Discharge Assessment Last Done: 07/16/18 21:50 Admit Date/Time: 07/16/18 21:02 Admit Provider: Hugo Nixon
[2018-07-17] MEDS: methylPREDNISolone 125 MG/2 ML VIAL 60 MG IV ×3 (06:07→19:46)
[2018-07-17 06:16] LABS: Add Manual Diff / Slide Review NO; Basophils Percent Auto 0.1 % (0-2); Hematocrit 30.2 % (36-46); Hemoglobin 10.6 g/dL (12.0-16.0); Lymphocytes Percent Auto 10.9 % (25-40); Mean Corpuscular Hemoglobin 31.9 PG (26-34); Mean Corpuscular Volume 91.2 fL (80-100); Monocytes Percent Auto 1.4 % (3-14); Neutrophils Absolute Auto 6300 /uL (3000-5900); Neutrophils Percent Auto 87.6 % (50-75); Platelet Count 201 X10^3/uL (150-400); Red Blood Cell Count 3.31 X10^6/uL (4.0-5.2); Red Cell Distribution Width 14.5 % (11.6-14.8); White Blood Cell Count 7.2 X10^3/uL (4.5-11.0)
[2018-07-17 06:26] LABS: BUN Creatinine Ratio 22.1 (6-22); Blood Urea Nitrogen 31 mg/dL (7-17); Calcium 8.3 mg/dL (8.4-10.2); Carbon Dioxide 19 mmol/L (22-32); Chloride 104 mmol/L (98-107); Estimated Glomerular Filt Rate 36.1 mL/min (>60); Glucose 134 mg/dL (80-110); HEMOLYSIS < 15 (0-50); Sodium 133 mmol/L (137-145)
--- NOTE | 2018-07-17 08:07 | PM.HP.1 ---
History of Present Illness Date Patient Seen: 07/17/18 Time Patient Seen: 08:07 Chief complaint: GLF, Hypotension Narrative: Patient is an 83-year-old female well known to me who recently lost her and has a pretty significant history of mood disorder with psychosis. Question whether this is been secondary to her steroids or whether this is a progression of natural disease. Patient was recently discharged and had been having trouble with urinary retention at last admission. She apparently had been doing well and Arteaga was discontinued primarily because her new residence was unable to manage a Arteaga catheter. Patient had had increasing retention apparently this is through mostly the emergency room doctor. Patient is unable to give clear history. Yesterday she has a tended and not alert much change in her usual interaction. She was complaining of no pain. No headaches. No visual symptoms no numbness or tingling. She is complaining of no abdominal pain. She was resulted transferred to emergency room. At that point she was not responsive except to deep pain. She was not focal. She was having no other changes. Apparently patient was having no nausea or vomiting or no other complaints. Just was suddenly much less interactive. 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 Patient has history of uterine prolapse mild was felt not to be needed of treatment. Patient today complains of no pain. She is awake and alert. She overall is has no complaints. She is not as awake as last time I saw her. Still somewhat sleepy Patient History Medical History Hypertension (Acute) Urinary retention (Acute) Family & Social History Social History: household members family Prior Living Arrangements Assisted Living Patient's recently . Does have good family support with sister in the area. No other changes. Safety & Behavioral: Feels Safe in Current Yes Environment Been Physically Hurt or No Threatened By a Person Suicidal Ideation Description None Suicide Plan Description No Plan Tobacco & Substance use: Smoking Status Never smoker alcohol intake frequency 0-2 drinks per day Substance Use Type does not use Meds Home Medications Medication Instructions Recorded Confirmed Type estradiol 1 mg PO QDAY #0 01/31/04 06/14/18 History carvedilol [Coreg] 12.5 mg PO BID #0 11/12/16 06/14/18 History prednisone 20 mg PO DAILY #0 05/03/17 06/14/18 History sodium bicarbonate 650 mg PO BID #0 05/03/17 06/14/18 History potassium chloride [Klor-Con M20] 20 meq PO BIDCC #0 09/19/17 06/14/18 History zdiqimpt-yns-VC-lycopen-lutein 1 tab PO DAILY 06/14/18 06/14/18 History [Centrum Silver] acetaminophen 650 mg PO Q6HR PRN #60 tab 06/20/18 Rx calcium carbonate 1,000 mg PO Q4HR PRN #100 tab 06/20/18 Rx magnesium hydroxide [Milk of 30 ml PO DAILY PRN #100 ml 06/20/18 Rx Magnesia] quetiapine 100 mg tablet 100 mg PO BEDTIME 30 Days #30 tab 07/10/18 Rx quetiapine 25 mg tablet 25 mg PO BID PRN 30 Days #60 tab 07/10/18 Rx Allergies Allergy/AdvReac Type Severity Reaction Status Date / Time ascorbic acid Allergy Unknown Verified 06/14/18 11:44 aspirin [ASPIRIN] Allergy Unknown CHILDHOOD Verified 06/14/18 11:44 RX. Review of Systems Review of Systems All systems reviewed & are unremarkable except as noted in HPI and below Exam Vital Signs (past 8 hours): - 07/17/18 00:20 07/17/18 05:05 Temperature 96.3 F L 98.1 F Pulse Rate 60 Respiratory Rate 12 20 Blood Pressure 135/72 H 154/71 H Pulse Oximetry 95 98 Oxygen Delivery Method Room Air Narrative Exam Narrative: She is an alert fatigued female who does know I a.m.. Interactive and appropriate this morning. Skin is without rash turgor is improved from what was described last night. Mucous membranes mildly dry. Eyes are unremarkable. No oropharynx abnormality. Neck supple without adenopathy JVD or bruits. Lungs are clear. Heart regular rate and rhythm. Abdomen is soft positive bowel sounds nontender. Extremities without edema cyanosis clubbing. Normal range of motion. Neurologic exam patient is alert at least 9:00 p.m. she does not know the date. She does know that she is in the hospital she has normal cranial nerves normal reflexes motor appears stable did not walk her today. Psychologically patient is interactive but tired not as alert as she has been on previous exams Objective Labs Result Diagrams: 07/17/18 05:39 07/17/18 05:39 Labs: Laboratory Results - last 24 hr 07/16/18 07/16/18 07/16/18 18:00 18:00 19:10 WBC 9.9 RBC 3.56 L Hgb 11.3 L Hct 32.7 L MCV 91.8 MCH 31.8 MCHC 34.7 RDW 13.9 Plt Count 211 Neut % (Auto) 83.7 H Lymph % (Auto) 13.0 L [place] % (Auto) 2.8 L Eos % (Auto) 0.0 L Baso % (Auto) 0.5 Neut # (Auto) 8300 H Sodium 126 L Potassium 4.2 Chloride 94 L Carbon Dioxide 22 BUN 38 H Creatinine 1.90 H Estimated GFR 25.4 L BUN/Creatinine Ratio 20.0 Glucose 213 H Lactate Calcium 8.7 Total Bilirubin 0.6 AST 22 ALT 26 Alkaline Phosphatase 56 Total Creatine Kinase < 20 L CK-MB (CK-2) TNP Troponin I 0.070 H Total Protein 6.3 Albumin 3.6 Globulin 2.7 Albumin/Globulin Ratio 1.3 Procalcitonin Urine Color Yellow Urine Appearance Cloudy Urine pH 8.0 Ur Specific [place] 1.010 Urine Protein 1+ H Urine Glucose (UA) Negative Urine Ketones 1+ H Urine Occult Blood 3+ H Urine Nitrate Negative Urine Bilirubin Negative Urine Urobilinogen 0.2 Ur Leukocyte Esterase 3+ H Urine RBC None seen Urine WBC >100/hpf H Urine Bacteria Many (>30) H Ur Culture Indicated? Specimen cultured Micro UA Comment Not Reportable 07/16/18 07/16/18 07/17/18 21:06 Unknown 05:39 WBC 7.2 RBC 3.31 L Hgb 10.6 L Hct 30.2 L MCV 91.2 MCH 31.9 MCHC 35.0 RDW 14.5 Plt Count 201 Neut % (Auto) 87.6 H Lymph % (Auto) 10.9 L [place] % (Auto) 1.4 L Eos % (Auto) 0.0 L Baso % (Auto) 0.1 Neut # (Auto) 6300 H Sodium Potassium Chloride Carbon Dioxide BUN Creatinine Estimated GFR BUN/Creatinine Ratio Glucose Lactate 0.7 Calcium Total Bilirubin AST ALT Alkaline Phosphatase Total Creatine Kinase CK-MB (CK-2) Troponin I Total Protein Albumin Globulin Albumin/Globulin Ratio Procalcitonin 0.24 Urine Color Urine Appearance Urine pH Ur Specific [place] Urine Protein Urine Glucose (UA) Urine Ketones Urine Occult Blood Urine Nitrate Urine Bilirubin Urine Urobilinogen Ur Leukocyte Esterase Urine RBC Urine WBC Urine Bacteria Ur Culture Indicated? Micro UA Comment 07/17/18 05:39 WBC RBC Hgb Hct MCV MCH MCHC RDW Plt Count Neut % (Auto) Lymph % (Auto) [place] % (Auto) Eos % (Auto) Baso % (Auto) Neut # (Auto) Sodium 133 L Potassium 4.0 Chloride 104 Carbon Dioxide 19 L BUN 31 H Creatinine 1.40 H Estimated GFR 36.1 L BUN/Creatinine Ratio 22.1 H Glucose 134 H Lactate Calcium 8.3 L Total Bilirubin AST ALT Alkaline Phosphatase Total Creatine Kinase CK-MB (CK-2) Troponin I Total Protein Albumin Globulin Albumin/Globulin Ratio Procalcitonin Urine Color Urine Appearance Urine pH Ur Specific [place] Urine Protein Urine Glucose (UA) Urine Ketones Urine Occult Blood Urine Nitrate Urine Bilirubin Urine Urobilinogen Ur Leukocyte Esterase Urine RBC Urine WBC Urine Bacteria Ur Culture Indicated? Micro UA Comment Assessment & Plan Plan: Assessment/Plan Narrative: Hypotension. Appears to be improved with IV fluids. Will follow. Difficult to tell whether this is urosepsis or just secondary to decreased p.o. intake. We will see how she responds to fluid. UTI. Does not appear to be definitively septic. I suspect she is dehydrated and that is why her blood pressure was down white count is stable and she does not have a fever. Will continue Rocephin for now until we get cultures and follow. History of urinary retention. Etiology is unclear. Has been I think a longstanding issue. I do not see a medication that is causing it. Will continue Arteaga for 2 days and then discontinue and see if she retains if not she will need Arteaga and Urology appointment. Sadly unable to do at this institution. Will need to do as outpatient Metabolic encephalopathy. Seems to be improved. I suspect this was a combination of UTI dehydration and her mood disorder. At this point she seems to be improved but not back to baseline. Numbers look better. We will see how things go. Continue fluid hydration and treatment of her UTI. I do not think this is central or focal. Renal failure autoimmune. Acute on chronic. Probably more and dehydration than anything else and the situation. Seems to be improved. We will see how she goes to baseline with hydration. Will increase her steroids mildly for both stress coverage and covering her renal situation. Will go back to oral tomorrow if things are stable Mood disorder with history of psychosis. Overall stable. Will continue her usual medicines. Dehydration. Fluid given hydration given will follow. Re-evaluate eyes and nose tomorrow on see how she is taking intake. History of swallowing dysfunction. I think she is doing okay will go to full liquids right now will see how she tolerates that. May need speech evaluation. Hyponatremia. Seems to be improving with hydration. Will follow. History of hypogammaglobulinemia. Stable at this time. Elevation in troponin. I suspect this is secondary to her renal failure will see how that treatment goes and follow. I do not think she has had a cardiac event. GI prophylaxis I do not think we need to institute this time. DVT prophylaxis will place on Lovenox. Disposition. She will be at least 3 days. Two days of antibiotics will get her cultures and decide on where we are at. As long as things are stable need to discontinue Arteaga and see how she does at least 1 full day. Will follow. Discussed with social service
[2018-07-17] MEDS: SODIUM CHLORIDE 0.45% 1,000 ML 125 ML IV (09:11)
[2018-07-17] MEDS: ENOXAPARIN 30 MG/0.3 ML SYRINGE SUBCUT (09:12)
[2018-07-17] MEDS: QUETIAPINE 25 MG TABLET PO (09:12)
--- NOTE | 2018-07-17 09:38 | PC.NURSE ---
Addendum entered by Jacob Morrell R.N. 07/17/18 14:30: DR. RIOS NOTIFIED THAT PATIENT HAS NOT STOPPED HER REPETATIVE CAN YOU HELP ME EVEN W/ 1:1 OBSERVATION OVER THE LAST HOUR. SHE HAS CONTINUED WITH THIS BEHAVIOR, AND PANIC LEVEL ALL SHIFT. REQUESTED DR. RIOS CONSULT DR. WILCOX. HE STATES THAT HE WILL WORK ON THAT. Original Note: PATIENT CALLS OUT CAN YOU HELP ME REPETATIVELY, I'M SO SCARED, CAN YOU HELP ME? AM I OK NOW? PATIENT IS INCONSOLABLE. ASSISTED TO BSC FOR BM. HAD 3 SMALL HARD STOOLS THE SIZE OF A GOLF BALL. THIS MICROFILM MOUNTER REMAINS IN RM WITH PATIENT CONSTANTLY REPEATING THE ABOVE, VERBAL REASSURANCE OFFERED TO NO AVAIL. ASSIST TO RECLINER W/ CHAIR ALARM IN PLACE. GIVEN MORE APPLESAUCE. THOMAS DRAINING W/ PURULENT CLOUDY URINE.
--- NOTE | 2018-07-17 10:18 | CM.DANOTE ---
DCP: Case received, EMR reviewed and met with patient. Introduced self and role. DCP template completed with information currently available. Patient is an 83 year old patient who admitted yesterday to the care of the hospitalist team. PCP: Dr. Nixon. Payer: Medicare/[facility]. Patient carries diagnosis of Renal Failure, UTI, and Metabolic Encephalophy. Patient noted some anxiety and confusion when this case mgr entered room and introduced herself. recently . Dr. Nixon mentioned to this case mgr this morning that patient may be here for a few days. They may also remove gandara cath to assess if she truly has urinary retention. Patient has been residing at [facility]. P: DCP to continue to assess. Goal is for patient to return to [facility]. Message was left with Nadia at [facility]. Yaquelin Mathur RN/[employer] Home Lot Utility Worker
--- NOTE | 2018-07-17 11:25 | CM.DPC ---
DCP cont: Spoke to Carmencita at [facility]. Patient had been residing at [facility]. Had been at [facility] before, and then went to [facility]. Did confirm with Carmencita that they do have a bed for her if needed. P: DCP to continue to assess. If patient meets 3 day criteria, would qualify for [facility]. Yaquelin Mathur RN/Pals Nurse
[2018-07-17] MEDS: QUETIAPINE 100 MG TABLET PO ×2 (13:04→21:22)
[2018-07-17] MEDS: CITALOPRAM 20 MG TABLET PO (13:04)
[2018-07-17] MEDS: CEFTRIAXONE 2 GM/50 ML FROZ.PIGGY IV (19:49)
--- NOTE | 2018-07-17 22:51 | PC.NURSE ---
pt alert and oriented to self, place (hospital) and birthdate, frequently repeats self and very attention seeking. Will call out into [address] when anyone passes. VSS on RA, denies pain at all examinations. Arteaga draining to gravity, clear and yellow. iv antibiotics.
[2018-07-18] VITALS (7 sets, daily range): BP systolic 156–186; BP diastolic 72–95; PULSE 81–90; RESP 12–20; TEMP 36.3–36.8; O2SAT 94–100
--- NOTE | 2018-07-18 00:18 | PC.NURSE ---
Pulp Bleacher Note: 0000: Pt confused, re-orients well. Vital signs stable. Arteaga catheter patent and urine is clear yellow. Turned and repositioned: pt reluctantly agreed to turn, and blanchable redness to pressure areas noted when turned.
[2018-07-18 05:58] LABS: Hemoglobin 8.6 g/dL (12.0-16.0); Neutrophils Absolute Auto 6700 /uL (3000-5900); White Blood Cell Count 7.5 X10^3/uL (4.5-11.0)
[2018-07-18 06:10] LABS: Add Manual Diff / Slide Review NO; Lymphocytes Percent Auto 8.1 % (25-40); Mean Corpuscular Hemoglobin 32.3 PG (26-34); Mean Corpuscular Volume 92.1 fL (80-100); Monocytes Percent Auto 2.4 % (3-14); Neutrophils Percent Auto 89.5 % (50-75); Platelet Count 170 X10^3/uL (150-400); Red Blood Cell Count 2.68 X10^6/uL (4.0-5.2); Red Cell Distribution Width 14.4 % (11.6-14.8)
[2018-07-18 06:13] LABS: BUN Creatinine Ratio 20.9 (6-22); Blood Urea Nitrogen 23 mg/dL (7-17); Calcium 8.4 mg/dL (8.4-10.2); Carbon Dioxide 18 mmol/L (22-32); Chloride 112 mmol/L (98-107); Estimated Glomerular Filt Rate 47.7 mL/min (>60); Glucose 133 mg/dL (80-110); HEMOLYSIS < 15 (0-50); Potassium 3.6 mmol/L (3.4-5.1); Sodium 138 mmol/L (137-145)
[2018-07-18 06:14] LABS: Hematocrit 24.7 % (36-46)
[2018-07-18] MEDS: SODIUM CHLORIDE 0.9% 1,000 ML 125 ML IV (06:44)
[2018-07-18] MEDS: methylPREDNISolone 125 MG/2 ML VIAL 60 MG IV ×2 (06:49)
[2018-07-18] MEDS: ENOXAPARIN 30 MG/0.3 ML SYRINGE SUBCUT (08:15)
--- NOTE | 2018-07-18 08:38 | P.PN_ITS ---
Subjective Date Patient Seen: 07/18/18 Time Patient Seen: 08:30 Interval history: Patient more alert today. Feeling a little better. No real complaints. He is more alert. Just waking up. No other changes. Exam Vital Signs (past 8 hours): - 07/18/18 05:15 Temperature 97.6 F Pulse Rate 87 Respiratory Rate 12 Blood Pressure 157/77 H Pulse Oximetry 97 Oxygen Delivery Method Room Air Narrative Exam Narrative: Alert elderly female in no acute distress. Much less fatigued in appearance. More alert with questioning. Lungs are clear. Heart regular rate and rhythm. Abdomen is soft positive bowel sounds nontender. Extremities are normal. Neurologic exam is unremarkable. Psychologically she seems more appropriate is interactive certainly is smiling Objective Labs Result Diagrams: 07/18/18 05:23 07/18/18 05:23 Labs: Laboratory Results - last 24 hr 07/18/18 07/18/18 05:23 05:23 WBC 7.5 RBC 2.68 L Hgb 8.6 L Hct 24.7 L MCV 92.1 MCH 32.3 MCHC 35.0 RDW 14.4 Plt Count 170 Neut % (Auto) 89.5 H Lymph % (Auto) 8.1 L [place] % (Auto) 2.4 L Eos % (Auto) 0.0 L Baso % (Auto) 0.0 Neut # (Auto) 6700 H Sodium 138 Potassium 3.6 Chloride 112 H Carbon Dioxide 18 L BUN 23 H Creatinine 1.10 H Estimated GFR 47.7 L BUN/Creatinine Ratio 20.9 Glucose 133 H Calcium 8.4 EKG shows no acute changes Assessment & Plan Plan: Assessment/Plan Narrative: UTI. Enterobacter. Insensitive or at least moderately so to Rocephin. Will discontinue Rocephin sensitive to Bactrim. Will start that. Would like to use Levaquin but some question about issue with Seroquel. Seems to be stable. Should be okay with oral replacement. Will start today. Urinary retention. Will treat Arteaga 1 more day on UTI. Will pull Arteaga tomorrow. We will see if she retains over the 24 hr. If not then can be followed as outpatient if does retain will need Arteaga and outpatient Urology evaluation. Etiology is unclear. Anemia. Probably delusional. Will Hep-Lock IV. Guaiac stools. And re- evaluate tomorrow. Certainly no evidence of bleeding I can see. Clinically appears very stable. 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 Probably dehydration related. Seems to be much improved. Back to baseline. Will hold further hydration. Will discontinue IV Solu-Medrol and go to back to oral prednisone. Recheck a.m.. Metabolic encephalopathy. Much improved. We will see how she does today. He will go back to nighttime Seroquel. Follow-up after that. Dehydration. Appears to be resolved. Hep-Lock IV and follow. Suspect was secondary to illness. Mood disorder with history of psychosis improved. Appreciate Dr. Chen his input. Will follow. No change. History of swallowing dysfunction appears to be doing well will follow. History of hyponatremia stable. DVT prophylaxis on medication will follow. GI prophylaxis no need at this time. Disposition. Will follow mental status today. Will treat with Bactrim and pull Arteaga tomorrow. Will make sure anemia stable. Goal will be discharged on Monday if all is stable depending on what happens. Discussed with aquatics director
[2018-07-18] MEDS: SULFA/TRIMETH 800/160 (DS) TABLET 1 TAB PO ×2 (12:17→22:54)
[2018-07-18] MEDS: predniSONE 20 MG TABLET PO (12:17)
[2018-07-18] MEDS: QUETIAPINE 25 MG TABLET PO ×2 (14:25→18:19)
--- NOTE | 2018-07-18 14:27 | PM.CN ---
History of Present Illness Date Patient Seen: 07/18/18 Time Patient Seen: 13:30 Chief complaint: GLF, Hypotension Reason for consult: Confusion, continuity of care Requesting provider: Hugo Nixon Narrative: CC: ?I?m so happy to see you? HOSPITAL COURSE: Admitted by Dr. Nixon 07/17/18 for UTI & acute on chronic renal failure. She has been treated with antibiotics and started on IV Solu-Medrol, switched back to oral prednisone today. She has been quite anxious with some agitation during hospital stay. -: received quetiapine 100mg at 1300 (upon admission) and 2100, also received 25mg dose at 09:12. COLLATERAL FROM STAFF: Quite anxious & yelling out yesterday, seemed to have a calmer night last night. INTERVIEW: Initial attempt at interview at 7:30 a.m., patient was sleeping, and I elected to let her sleep. Saw patient about 1:30 pm, states that she was happy to see me and recognized me as Dr. Chen. She states she is feeling a little better, having difficulty getting soups her mouth, but mentions drinking both milk and Ensure and this is evidenced by half empty bottles on her tray. She mentions being very upset about her , not sure how to feel. She states that sometimes she feels that people do not check on her and off, and this is hard for her. She reports feeling comfortable in the hospital, states that she has been well taken care of. Denies hallucinations. [facility] Medical History Hypertension (Acute) Urinary retention (Acute) Social History household members: family Smoking Status: Never smoker Meds Home Medications Medication Instructions Recorded Confirmed Type estradiol 1 mg PO QDAY #0 02/01/04 07/17/18 History carvedilol [Coreg] 12.5 mg PO BID #0 11/12/16 07/17/18 History prednisone 20 mg PO DAILY #0 05/03/17 07/17/18 History sodium bicarbonate 650 mg PO BID #0 05/03/17 07/17/18 History potassium chloride [Klor-Con M20] 20 meq PO BIDCC #0 09/19/17 07/17/18 History dofhpsql-gmu-RH-lycopen-lutein 1 tab PO DAILY 06/14/18 07/17/18 History [Centrum Silver] acetaminophen 650 mg PO Q6HR PRN #60 tab 06/20/18 07/17/18 Rx calcium carbonate 1,000 mg PO Q4HR PRN #100 tab 06/20/18 07/17/18 Rx magnesium hydroxide [Milk of 30 ml PO DAILY PRN #100 ml 06/20/18 Rx Magnesia] quetiapine 100 mg tablet 100 mg PO BEDTIME 30 Days #30 tab 07/10/18 07/17/18 Rx quetiapine 25 mg tablet 25 mg PO BID PRN 30 Days #60 tab 07/10/18 07/17/18 Rx Allergies Allergy/AdvReac Type Severity Reaction Status Date / Time ascorbic acid Allergy Unknown Verified 06/14/18 11:44 aspirin [ASPIRIN] Allergy Unknown CHILDHOOD Verified 06/14/18 11:44 RX. Review of Systems Review of Systems unobtainable due to mental condition Exam Vital Signs (past 8 hours): - 07/18/18 07:00 07/18/18 08:00 07/18/18 12:00 Temperature 97.4 F L 97.8 F Pulse Rate 90 81 Respiratory Rate 18 20 Blood Pressure 186/95 H 165/76 H Pulse Oximetry 100 100 98 Oxygen Delivery Method Room Air Narrative Exam Narrative: MENTAL STATUS EXAM Appearance: Petite female with thinning white hair, covered with blanket Behavior: Calm, good eye contact, no psychomotor agitation or slowing, no overt tremor observed Gait: Not observed today Speech: normal volume & rate, easily interruptible Mood: ? ok ? Affect: euthymic, congruent, mildly irritable at times, normal range and reactivity Thought Process: linear, perseverative, goal-oriented Thought Content: Denies SI, no evidence of HI, no clear evidence of hallucinations, no evidence of paranoia today Attention: Distractible Orientation: grossly oriented to place, person, date, situation Memory: Some impairment, not formally tested Insight: Fair to Limited Judgment: fair to limited Objective Labs Result Diagrams: 07/18/18 05:23 07/18/18 05:23 Labs: Laboratory Results - last 24 hr 07/18/18 07/18/18 05:23 05:23 WBC 7.5 RBC 2.68 L Hgb 8.6 L Hct 24.7 L MCV 92.1 MCH 32.3 MCHC 35.0 RDW 14.4 Plt Count 170 Neut % (Auto) 89.5 H Lymph % (Auto) 8.1 L [place] % (Auto) 2.4 L Eos % (Auto) 0.0 L Baso % (Auto) 0.0 Neut # (Auto) 6700 H Sodium 138 Potassium 3.6 Chloride 112 H Carbon Dioxide 18 L BUN 23 H Creatinine 1.10 H Estimated GFR 47.7 L BUN/Creatinine Ratio 20.9 Glucose 133 H Calcium 8.4 Assessment & Plan (1) Unspecified mood [affective] disorder: Current visit: No Status: Acute (2) Acute metabolic encephalopathy: Current visit: Yes Status: Acute (3) Acute UTI: Current visit: Yes Status: Acute Plan: Assessment/Plan Narrative: ASSESSMENT: Silvina Pavon is an 83-year-old female, , with autoimmune renal disease, anemia, and hypergammaglobulinemia; known to me from outpatient clinic where I follow her for symptoms of mood and paranoia including episode in July likely precipitated by ongoing corticosteroid treatment. Quetiapine has been quite effective for her, with significant improvement in manic and paranoid symptoms, and we have maintained her on this medication at 100 mg dose each night. Silvina Cruz?s presentation today is consistent with past symptoms either with illness or medication change, and I believe represents some level of delirium. She is improving compared to yesterday, which likely reflects her improvement in her medical condition. QTc was not elevated, so we will continue to use quetiapine including as prn for agitation or anxiety in the context of delirium DIAGNOSES: Delirium, unspecified F05 Unspecified mood disorder F39 RECOMMENDATIONS: - Continue quetiapine 100mg PO QHS - Continue quetiapine 25mg PO BID prn severe anxiety or agitation - Stop citalopram on home medications, this has been stopped previously - Delirium precautions as you are doing including: > Minimize/avoid deliriogenic medications including: anticholinergic, opiates, benzodiazepines > Maintain hydration, oxygenation, nutrition > Normalize sleep/wake cycle as much as possible including access to natural light, minimize nighttime interruptions > Frequent re-orientation Thank you for involving me in this patient's care. I will plan to follow up on 07/19/18. Please contact me with questions or concerns at [phone]. Time Spent With Patient Time with patient: 25 - 35 minutes
--- NOTE | 2018-07-18 14:31 | P.CONS_ITS ---
History of Present Illness Date Patient Seen: 07/18/18 Time Patient Seen: 13:30 Chief complaint: GLF, Hypotension Reason for consult: Confusion, continuity of care Requesting provider: Hugo Nixon Narrative: CC: ?I?m so happy to see you? HOSPITAL COURSE: Admitted by Dr. Nixon 07/17/18 for UTI & acute on chronic renal failure. She has been treated with antibiotics and started on IV Solu-Medrol, switched back to oral prednisone today. She has been quite anxious with some agitation during hospital stay. -: received quetiapine 100mg at 1300 (upon admission) and 2100, also received 25mg dose at 09:12. COLLATERAL FROM STAFF: Quite anxious & yelling out yesterday, seemed to have a calmer night last night. INTERVIEW: Initial attempt at interview at 7:30 a.m., patient was sleeping, and I elected to let her sleep. Saw patient about 1:30 pm, states that she was happy to see me and recognized me as Dr. Chen. She states she is feeling a little better, having difficulty getting soups her mouth, but mentions drinking both milk and Ensure and this is evidenced by half empty bottles on her tray. She mentions being very upset about her , not sure how to feel. She states that sometimes she feels that people do not check on her and off, and this is hard for her. She reports feeling comfortable in the hospital, states that she has been well taken care of. Denies hallucinations. [facility] Medical History Hypertension (Acute) Urinary retention (Acute) Social History household members: family Smoking Status: Never smoker Meds Home Medications Medication Instructions Recorded Confirmed Type estradiol 1 mg PO QDAY #0 02/01/04 07/17/18 History carvedilol [Coreg] 12.5 mg PO BID #0 11/12/16 07/17/18 History prednisone 20 mg PO DAILY #0 05/03/17 07/17/18 History sodium bicarbonate 650 mg PO BID #0 05/03/17 07/17/18 History potassium chloride [Klor-Con M20] 20 meq PO BIDCC #0 09/19/17 07/17/18 History vguvbobx-ftb-FM-lycopen-lutein 1 tab PO DAILY 06/14/18 07/17/18 History [Centrum Silver] acetaminophen 650 mg PO Q6HR PRN #60 tab 06/20/18 07/17/18 Rx calcium carbonate 1,000 mg PO Q4HR PRN #100 tab 06/20/18 07/17/18 Rx magnesium hydroxide [Milk of 30 ml PO DAILY PRN #100 ml 06/20/18 Rx Magnesia] quetiapine 100 mg tablet 100 mg PO BEDTIME 30 Days #30 tab 07/10/18 07/17/18 Rx quetiapine 25 mg tablet 25 mg PO BID PRN 30 Days #60 tab 07/10/18 07/17/18 Rx Allergies Allergy/AdvReac Type Severity Reaction Status Date / Time ascorbic acid Allergy Unknown Verified 06/14/18 11:44 aspirin [ASPIRIN] Allergy Unknown CHILDHOOD Verified 06/14/18 11:44 RX. Review of Systems Review of Systems unobtainable due to mental condition Exam Vital Signs (past 8 hours): - 07/18/18 07:00 07/18/18 08:00 07/18/18 12:00 Temperature 97.4 F L 97.8 F Pulse Rate 90 81 Respiratory Rate 18 20 Blood Pressure 186/95 H 165/76 H Pulse Oximetry 100 100 98 Oxygen Delivery Method Room Air Narrative Exam Narrative: MENTAL STATUS EXAM Appearance: Petite female with thinning white hair, covered with blanket Behavior: Calm, good eye contact, no psychomotor agitation or slowing, no overt tremor observed Gait: Not observed today Speech: normal volume & rate, easily interruptible Mood: ? ok ? Affect: euthymic, congruent, mildly irritable at times, normal range and reactivity Thought Process: linear, perseverative, goal-oriented Thought Content: Denies SI, no evidence of HI, no clear evidence of hallucinations, no evidence of paranoia today Attention: Distractible Orientation: grossly oriented to place, person, date, situation Memory: Some impairment, not formally tested Insight: Fair to Limited Judgment: fair to limited Objective Labs Result Diagrams: 07/18/18 05:23 07/18/18 05:23 Labs: Laboratory Results - last 24 hr 07/18/18 07/18/18 05:23 05:23 WBC 7.5 RBC 2.68 L Hgb 8.6 L Hct 24.7 L MCV 92.1 MCH 32.3 MCHC 35.0 RDW 14.4 Plt Count 170 Neut % (Auto) 89.5 H Lymph % (Auto) 8.1 L [place] % (Auto) 2.4 L Eos % (Auto) 0.0 L Baso % (Auto) 0.0 Neut # (Auto) 6700 H Sodium 138 Potassium 3.6 Chloride 112 H Carbon Dioxide 18 L BUN 23 H Creatinine 1.10 H Estimated GFR 47.7 L BUN/Creatinine Ratio 20.9 Glucose 133 H Calcium 8.4 Assessment & Plan (1) Unspecified mood [affective] disorder: Current visit: No Status: Acute (2) Acute metabolic encephalopathy: Current visit: Yes Status: Acute (3) Acute UTI: Current visit: Yes Status: Acute Plan: Assessment/Plan Narrative: ASSESSMENT: Silvina Pavon is an 83-year-old female, , with autoimmune renal disease , anemia, and hypergammaglobulinemia; known to me from outpatient clinic where I follow her for symptoms of mood and paranoia including episode in July likely precipitated by ongoing corticosteroid treatment. Quetiapine has been quite effective for her, with significant improvement in manic and paranoid symptoms, and we have maintained her on this medication at 100 mg dose each night. Silvina Cruz?s presentation today is consistent with past symptoms either with illness or medication change, and I believe represents some level of delirium. She is improving compared to yesterday, which likely reflects her improvement in her medical condition. QTc was not elevated, so we will continue to use quetiapine including as prn for agitation or anxiety in the context of delirium DIAGNOSES: Delirium, unspecified F05 Unspecified mood disorder F39 RECOMMENDATIONS: - Continue quetiapine 100mg PO QHS - Continue quetiapine 25mg PO BID prn severe anxiety or agitation - Stop citalopram on home medications, this has been stopped previously - Delirium precautions as you are doing including: > Minimize/avoid deliriogenic medications including: anticholinergic, opiates, benzodiazepines > Maintain hydration, oxygenation, nutrition > Normalize sleep/wake cycle as much as possible including access to natural light, minimize nighttime interruptions > Frequent re-orientation Thank you for involving me in this patient's care. I will plan to follow up on 07/19/18. Please contact me with questions or concerns at [phone]. Time Spent With Patient Time with patient: 25 - 35 minutes
--- NOTE | 2018-07-18 14:49 | PC.NURSE ---
day shift pt denies pain. She was more calm today than yesterday for majority of day. did get anxious towards end of shift. she wanted to try and not take meds, however she was very anxious still after about 30 min. Pt agreed to take PRN seroquel which was provided. gandara is patent and draining clear yellow urine. Pt drinking ensure and had fruit, some soup but really does not like to eat much food other than ensure and honeydew melon. hourly rounding provided, call light within reach.
--- NOTE | 2018-07-18 17:12 | PC.NURSE ---
Addendum entered by Briana Amaya R.N. 07/18/18 22:37: Held 2100 medications because patient was resting (sleeping). Original Note: Addendum entered by Briana Amaya R.N. 07/18/18 18:23: Seroquel 25mg and 650mg Tylenol administered to pt. Patient is c/o lower back pain and is very anxious. Original Note: Addendum entered by Briana Amaya R.N. 07/18/18 18:10: Responded to pt climbing out of bed. Patient repeating, I dont know what to do. Helped pt get re-settled into bed. Patient keeps repeating, I need help, but when asked, pt unable to identify what she needs help with. I let the patient know she can rest to help fight her infection, pt responded with okay and relaxed into bed. Moments later, pt crying out for help and that she is scared and doesn't know what to do. Original Note: Addendum entered by Briana Amaya R.N. 07/18/18 17:30: When asked, the patient denied pain, but when pt got up to BSC, patient stated that, something is hurting my butt. When observed, skin was in tact and patient was unable to describe the pain further. Original Note: PM Shift Patient crying out, seems to have high anxiety, and accusing various staff of not helping her. Patient cursed and gave the middle finger to CLAY PROCESSING LABOURER as she walked out of the room. I assisted pt to BSC and she complained about the staff stating, no has been in here since this afternoon to help me. CLAY PROCESSING LABOURER was in prior to my visit and assisted pt in bed with warm blankets. Patient was able to tell me her name and the town, no other information was relayed due to patient talking about staff.
[2018-07-18] MEDS: ACETAMINOPHEN 325 MG TABLET 650 MG PO (18:19)
[2018-07-18] MEDS: QUETIAPINE 100 MG TABLET PO (22:55)
[2018-07-19] VITALS (11 sets, daily range): BP systolic 155–190; BP diastolic 77–92; PULSE 72–93; RESP 15–18; TEMP 35.7–36.7; O2SAT 95–99
[2018-07-19 05:13] LABS: Add Manual Diff / Slide Review NO; Basophils Percent Auto 0.3 % (0-2); Hematocrit 25.6 % (36-46); Lymphocytes Percent Auto 7.9 % (25-40); Mean Corpuscular Hemoglobin 32.2 PG (26-34); Mean Corpuscular Volume 92.1 fL (80-100); Monocytes Percent Auto 3.2 % (3-14); Neutrophils Absolute Auto 9600 /uL (3000-5900); Neutrophils Percent Auto 88.6 % (50-75); Platelet Count 182 X10^3/uL (150-400); Red Blood Cell Count 2.78 X10^6/uL (4.0-5.2); Red Cell Distribution Width 14.4 % (11.6-14.8); White Blood Cell Count 10.8 X10^3/uL (4.5-11.0)
[2018-07-19 05:21] LABS: BUN Creatinine Ratio 26.4 (6-22); Blood Urea Nitrogen 29 mg/dL (7-17); Calcium 8.7 mg/dL (8.4-10.2); Carbon Dioxide 21 mmol/L (22-32); Chloride 106 mmol/L (98-107); Estimated Glomerular Filt Rate 47.7 mL/min (>60); Glucose 118 mg/dL (80-110); HEMOLYSIS < 15 (0-50); Potassium 3.7 mmol/L (3.4-5.1); Sodium 135 mmol/L (137-145)
--- NOTE | 2018-07-19 07:30 | PC.NURSE ---
nichol vilchis at 0720.
--- NOTE | 2018-07-19 08:17 | P.PN_ITS ---
Subjective Date Patient Seen: 07/19/18 Time Patient Seen: 08:11 Interval history: Overall doing well. No major new complaints. Alert and oriented. More anxious this morning. Arteaga was discontinued at shift change. Exam Vital Signs (past 8 hours): - 07/19/18 00:15 07/19/18 01:20 07/19/18 04:58 Temperature 97.9 F 97.7 F Pulse Rate 74 80 Respiratory Rate 15 17 Blood Pressure 170/91 H 155/77 H Pulse Oximetry 98 98 97 Oxygen Delivery Method Room Air Narrative Exam Narrative: Alert interactive mildly anxious female no acute distress. Lungs are clear. Heart regular rate and rhythm. Abdomen is soft positive bowel sounds nontender. Objective Labs Result Diagrams: 07/19/18 05:02 07/19/18 05:02 Labs: Laboratory Results - last 24 hr 07/19/18 07/19/18 05:02 05:02 WBC 10.8 RBC 2.78 L Hgb 9.0 L Hct 25.6 L MCV 92.1 MCH 32.2 MCHC 35.0 RDW 14.4 Plt Count 182 Neut % (Auto) 88.6 H Lymph % (Auto) 7.9 L [place] % (Auto) 3.2 Eos % (Auto) 0.0 L Baso % (Auto) 0.3 Neut # (Auto) 9600 H Sodium 135 L Potassium 3.7 Chloride 106 Carbon Dioxide 21 L BUN 29 H Creatinine 1.10 H Estimated GFR 47.7 L BUN/Creatinine Ratio 26.4 H Glucose 118 H Calcium 8.7 Assessment & Plan Plan: Assessment/Plan Narrative: Anemia. Appears to be stable. Probably mostly delusional guaiac negative. We will draw iron labs could be dietary. We will see how things go. Follow as outpatient. Does not appear to be acutely bleeding. Urinary retention. Arteaga was discontinued today will see the next 24 hr brings. If she has retention will need Arteaga placed. Will need to see outpatient urology services. Certainly do not have access here. Will depend on the next 24 hr. I feel the most likely this represents retention but will see how things go ideology is unclear. Last time Dr. Loredo saw patient she did not feel uterine prolapse was cause. UTI. On antibiotics. White count stable no fever. Will finish 7 more days of treatment follow-up urine as outpatient. Acute on chronic renal failure stable. Much improved. Probably secondary to dehydration or pre renal syndrome. Autoimmune renal disease. Seems to be stable. Creatinine is improved we will continue p.o. steroids follow up with head men's tennis coach as scheduled. Metabolic encephalopathy. Appears to be resolved. Probable combination of dehydration and infection. We will follow. Dehydration. Resolved. Mood disorder with history of psychosis probably back to baseline. Appreciate Dr. Chen input. No change in medicines at this time will follow. DVT prophylaxis on Lovenox. GI prophylaxis is stable at this time. Not needed. Disposition. Should be ready for transfer tomorrow depending on whether she needs Arteaga or not will potentially affect discharge location. Will follow re- evaluate in a.m..
[2018-07-19 08:56] LABS: Reticulocyte Count, Percent 1.1 % (1.06-2.63)
[2018-07-19 09:21] LABS: HEMOLYSIS < 15 (0-50); Iron 113 ug/dL (37-170)
[2018-07-19 09:33] LABS: Percent Iron Saturation 50 % (15-50); Total Iron Binding Capacity 224 ug/dL (265-497); Transferrin 204 mg/dL (206-381)
[2018-07-19] MEDS: predniSONE 20 MG TABLET PO (09:38)
[2018-07-19] MEDS: ENOXAPARIN 30 MG/0.3 ML SYRINGE SUBCUT (09:38)
[2018-07-19] MEDS: SULFA/TRIMETH 800/160 (DS) TABLET 1 TAB PO (09:40)
--- NOTE | 2018-07-19 15:24 | PC.NURSE ---
Jean Claudeey placed per MD order due to retention.
--- NOTE | 2018-07-19 15:56 | CM.DPC ---
DCP: continued: case received for first time, EMR reviewed and spoke this morning with Dr. Nixon. He noted that pt would be trialed on gandara out and void. He anticipated pt could go back to [facility] tomorrow is all went well or if [facility] could accept pt with gandara in place. Spoke then with Aggie/[facility]IL[facility] DNS. She confirmed that [facility] could manage a gandara without concern and expects to accept pt back when stable for same. Will followup tomorrow.
--- NOTE | 2018-07-19 17:46 | PM.CN ---
History of Present Illness Date Patient Seen: 07/19/18 Time Patient Seen: 07:30 Chief complaint: GLF, Hypotension Reason for consult: medication management, continuity of care Requesting provider: Hugo Nixon Narrative: Staff report: -some sleep overnight, continues to show improvement compared to initial days of hospitalization. Response to frequent reassurance. -fully pulled this morning, will monitor ability to urinate Interview: Saw pt in f/u this morning. She is eating pudding with staff member when I arrive. She reports feeling okay this morning, not great. Happy to see this provider. Denies anything frightening in the hospital, but feels worried at times. [facility] Medical History Hypertension (Acute) Urinary retention (Acute) Social History household members: family Smoking Status: Never smoker Meds Home Medications Medication Instructions Recorded Confirmed Type estradiol 1 mg PO QDAY #0 02/01/04 07/17/18 History carvedilol [Coreg] 12.5 mg PO BID #0 11/12/16 07/17/18 History prednisone 20 mg PO DAILY #0 05/03/17 07/17/18 History sodium bicarbonate 650 mg PO BID #0 05/03/17 07/17/18 History potassium chloride [Klor-Con M20] 20 meq PO BIDCC #0 09/19/17 07/17/18 History fyviddpd-wwx-LE-lycopen-lutein 1 tab PO DAILY 06/14/18 07/17/18 History [Centrum Silver] acetaminophen 650 mg PO Q6HR PRN #60 tab 06/20/18 07/17/18 Rx calcium carbonate 1,000 mg PO Q4HR PRN #100 tab 06/20/18 07/17/18 Rx magnesium hydroxide [Milk of 30 ml PO DAILY PRN #100 ml 06/20/18 Rx Magnesia] quetiapine 100 mg tablet 100 mg PO BEDTIME 30 Days #30 tab 07/10/18 07/17/18 Rx quetiapine 25 mg tablet 25 mg PO BID PRN 30 Days #60 tab 07/10/18 07/17/18 Rx Allergies Allergy/AdvReac Type Severity Reaction Status Date / Time ascorbic acid Allergy Unknown Verified 06/14/18 11:44 aspirin [ASPIRIN] Allergy Unknown CHILDHOOD Verified 06/14/18 11:44 RX. Review of Systems Constitutional Constitutional: Reports difficulty sleeping and Reports poor appetite Neurologic Neurologic: Reports behavioral changes Psychiatric Psychiatric: Reports anxiety, Reports behavioral changes and Denies visual hallucinations Exam Vital Signs (past 8 hours): - 07/19/18 13:53 07/19/18 15:00 07/19/18 16:13 Temperature 98.0 F 96.3 F L Pulse Rate 80 93 H Respiratory Rate 16 18 Blood Pressure 181/79 H 187/87 H Pulse Oximetry 98 95 99 Oxygen Delivery Method Room Air Narrative Exam Narrative: MENTAL STATUS EXAM Appearance: Petite female with thinning white hair, covered with blanket Behavior: Calm, good eye contact, no psychomotor agitation or slowing, no overt tremor observed Gait: Not observed today Speech: normal volume & rate, easily interruptible Mood: ? ok ? Affect: anxious, constricted Thought Process: linear, perseverative, goal-oriented Thought Content: Denies SI, no evidence of HI, no clear evidence of hallucinations, no evidence of paranoia today Attention: Distractible Orientation: grossly oriented to place, person, date, situation Memory: Some impairment, not formally tested Insight: Fair to Limited Judgment: limited Objective Labs Result Diagrams: 07/19/18 05:02 07/19/18 05:02 Labs: Laboratory Results - last 24 hr 07/19/18 07/19/18 07/19/18 05:02 05:02 05:02 WBC 10.8 RBC 2.78 L Hgb 9.0 L Hct 25.6 L MCV 92.1 MCH 32.2 MCHC 35.0 RDW 14.4 Plt Count 182 Neut % (Auto) 88.6 H Lymph % (Auto) 7.9 L [place] % (Auto) 3.2 Eos % (Auto) 0.0 L Baso % (Auto) 0.3 Neut # (Auto) 9600 H Percent Retic Sodium 135 L Potassium 3.7 Chloride 106 Carbon Dioxide 21 L BUN 29 H Creatinine 1.10 H Estimated GFR 47.7 L BUN/Creatinine Ratio 26.4 H Glucose 118 H Calcium 8.7 Iron TIBC % Saturation Transferrin Ferritin 675.0 H 07/19/18 07/19/18 05:02 08:53 WBC RBC Hgb Hct MCV MCH MCHC RDW Plt Count Neut % (Auto) Lymph % (Auto) [place] % (Auto) Eos % (Auto) Baso % (Auto) Neut # (Auto) Percent Retic 1.1 Sodium Potassium Chloride Carbon Dioxide BUN Creatinine Estimated GFR BUN/Creatinine Ratio Glucose Calcium Iron 113 TIBC 224 L % Saturation 50 Transferrin 204 L Ferritin Assessment & Plan (1) Unspecified mood [affective] disorder: Current visit: No Status: Acute (2) Acute metabolic encephalopathy: Current visit: Yes Status: Acute (3) Acute UTI: Current visit: Yes Status: Acute Plan: Assessment/Plan Narrative: ASSESSMENT: Silvina Pavon is an 83-year-old female, , with autoimmune renal disease, anemia, and hypergammaglobulinemia; known to me from outpatient clinic where I follow her for symptoms of mood and paranoia including episode in July likely precipitated by ongoing corticosteroid treatment. Quetiapine has been quite effective for her, with significant improvement in manic and paranoid symptoms, and we have maintained her on this medication at 100 mg dose each night. Silvina Cruz?s presentation today is consistent with past symptoms either with illness or medication change, and I believe represents some level of delirium. She is improving compared to admission, which likely reflects her improvement in her medical condition. QTc was not elevated, so we will continue to use quetiapine including as prn for agitation or anxiety in the context of delirium. No changes today, appreciate team's reassurance for this patient who can have significant anxiety & irritability at times. DIAGNOSES: Delirium, unspecified F05 Unspecified mood disorder F39 RECOMMENDATIONS: - Continue quetiapine 100mg PO QHS - Continue quetiapine 25mg PO BID prn severe anxiety or agitation - Delirium precautions as you are doing including: > Minimize/avoid deliriogenic medications including: anticholinergic, opiates, benzodiazepines > Maintain hydration, oxygenation, nutrition > Normalize sleep/wake cycle as much as possible including access to natural light, minimize nighttime interruptions > Frequent re-orientation Thank you for involving me in this patient's care. I will be out of the office until Monday07/24/18, and will plan to follow up with patient at that time if she is still in the hospital. Please contact me with questions or concerns at [phone]. Time Spent With Patient Time with patient: less than 15 minutes
--- NOTE | 2018-07-19 22:52 | PC.NURSE ---
PM shift Pt is alert and forgetful, suspicious of this RN for meds, refusing HS. Will reapproach. Arteaga in place, good output this shift.
[2018-07-20] VITALS (8 sets, daily range): BP systolic 161–195; BP diastolic 80–95; PULSE 77–97; RESP 18–20; TEMP 36.3–36.7; O2SAT 94–100
[2018-07-20] MEDS: SULFA/TRIMETH 800/160 (DS) TABLET 1 TAB PO ×3 (01:26→21:29)
[2018-07-20] MEDS: QUETIAPINE 100 MG TABLET PO ×2 (01:26→21:29)
[2018-07-20] MEDS: SODIUM CHLORIDE 0.45% 1,000 ML 125 ML IV (05:53)
[2018-07-20 06:18] LABS: Blood Urea Nitrogen 27 mg/dL (7-17); Carbon Dioxide 26 mmol/L (22-32); Chloride 101 mmol/L (98-107); Estimated Glomerular Filt Rate 53.2 mL/min (>60); Glucose 84 mg/dL (80-110); Potassium 3.8 mmol/L (3.4-5.1); Sodium 135 mmol/L (137-145)
[2018-07-20 06:19] LABS: HEMOLYSIS 51 (0-50)
[2018-07-20 06:22] LABS: Basophils Percent Auto 0.7 % (0-2); Eosinophils Percent Auto 0.6 % (2-4); Hemoglobin 10.4 g/dL (12.0-16.0); Mean Corpuscular HGB Conc 34.6 % (30-36); Mean Corpuscular Hemoglobin 31.5 PG (26-34); Mean Corpuscular Volume 91.1 fL (80-100); Neutrophils Absolute Auto 7900 /uL (3000-5900); Neutrophils Percent Auto 80.7 % (50-75); Platelet Count 161 X10^3/uL (150-400); Red Blood Cell Count 3.29 X10^6/uL (4.0-5.2); Red Cell Distribution Width 14.5 % (11.6-14.8); White Blood Cell Count 9.8 X10^3/uL (4.5-11.0)
[2018-07-20 06:26] LABS: Add Manual Diff / Slide Review SLIDE REVIEW
[2018-07-20 07:03] LABS: RBC Morphology Normal Morphology
[2018-07-20] MEDS: ENOXAPARIN 30 MG/0.3 ML SYRINGE SUBCUT (09:01)
[2018-07-20] MEDS: predniSONE 20 MG TABLET PO (09:02)
[2018-07-20] MEDS: QUETIAPINE 25 MG TABLET PO (12:16)
--- NOTE | 2018-07-20 15:23 | CM.DPC ---
DCP. Continued: EMR reviewed and Dr. Oviedo psychiatric consult of last even is noted. She follows pt in the outpt setting. Dr. Mercado arrived this afternoon to see pt and confirmed that she would be keeping pt overnight and, if stable, would go back to [facility] tomorrow with the gandara in place. DCP team will need to check in again with Aggie/ADILSON DNS for final acceptance and specifics of their admission order process/protocol. Her cell: [phone]
[2018-07-20] MEDS: SODIUM CHLORIDE 0.9% FLUSH 10 ML IV (21:29)
[2018-07-21] VITALS: O2SAT 99
[2018-07-21 00:47] VITALS: BP 184/80; PULSE 89; RESP 18; TEMP 36.4; O2SAT 99
[2018-07-21 07:25] VITALS: BP 159/85; PULSE 84; RESP 20; TEMP 36.3; O2SAT 98
[2018-07-21 07:43] LABS: BUN Creatinine Ratio 25.5 (6-22); Blood Urea Nitrogen 28 mg/dL (7-17); Carbon Dioxide 27 mmol/L (22-32); Chloride 99 mmol/L (98-107); Estimated Glomerular Filt Rate 47.7 mL/min (>60); Glucose 79 mg/dL (80-110); HEMOLYSIS < 15 (0-50); Potassium 3.9 mmol/L (3.4-5.1); Sodium 133 mmol/L (137-145)
[2018-07-21 07:46] LABS: Hematocrit 29.9 % (36-46); Hemoglobin 10.5 g/dL (12.0-16.0); Mean Corpuscular HGB Conc 35.2 % (30-36); Mean Corpuscular Volume 91.1 fL (80-100); Platelet Count 218 X10^3/uL (150-400); Red Blood Cell Count 3.28 X10^6/uL (4.0-5.2); White Blood Cell Count 8.1 X10^3/uL (4.5-11.0)
[2018-07-21 07:48] LABS: Add Manual Diff / Slide Review YES
[2018-07-21 08:25] LABS: Neutrophils Absolute Manual 5346 /uL (3000-5900); Total Cells Counted 100
[2018-07-21 08:27] LABS: RBC Morphology Normal Morphology
[2018-07-21] MEDS: predniSONE 20 MG TABLET PO (10:13)
[2018-07-21] MEDS: ENOXAPARIN 30 MG/0.3 ML SYRINGE SUBCUT (10:13)
[2018-07-21] MEDS: SODIUM CHLORIDE 0.9% FLUSH 10 ML IV (10:14)
[2018-07-21] MEDS: SULFA/TRIMETH 800/160 (DS) TABLET 1 TAB PO (10:14)
[2018-07-21] MEDS: QUETIAPINE 25 MG TABLET PO (10:29)
--- NOTE | 2018-07-21 10:47 | CM.DPC ---
DCP Cont: Called and spoke to Aggie at [facility]. Stated that she came in yesterday and briefly assessed patient. She stated that patient would be able to go back to [facility]. Updated charge nurse today. Awaiting to come in and see patient for discharge orders. P: Patient is to return to [facility]. Will continue to follow up with Dr. Chen at behavioral health as well. Yaquelin Mathur RN/Lock Plater
[2018-07-21 10:51] VITALS: O2SAT 97
--- NOTE | 2018-07-21 11:42 | PC.NURSE ---
Addendum entered by Airam Tidwell R.N. 07/21/18 14:51: D/C- IV dc'd intact. All belongings sent with patient. D/C packet given to [facility] staff. Report called to Frieda at [facility]. Assisted patient into wheelchair and she was taken out via wheelchair. Original Note: Shift summary: Awake intermittently. Oriented to self and hospital. Intermittently anxious, but can be reassured and/or redirected fairly easily. Denies pain or discomfort. Lungs CTA, SpO2 on Ra 97%. HRR. VSS. Sounds like plan is for her to transfer back to [facility] today, waiting for Dr Mercado to make her rounds. Patient resting quietly in bed now. Light in reach, door open, bed alarm on.
--- NOTE | 2018-07-21 12:18 | CM.DPC ---
DCP Cont: Spoke to Dr. Costello today. Let her know that [facility] would accept patient with fole, since Aggie already stated this. Dr. Mercado will write discharge orders. P: Will DC to [facility], after discharge orders are complete. Yaquelin Mathur RN/Hospice Superintendent
--- NOTE | 2018-07-21 13:03 | PM.PN.1 ---
Subjective Date Patient Seen: 07/20/18 Time Patient Seen: 13:04 Interval history: Patient with increased anxiety today was given an additional dose of Seroquel. Arteaga catheter was replaced yesterday after attempts at urination for approximately [address] Nixon plan was to continue the Arteaga catheter on discharge until the urinary tract infection is treated and have outpatient follow-up with Urology. The patient is feeling much better but is very anxious to go to skilled care facility where she previously resided today because she is still feeling that she is getting back on her feet. She is working with physical therapy is still unsteady. She denies any chest pain or shortness of breath Review of systems 12 point is negative other than anxiety and urinary retention now with Arteaga catheter in place Negative for hallucinations. Negative for headaches. Negative for visual changes. Negative for chest pain. Negative for shortness of breath. Negative for constipation. Exam Vital Signs (past 8 hours): - 07/21/18 07:25 07/21/18 10:51 Temperature 97.4 F L Pulse Rate 84 Respiratory Rate 20 Blood Pressure 159/85 H Pulse Oximetry 98 97 Oxygen Delivery Method Room Air Oxygen Flow Rate 0 Narrative Exam Narrative: Alert and oriented x3. Recognizes me. Asked me about my previous physician partner who is not practiced in [facility] for over 10 years. HEENT: Mucous membranes dry Neck: Supple without adenopathy or thyromegaly Chest: Clear to auscultation without wheezes rhonchi or crackles Cor: Regular rate and rhythm without murmur Abdomen: Positive bowel sounds x4. No guarding, no rebound tenderness, no hepatosplenomegaly Extremities: No edema, pulses intact, DTRs 2+ at patella Skin: No rashes Objective Labs Result Diagrams: 07/21/18 07:19 07/21/18 07:19 Labs: Laboratory Results - last 24 hr 07/21/18 07/21/18 07:19 07:19 WBC 8.1 RBC 3.28 L Hgb 10.5 L Hct 29.9 L MCV 91.1 MCH 32.0 MCHC 35.2 RDW 14.0 Plt Count 218 Neut % (Auto) Not Reportable Lymph % (Auto) Not Reportable [place] % (Auto) Not Reportable Eos % (Auto) Not Reportable Baso % (Auto) Not Reportable Total Counted 100 Seg Neutrophils % 63.0 Band Neutrophils % 3.0 Lymphocytes % (Manual) 20.0 L Atypical Lymphs % 3.0 H Monocytes % (Manual) 5.0 Metamyelocytes % 2.0 H Myelocytes % 4.0 H Neutrophils # (Manual) 5346 RBC Morphology Normal morphology Sodium 133 L Potassium 3.9 Chloride 99 Carbon Dioxide 27 BUN 28 H Creatinine 1.10 H Estimated GFR 47.7 L BUN/Creatinine Ratio 25.5 H Glucose 79 L Calcium 9.0 Assessment & Plan Plan: Assessment/Plan Narrative: 83-year-old female Assessment 1. Acute psychosis exacerbated by urinary tract infection improved with Seroquel and treatment of urinary tract infection Plan: Continue with the as needed Seroquel 25 mg. Continue with the scheduled 100 mg at HS. Will continue with antibiotics to treat urinary tract infection and will likely transfer back to [facility] tomorrow. Assessment 2. Urinary tract infection improved but still with urinary retention Plan: Continue Septra. Continue with Arteaga catheter until infection treated. Outpatient urology evaluation Assessment 3. Renal insufficiency improved Plan: Continue outpatient prednisone and follow up as scheduled with PCP, Dr. Nixon Assessment 4. Normocytic anemia Plan: Suspect delusional. Stable no acute blood loss obvious. Will continue to follow
--- NOTE | 2018-07-21 13:20 | PM.DS.1 ---
History of Present Illness Chief complaint: GLF, Hypotension Discharge Providers Date of admission: 07/16/18 21:02 Primary care physician: Hugo Nixon MD Consults: 07/17/18 17:22 Consult to Physician Routine Comment: per MD Nixon, he has contacted MD Chen Consulting Provider: Meri Chen Reason for consultation: evaluation Has provider been notified: Yes Discharge provider: Gardenia Mercado MD Summary Discharge Diagnosis: Acute psychosis Anxiety Dementia UTI Urinary retention Normocytic anemia Hypertension Hospital Course: Patient admitted to hospital with acute urinary retention, UTI and acute psychosis. She was started on IV antibiotics and Dr. Chen was consulted. She slowly and steadily improved with scheduled Seroquel 100 mg daily. Benzodiazepines were held as it was thought this was exacerbating her confusion. She was discharged back to [facility] where she previously resided with [place] catheter in place. She will have outpatient urology. She will have 5 more days of Septra. She will continue on her same outpatient medications. Status at Discharge Cognitive/behavioral status at discharge: Anxious but improved Functional status at discharge: uses cane/walker Overall status at discharge: patient is progressing back to baseline Time Spent with Patient Greater than 30 minutes Exam Vital Signs (past 8 hours): - 07/21/18 07:25 07/21/18 10:51 Temperature 97.4 F L Pulse Rate 84 Respiratory Rate 20 Blood Pressure 159/85 H Pulse Oximetry 98 97 Oxygen Delivery Method Room Air Oxygen Flow Rate 0 Narrative Exam Narrative: Alert and oriented x3, less anxious HEENT: Unremarkable Neck: Supple without adenopathy or thyromegaly Chest: Clear to auscultation bilaterally Cor: Regular rate and rhythm without murmur Abdomen: Positive bowel sounds, soft, nontender, nondistended Extremities: No edema, pulses intact DTRs intact Skin: No rash Objective Labs Result Diagrams: 07/21/18 07:19 07/21/18 07:19 Labs: Laboratory Results - last 24 hr 07/21/18 07/21/18 07:19 07:19 WBC 8.1 RBC 3.28 L Hgb 10.5 L Hct 29.9 L MCV 91.1 MCH 32.0 MCHC 35.2 RDW 14.0 Plt Count 218 Neut % (Auto) Not Reportable Lymph % (Auto) Not Reportable [place] % (Auto) Not Reportable Eos % (Auto) Not Reportable Baso % (Auto) Not Reportable Total Counted 100 Seg Neutrophils % 63.0 Band Neutrophils % 3.0 Lymphocytes % (Manual) 20.0 L Atypical Lymphs % 3.0 H Monocytes % (Manual) 5.0 Metamyelocytes % 2.0 H Myelocytes % 4.0 H Neutrophils # (Manual) 5346 RBC Morphology Normal morphology Sodium 133 L Potassium 3.9 Chloride 99 Carbon Dioxide 27 BUN 28 H Creatinine 1.10 H Estimated GFR 47.7 L BUN/Creatinine Ratio 25.5 H Glucose 79 L Calcium 9.0 Discharge Plan Discharge Plan Patient Disposition: Assisted Living Transfer to: [facility] Other facility: [facility] assisted living Under care of provider: Rufino Nixon Transportation: Wheelchair Consult as needed: Dental, Hearing, Mental health, Podiatry and Vision I certify the postop hospital care home care is medically necessary on a continuing basis for any conditions for which he/ she received care during this hospitalization.: Yes Discharge Med Rec/Prescriptions Discharge Orders: Discharge (Order); Ordered 07/21/18 Ordered By: Gardenia Mercado Discharge Health Status Precautions: [place] Provider Discharge Instructions Diet: Diet as Tolerated Liquid consistency: Normal/Thin Food texture: Regular Activity: as tolerated Catheter: 2-way [facility] Reason for rehabilitation: Other Rehab type: Physical therapy and Occupational therapy Discharge Data Primary Care Provider: Hugo Nixon Attending Provider: Hugo Nixon Admit Date/Time: 07/16/18 21:02
--- NOTE | 2018-07-21 13:24 | P.DS_ITS ---
History of Present Illness Chief complaint: GLF, Hypotension Discharge Providers Date of admission: 07/16/18 21:02 Primary care physician: Hugo Nixon MD Consults: 07/17/18 17:22 Consult to Physician Routine Comment: per MD Nixon, he has contacted MD Chen Consulting Provider: Meri Chen Reason for consultation: evaluation Has provider been notified: Yes Discharge provider: Gardenia Mercado MD Summary Discharge Diagnosis: Acute psychosis Anxiety Dementia UTI Urinary retention Normocytic anemia Hypertension Hospital Course: Patient admitted to hospital with acute urinary retention, UTI and acute psychosis. She was started on IV antibiotics and Dr. Chen was consulted. She slowly and steadily improved with scheduled Seroquel 100 mg daily. Benzodiazepines were held as it was thought this was exacerbating her confusion. She was discharged back to [facility] where she previously resided with Arte[place] catheter in place. She will have outpatient urology. She will have 5 more days of Septra. She will continue on her same outpatient medications. Status at Discharge Cognitive/behavioral status at discharge: Anxious but improved Functional status at discharge: uses cane/walker Overall status at discharge: patient is progressing back to baseline Time Spent with Patient Greater than 30 minutes Exam Vital Signs (past 8 hours): - 07/21/18 07:25 07/21/18 10:51 Temperature 97.4 F L Pulse Rate 84 Respiratory Rate 20 Blood Pressure 159/85 H Pulse Oximetry 98 97 Oxygen Delivery Method Room Air Oxygen Flow Rate 0 Narrative Exam Narrative: Alert and oriented x3, less anxious HEENT: Unremarkable Neck: Supple without adenopathy or thyromegaly Chest: Clear to auscultation bilaterally Cor: Regular rate and rhythm without murmur Abdomen: Positive bowel sounds, soft, nontender, nondistended Extremities: No edema, pulses intact DTRs intact Skin: No rash Objective Labs Result Diagrams: 07/21/18 07:19 07/21/18 07:19 Labs: Laboratory Results - last 24 hr 07/21/18 07/21/18 07:19 07:19 WBC 8.1 RBC 3.28 L Hgb 10.5 L Hct 29.9 L MCV 91.1 MCH 32.0 MCHC 35.2 RDW 14.0 Plt Count 218 Neut % (Auto) Not Reportable Lymph % (Auto) Not Reportable [place] % (Auto) Not Reportable Eos % (Auto) Not Reportable Baso % (Auto) Not Reportable Total Counted 100 Seg Neutrophils % 63.0 Band Neutrophils % 3.0 Lymphocytes % (Manual) 20.0 L Atypical Lymphs % 3.0 H Monocytes % (Manual) 5.0 Metamyelocytes % 2.0 H Myelocytes % 4.0 H Neutrophils # (Manual) 5346 RBC Morphology Normal morphology Sodium 133 L Potassium 3.9 Chloride 99 Carbon Dioxide 27 BUN 28 H Creatinine 1.10 H Estimated GFR 47.7 L BUN/Creatinine Ratio 25.5 H Glucose 79 L Calcium 9.0 Discharge Plan Discharge Plan Patient Disposition: Assisted Living Transfer to: [facility] Other facility: [facility] assisted living Under care of provider: Rufino Nixon Transportation: Wheelchair Consult as needed: Dental, Hearing, Mental health, Podiatry and Vision I certify the postop hospital group home care is medically necessary on a continuing basis for any conditions for which he/ she received care during this hospitalization.: Yes Discharge Med Rec/Prescriptions Discharge Orders: Discharge (Order); Ordered 07/21/18 Ordered By: Gardenia Mercado Discharge Health Status Precautions: [place] Provider Discharge Instructions Diet: Diet as Tolerated Liquid consistency: Normal/Thin Food texture: Regular Activity: as tolerated Catheter: 2-way [facility] Reason for rehabilitation: Other Rehab type: Physical therapy and Occupational therapy Discharge Data Primary Care Provider: Hugo Nixon Attending Provider: Hugo Nixon Admit Date/Time: 07/16/18 21:02
--- NOTE | 2018-07-21 13:41 | CM.DPC ---
DCP Cont: Spoke with Aggie at [facility]. Let her know that we have discharge orders. Went ahead and faxed over clinical notes. Dr. Mercado signed prescriptions and med list. Stated that they could pick her up at 2:30 today. Airam, nurse is aware. P: Patient to discharge to [facility] today. Yaquelin Mathur RN/Dobby Loom Fixer
== END 2018-07-21 14:52 | DRG 885 ==
LOC: ED 20:55 → AC 21:03
PROVIDERS: Emergency Medicine; Family Medicine; Admitting Provider Family Medicine; Emergency Provider Emergency Medicine; Family Provider Family Medicine; PCP Family Medicine; Visit Provider Family Medicine
DX: F23 Brief psychotic disorder (principal); N39.0 Urinary tract infection, site not specified; N17.9 Acute kidney failure, unspecified; E87.1 Hypo-osmolality and hyponatremia; B95.2 Enterococcus as the cause of diseases classified elsewhere; E86.0 Dehydration; I95.9 Hypotension, unspecified; R33.9 Retention of urine, unspecified; F39 Unspecified mood [affective] disorder; E03.9 Hypothyroidism, unspecified; I12.9 Hypertensive chronic kidney disease with stage 1 through stage 4 chronic kidney disease, or unspecified chronic kidney disease; N18.9 Chronic kidney disease, unspecified; N28.89 Other specified disorders of kidney and ureter; D64.9 Anemia, unspecified; F41.9 Anxiety disorder, unspecified; T42.4X5A Adverse effect of benzodiazepines, initial encounter
CPT/HCPCS: 36415; 36591; 74022; 80048; 80053; 81001; 82550; 82728; 83540; 83550; 83605; 84145; 84484; 85025; 85045; 87040; 87077; 87086; 93005; 93010; 94762; 96361; 96365; 96375; 99221; 99231; 99284; 99285; J0696; J1650; J2930; J7050

== ENCOUNTER → 2018-08-08 13:34 | Outpatient (CLI) | payer MEDICARE, OTHER, SELFPAY ==
[2018-07-16 22:48] VITALS: BMI 19.1
[2018-08-08 13:55] LABS: Hematocrit 34.4 % (36-46); Hemoglobin 11.7 g/dL (12.0-16.0); Mean Corpuscular HGB Conc 33.9 % (30-36); Mean Corpuscular Hemoglobin 31.6 PG (26-34); Mean Corpuscular Volume 93.1 fL (80-100); Platelet Count 276 X10^3/uL (150-400); Red Cell Distribution Width 14.8 % (11.6-14.8); White Blood Cell Count 9.5 X10^3/uL (4.5-11.0)
[2018-08-08 14:00] LABS: Add Manual Diff / Slide Review YES
[2018-08-08 14:07] LABS: BUN Creatinine Ratio 26.9 (6-22); Blood Urea Nitrogen 43 mg/dL (7-17); Carbon Dioxide 28 mmol/L (22-32); Chloride 103 mmol/L (98-107); Estimated Glomerular Filt Rate 30.9 mL/min (>60); Glucose 121 mg/dL (80-110); HEMOLYSIS < 15 (0-50); Potassium 4.8 mmol/L (3.4-5.1); Sodium 141 mmol/L (137-145)
[2018-08-08 14:25] LABS: Neutrophils Absolute Manual 6175 /uL (3000-5900); Total Cells Counted 100
[2018-08-08 14:26] LABS: Morphology Comment IMMATURE MONOS; RBC Morphology Normal Morphology
== END ==
PROVIDERS: Family Provider Family Medicine; PCP Family Medicine; Visit Provider Internal Medicine Nephrology
DX: D63.1 Anemia in chronic kidney disease (principal)
CPT/HCPCS: 36415; 80048; 85025

== ENCOUNTER → 2018-08-20 16:33 | Outpatient (CLI) | payer MEDICARE, OTHER, SELFPAY ==
[2018-07-16 22:48] VITALS: BMI 19.1
[2018-08-20 18:01] LABS: Creatinine Urine Random 23.6 mg/dL; Protein (Total) Urine Random 36 mg/dL (0-12); Protein Creatinine Ratio Urine 1.52 GRAM/24H
[2018-08-23 16:52] LABS: Parathyroid Hormone Int 55 pg/mL (14-64)
== END ==
PROVIDERS: Family Provider Family Medicine; PCP Family Medicine; Visit Provider Student in an Organized Health Care Education/Training Program
DX: R80.9 Proteinuria, unspecified (principal); N25.81 Secondary hyperparathyroidism of renal origin
CPT/HCPCS: 82570; 83970; 84156

== ENCOUNTER → 2018-12-07 08:24 | Outpatient (REF) | payer MEDICARE, OTHER, SELFPAY ==
[2018-07-16 22:48] VITALS: BMI 19.1
[2018-12-07 10:57] LABS: Add Manual Diff / Slide Review NO; Basophils Absolute Auto 100 /uL (0-100); Basophils Percent Auto 0.6 % (0-2); Eosinophils Absolute Auto 0 /uL (0-450); Eosinophils Percent Auto 0.1 % (2-4); Hematocrit 32.8 % (36-46); Hemoglobin 10.7 g/dL (12.0-16.0); Lymphocytes Absolute Auto 3800 /uL (1100-4500); Lymphocytes Percent Auto 32.9 % (25-40); Mean Corpuscular HGB Conc 32.7 % (30-36); Mean Corpuscular Hemoglobin 30.2 PG (26-34); Mean Corpuscular Volume 92.4 fL (80-100); Monocytes Absolute Auto 800 /uL (0-900); Monocytes Percent Auto 6.7 % (3-14); Neutrophils Absolute Auto 7000 /uL (1500-7000); Neutrophils Percent Auto 59.7 % (50-75); Platelet Count 279 X10^3/uL (150-400); Red Blood Cell Count 3.55 X10^6/uL (4.0-5.2); Red Cell Distribution Width 15.6 % (11.6-14.8); White Blood Cell Count 11.7 X10^3/uL (4.5-11.0)
[2018-12-07 11:11] LABS: Alanine Aminotransferase 20 IU/L (9-52); Albumin 3.3 g/dL (3.5-5.0); Albumin Globulin Ratio 1.3 (1.0-2.8); Alkaline Phosphatase 58 U/L (38-126); Aspartate Aminotransferase 20 IU/L (14-36); BUN Creatinine Ratio 22.7 (6-22); Bilirubin Total 0.2 mg/dL (0.2-1.3); Blood Urea Nitrogen 25 mg/dL (7-17); Carbon Dioxide 22 mmol/L (22-32); Chloride 103 mmol/L (98-107); Estimated Glomerular Filt Rate 47.7 mL/min (>60); Globulin 2.6 g/dL (1.7-4.1); Glucose 57 mg/dL (80-110); HEMOLYSIS 16 (0-50); Potassium 4.1 mmol/L (3.4-5.1); Sodium 134 mmol/L (137-145); Total Protein 5.9 g/dL (6.3-8.2)
== END ==
LOC: LAB 08:24
PROVIDERS: Family Provider Family Medicine; PCP Family Medicine; Visit Provider Family Medicine
DX: Z79.899 Other long term (current) drug therapy (principal)
CPT/HCPCS: 36415; 80053; 85025

== ENCOUNTER → 2019-02-15 08:33 | Outpatient (REF) | payer MEDICARE, OTHER, SELFPAY ==
[2018-07-16 22:48] VITALS: BMI 19.1
[2019-02-15 10:47] LABS: Hematocrit 28.9 % (36-46); Mean Corpuscular HGB Conc 34.5 % (30-36); Mean Corpuscular Hemoglobin 32.1 PG (26-34); Mean Corpuscular Volume 92.8 fL (80-100); Platelet Count 157 X10^3/uL (150-400); Red Blood Cell Count 3.11 X10^6/uL (4.0-5.2); Red Cell Distribution Width 16.2 % (11.6-14.8)
[2019-02-15 10:48] LABS: Add Manual Diff / Slide Review YES
[2019-02-15 11:14] LABS: Alanine Aminotransferase 24 IU/L (9-52); Albumin 3.2 g/dL (3.5-5.0); Albumin Globulin Ratio 1.3 (1.0-2.8); Alkaline Phosphatase 78 U/L (38-126); Aspartate Aminotransferase 16 IU/L (14-36); Bilirubin Total 0.2 mg/dL (0.2-1.3); Blood Urea Nitrogen 42 mg/dL (7-17); Calcium 8.8 mg/dL (8.4-10.2); Carbon Dioxide 27 mmol/L (22-32); Chloride 100 mmol/L (98-107); Estimated Glomerular Filt Rate 43.1 mL/min (>60); Globulin 2.4 g/dL (1.7-4.1); Glucose 74 mg/dL (80-110); HEMOLYSIS < 15 (0-50); Potassium 4.6 mmol/L (3.4-5.1); Sodium 134 mmol/L (137-145); Total Protein 5.6 g/dL (6.3-8.2)
[2019-02-15 11:34] LABS: Neutrophils Absolute Manual 5400 /uL (3000-5900); Total Cells Counted 100
[2019-02-15 11:35] LABS: Anisocytosis 1+
== END ==
LOC: LAB 08:33
PROVIDERS: Family Provider Family Medicine; PCP Family Medicine; Visit Provider Family Medicine
DX: Z79.899 Other long term (current) drug therapy (principal); R53.83 Other fatigue; J11.1 Influenza due to unidentified influenza virus with other respiratory manifestations
CPT/HCPCS: 36415; 80053; 85025

== ENCOUNTER → 2019-02-16 18:14 | Outpatient (REF) | payer MEDICARE, OTHER, SELFPAY ==
[2018-07-16 22:48] VITALS: BMI 19.1
[2019-02-16 18:18] LABS: RBC Urine None Seen (0-5/HPF)
[2019-02-16 18:21] LABS: Appearance Urine UA CLEAR; Bilirubin Urine UA NEGATIVE (NEGATIVE); Color Urine UA YELLOW; Glucose Urine UA NEGATIVE (Negative); Ketones Urine UA NEGATIVE (NEGATIVE); Leukocyte Esterase Urine UA 3+ (NEGATIVE); Nitrite Urine UA POSITIVE (Negative); Occult Blood Urine UA 1+ (Negative); Protein Urine UA TRACE (Negative); Specific Gravity Urine UA 1.015 (1.000-1.035); Urobilinogen Urine UA 0.2 E.U./dL (0.2)
[2019-02-16 18:34] LABS: WBC Urine 5-10/HPF (0-5/HPF)
[2019-02-16 18:35] LABS: Amorphous Sediment Urine 3+; Bacteria Urine Many (>30); Culture Indicated Urine Cult Not Indicated; Squamous Epithelial Cell Urine 5-10 /HPF
== END ==
LOC: LAB 18:14
PROVIDERS: Family Provider Family Medicine; PCP Family Medicine; Visit Provider Family Medicine
DX: N39.0 Urinary tract infection, site not specified (principal)
CPT/HCPCS: 81001; 87077; 87086; 87186

== ENCOUNTER → 2019-02-27 09:22 | Outpatient (REF) | payer MEDICARE, OTHER, SELFPAY ==
[2018-07-16 22:48] VITALS: BMI 19.1
[2019-02-27 11:22] LABS: Iron 103 ug/dL (37-170)
[2019-02-27 12:24] LABS: Folate > 20.0 ng/mL (2.76-20.0); Vitamin B12 606 pg/mL (239-931)
[2019-02-27 12:43] LABS: HEMOLYSIS < 15 (0-50); Percent Iron Saturation 41 % (15-50); Total Iron Binding Capacity 254 ug/dL (265-497); Transferrin 217 mg/dL (206-381)
== END ==
LOC: LAB 09:22
PROVIDERS: Family Provider Family Medicine; PCP Family Medicine; Visit Provider Family Medicine
DX: D64.9 Anemia, unspecified (principal)
CPT/HCPCS: 36415; 82607; 82728; 82746; 83540; 83550

== ENCOUNTER → 2019-03-08 08:31 | Outpatient (REF) | payer MEDICARE, OTHER, SELFPAY ==
[2018-07-16 22:48] VITALS: BMI 19.1
[2019-03-08 10:22] LABS: Hematocrit 29.1 % (36-46); Hemoglobin 9.9 g/dL (12.0-16.0); Mean Corpuscular HGB Conc 33.8 % (30-36); Mean Corpuscular Hemoglobin 32.1 PG (26-34); Mean Corpuscular Volume 94.8 fL (80-100); Platelet Count 152 X10^3/uL (150-400); Red Blood Cell Count 3.07 X10^6/uL (4.0-5.2); Red Cell Distribution Width 16.3 % (11.6-14.8); White Blood Cell Count 12.3 X10^3/uL (4.5-11.0)
[2019-03-08 10:28] LABS: Alanine Aminotransferase 18 IU/L (9-52); Albumin Globulin Ratio 1.3 (1.0-2.8); Alkaline Phosphatase 75 U/L (38-126); Aspartate Aminotransferase 20 IU/L (14-36); Bilirubin Total 0.3 mg/dL (0.2-1.3); Blood Urea Nitrogen 37 mg/dL (7-17); Calcium 8.4 mg/dL (8.4-10.2); Carbon Dioxide 25 mmol/L (22-32); Chloride 101 mmol/L (98-107); Estimated Glomerular Filt Rate 53.2 mL/min (>60); Globulin 2.3 g/dL (1.7-4.1); Glucose 62 mg/dL (80-110); HEMOLYSIS < 15 (0-50); Potassium 4.5 mmol/L (3.4-5.1); Sodium 133 mmol/L (137-145); Total Protein 5.3 g/dL (6.3-8.2)
[2019-03-08 10:31] LABS: Add Manual Diff / Slide Review YES
[2019-03-08 11:53] LABS: Neutrophils Absolute Manual 7503 /uL (3000-5900); Total Cells Counted 100
[2019-03-08 11:55] LABS: Microcytosis 1+
[2019-03-08 11:56] LABS: Anisocytosis 1+
== END ==
LOC: LAB 08:31
PROVIDERS: Family Provider Family Medicine; PCP Family Medicine; Visit Provider Family Medicine
DX: Z79.899 Other long term (current) drug therapy (principal)
CPT/HCPCS: 36415; 80053; 85025

== ENCOUNTER → 2019-03-15 08:10 | Outpatient (REF) | payer MEDICARE, OTHER, SELFPAY ==
[2018-07-16 22:48] VITALS: BMI 19.1
[2019-03-15 09:43] LABS: BUN Creatinine Ratio 36.4 (6-22); Blood Urea Nitrogen 40 mg/dL (7-17); Carbon Dioxide 25 mmol/L (22-32); Chloride 100 mmol/L (98-107); Estimated Glomerular Filt Rate 47.7 mL/min (>60); Glucose 70 mg/dL (80-110); HEMOLYSIS < 15 (0-50); Potassium 4.6 mmol/L (3.4-5.1); Sodium 133 mmol/L (137-145)
[2019-03-15 10:14] LABS: Thyroid Stimulating Hormone 6.17 uIU/mL (0.47-4.68)
== END ==
LOC: LAB 08:10
PROVIDERS: Family Provider Family Medicine; PCP Family Medicine; Visit Provider Internal Medicine
DX: E03.9 Hypothyroidism, unspecified (principal); N18.9 Chronic kidney disease, unspecified
CPT/HCPCS: 36415; 80048; 84443

== ENCOUNTER → 2019-04-19 08:42 | Outpatient (ROUT) | payer MEDICARE, OTHER, SELFPAY ==
[2018-07-16 22:48] VITALS: BMI 19.1
[2019-04-19 10:15] LABS: Blood Urea Nitrogen 30 mg/dL (7-17); Calcium 9.5 mg/dL (8.4-10.2); Carbon Dioxide 25 mmol/L (22-32); Chloride 101 mmol/L (98-107); Estimated Glomerular Filt Rate 33.3 mL/min (>60); Glucose 89 mg/dL (80-110); HEMOLYSIS < 15 (0-50); Potassium 4.9 mmol/L (3.4-5.1); Sodium 135 mmol/L (137-145)
== END ==
PROVIDERS: Family Provider Family Medicine; PCP Family Medicine; Visit Provider Family Medicine
DX: N18.9 Chronic kidney disease, unspecified (principal)
CPT/HCPCS: 36415; 80048

== ENCOUNTER → 2019-04-24 07:42 | Outpatient (ROUT) | payer MEDICARE, OTHER, SELFPAY ==
[2018-07-16 22:48] VITALS: BMI 19.1
[2019-04-24 08:35] LABS: BUN Creatinine Ratio 23.1 (6-22); Blood Urea Nitrogen 30 mg/dL (7-17); Calcium 9.1 mg/dL (8.4-10.2); Carbon Dioxide 24 mmol/L (22-32); Chloride 101 mmol/L (98-107); Estimated Glomerular Filt Rate 39.3 mL/min (>60); Glucose 116 mg/dL (80-110); HEMOLYSIS < 15 (0-50); Sodium 133 mmol/L (137-145)
== END ==
PROVIDERS: Family Provider Family Medicine; PCP Family Medicine; Visit Provider Family Medicine
DX: D64.9 Anemia, unspecified (principal)
CPT/HCPCS: 36415; 80048

== ENCOUNTER → 2019-06-03 07:25 | Outpatient (ROUT) | payer MEDICARE, OTHER, SELFPAY ==
[2018-07-16 22:48] VITALS: BMI 19.1
[2019-06-03 08:10] LABS: Alanine Aminotransferase 14 IU/L (9-52); Albumin 3.5 g/dL (3.5-5.0); Albumin Globulin Ratio 1.3 (1.0-2.8); Alkaline Phosphatase 97 U/L (38-126); Aspartate Aminotransferase 18 IU/L (14-36); BUN Creatinine Ratio 33.1 (6-22); Bilirubin Total 0.4 mg/dL (0.2-1.3); Blood Urea Nitrogen 43 mg/dL (7-17); Calcium 9.3 mg/dL (8.4-10.2); Carbon Dioxide 27 mmol/L (22-32); Chloride 103 mmol/L (98-107); Estimated Glomerular Filt Rate 39.2 mL/min (>60); Globulin 2.8 g/dL (1.7-4.1); Glucose 77 mg/dL (80-110); HEMOLYSIS < 15 (0-50); Potassium 4.5 mmol/L (3.4-5.1); Sodium 138 mmol/L (137-145); Total Protein 6.3 g/dL (6.3-8.2)
== END ==
PROVIDERS: Family Provider Family Medicine; PCP Family Medicine; Visit Provider Family Medicine
DX: N18.9 Chronic kidney disease, unspecified (principal)
CPT/HCPCS: 36415; 80053

== ENCOUNTER → 2019-07-03 07:26 | Outpatient (ROUT) | payer MEDICARE, OTHER, SELFPAY ==
[2018-07-16 22:48] VITALS: BMI 19.1
[2019-07-03 08:54] LABS: BUN Creatinine Ratio 19.4 (6-22); Blood Urea Nitrogen 33 mg/dL (7-17); Carbon Dioxide 26 mmol/L (22-32); Chloride 102 mmol/L (98-107); Estimated Glomerular Filt Rate 28.8 mL/min (>60); Glucose 91 mg/dL (80-110); HEMOLYSIS < 15 (0-50); Potassium 4.7 mmol/L (3.4-5.1); Sodium 136 mmol/L (137-145)
== END ==
PROVIDERS: Family Provider Family Medicine; PCP Family Medicine; Visit Provider Family Medicine
DX: N28.9 Disorder of kidney and ureter, unspecified (principal)
CPT/HCPCS: 36415; 80048

== ENCOUNTER → 2019-07-19 07:56 | Outpatient (ROUT) | payer MEDICARE, OTHER, SELFPAY ==
[2018-07-16 22:48] VITALS: BMI 19.1
[2019-07-19 08:46] LABS: BUN Creatinine Ratio 14.7 (6-22); Blood Urea Nitrogen 25 mg/dL (7-17); Calcium 9.5 mg/dL (8.4-10.2); Carbon Dioxide 26 mmol/L (22-32); Chloride 103 mmol/L (98-107); Estimated Glomerular Filt Rate 28.8 mL/min (>60); Glucose 89 mg/dL (80-110); HEMOLYSIS < 15 (0-50); Potassium 4.3 mmol/L (3.4-5.1); Sodium 137 mmol/L (137-145)
== END ==
PROVIDERS: Family Provider Family Medicine; PCP Family Medicine; Visit Provider Family Medicine
DX: N18.9 Chronic kidney disease, unspecified (principal)
CPT/HCPCS: 36415; 80048

== ENCOUNTER → 2019-07-26 07:36 | Outpatient (ROUT) | payer MEDICARE, OTHER, SELFPAY ==
[2019-07-24 12:05] VITALS: BMI 19.1
[2019-07-26 09:22] LABS: BUN Creatinine Ratio 11.3 (6-22); Blood Urea Nitrogen 18 mg/dL (7-17); Calcium 9.8 mg/dL (8.4-10.2); Carbon Dioxide 22 mmol/L (22-32); Chloride 101 mmol/L (98-107); Estimated Glomerular Filt Rate 30.9 mL/min (>60); Glucose 78 mg/dL (80-110); HEMOLYSIS < 15 (0-50); Potassium 4.1 mmol/L (3.4-5.1); Sodium 135 mmol/L (137-145)
== END ==
PROVIDERS: Family Provider Family Medicine; PCP Family Medicine; Visit Provider Family Medicine
DX: Z79.899 Other long term (current) drug therapy (principal)
CPT/HCPCS: 36415; 80048

== ENCOUNTER → 2019-07-29 09:48 | Outpatient (ROUT) | payer MEDICARE, OTHER, SELFPAY ==
[2019-07-24 12:05] VITALS: BMI 19.1
[2019-07-29 10:13] LABS: Blood Urea Nitrogen 18 mg/dL (7-17); Calcium 10.1 mg/dL (8.4-10.2); Carbon Dioxide 24 mmol/L (22-32); Chloride 102 mmol/L (98-107); Estimated Glomerular Filt Rate 26.9 mL/min (>60); Glucose 82 mg/dL (80-110); HEMOLYSIS < 15 (0-50); Potassium 4.1 mmol/L (3.4-5.1); Sodium 136 mmol/L (137-145)
== END ==
PROVIDERS: Family Provider Family Medicine; PCP Family Medicine; Visit Provider Family Medicine
DX: N18.9 Chronic kidney disease, unspecified (principal)
CPT/HCPCS: 36415; 80048

== ENCOUNTER → 2019-08-23 07:18 | Outpatient (ROUT) | payer MEDICARE, OTHER, SELFPAY ==
[2019-07-24 12:05] VITALS: BMI 19.1
[2019-08-23 08:08] LABS: Add Manual Diff / Slide Review NO; Basophils Absolute Auto 100 /uL (0-100); Basophils Percent Auto 0.6 % (0-2); Eosinophils Absolute Auto 200 /uL (0-450); Eosinophils Percent Auto 1.5 % (2-4); Hematocrit 33.4 % (36-46); Lymphocytes Absolute Auto 3700 /uL (1100-4500); Lymphocytes Percent Auto 36.4 % (25-40); Mean Corpuscular HGB Conc 32.9 % (30-36); Mean Corpuscular Volume 88.2 fL (80-100); Monocytes Absolute Auto 1100 /uL (0-900); Monocytes Percent Auto 10.8 % (3-14); Neutrophils Absolute Auto 5200 /uL (1500-7000); Neutrophils Percent Auto 50.7 % (50-75); Platelet Count 262 X10^3/uL (150-400); Red Blood Cell Count 3.78 X10^6/uL (4.0-5.2); Red Cell Distribution Width 15.4 % (11.6-14.8); White Blood Cell Count 10.2 X10^3/uL (4.5-11.0)
[2019-08-23 08:22] LABS: Alanine Aminotransferase 18 IU/L (9-52); Albumin 3.2 g/dL (3.5-5.0); Albumin Globulin Ratio 0.8 (1.0-2.8); Alkaline Phosphatase 80 U/L (38-126); Aspartate Aminotransferase 38 IU/L (14-36); BUN Creatinine Ratio 16.7 (6-22); Bilirubin Total 0.6 mg/dL (0.2-1.3); Blood Urea Nitrogen 45 mg/dL (7-17); Calcium 12.2 mg/dL (8.4-10.2); Carbon Dioxide 25 mmol/L (22-32); Chloride 104 mmol/L (98-107); Estimated Glomerular Filt Rate 16.9 mL/min (>60); Globulin 4.1 g/dL (1.7-4.1); Glucose 88 mg/dL (80-110); HEMOLYSIS 20 (0-50); Potassium 3.4 mmol/L (3.4-5.1); Sodium 140 mmol/L (137-145); Total Protein 7.3 g/dL (6.3-8.2)
== END ==
PROVIDERS: Family Provider Family Medicine; PCP Family Medicine; Visit Provider Family Medicine
DX: Z79.899 Other long term (current) drug therapy (principal); R53.83 Other fatigue
CPT/HCPCS: 36415; 80053; 85025

== ENCOUNTER → 2019-08-28 07:35 | Outpatient (ROUT) | payer MEDICARE, OTHER, SELFPAY ==
[2019-07-24 12:05] VITALS: BMI 19.1
[2019-08-28 08:16] LABS: BUN Creatinine Ratio 14.5 (6-22); Blood Urea Nitrogen 58 mg/dL (7-17); Carbon Dioxide 28 mmol/L (22-32); Chloride 111 mmol/L (98-107); Estimated Glomerular Filt Rate 10.7 mL/min (>60); Glucose 97 mg/dL (80-110); HEMOLYSIS < 15 (0-50); Potassium 3.8 mmol/L (3.4-5.1); Sodium 148 mmol/L (137-145)
[2019-08-28 08:49] LABS: Calcium 12.8 mg/dL (8.4-10.2)
== END ==
PROVIDERS: Family Provider Family Medicine; PCP Family Medicine; Visit Provider Family Medicine
DX: Z79.899 Other long term (current) drug therapy (principal)
CPT/HCPCS: 36415; 80048